=== PATIENT | female | born 1995 | race Caucasian/White ===

== ENCOUNTER 2024-07-02 16:12 | Emergency (ER) | payer SELFPAY ==
--- OUTSIDE RECORDS SUMMARY | 2024-07-02 16:18 | XMS REPORT | Continuity of Care Document ---
Author Name Unknown Address [address] [facility] [address] [place] [address] [facility] Address [address] [facility] [place] [address] Care Team Providers Care Chemistry Quality Control Analyst Name Role Phone PCP, PATIENT DOES NOT HAVE A Primary Care Physic mark Unavailable Eileen Hairston [facility] Attending Clinician JENNY Barbosa Attending Clinician Unavail TANESHA Vasquez Attending Clinician Tanesha Herrera DO Attending Clinician [phone] Francesco Shane Attending Clinician Unavailab JACLYN Malloy Attending Clinician Unavailable JACLYN NELSON Attending Clinician Unavailable Provider, Ang-Rmchp Temp Attending Clinician Cassie vailable Zander SAMANO Attending Clinician Unavailable Zander Simeon Attending Clinician Tong Hurtado Attending Clinician Unavailabl e Physician, No Primary or Family Admitting Clinic mark Unavailable Jada Mistry MD Unavailable Lenora Dudley MD Unavailable Unavailable Marissa Raphael MA Unavailable Unavailable Farrah Ortez MD Unavailable [phone] Kianna Potts MA Unavailable Unavailable Nellie Kenney MA Unavailable Unavailable Cutler DO, Vy Unavailable Payers Payer Name Policy Type Policy Number Effective Date Expirati on Date Source [employer] [place] [employer] [id number] 2022 00:00:00 [employer] [place] [employer] D [id number] 2014 00:00:00 2022 00:00:00 Capitated E [id number] 2022 00:00:00 2022 00:00:00 HTW-RMCHP [id number] 2022 00:00:00 Problems Condition Name Condition Details Condition Category Status Onset Date Resolution Date Last Treatment Date Treating Clinician Comments Source Rubella non-immune status, antepartum Rubella non-immune status, antepartum Disease Active 2012-11 00:00: 00 Overview: Formattin g of this note might be different from the original. Will need pp [facility] Depression Depression 47224-7 Active 2014-01-30 14:22:33 2.16.84 0.1.113 883.4.2 none noneMuluzanderu MD Jada vallejo 43980-2 Active 2013-04-27 08:48:46 Jada Mistry 2.16.84 0.1.113 883.4.2 Pharyngiti s (Renamed from Pharyngeal inflammati on) Pharyngiti s (Renamed from Pharyngeal inflammati on) (J02.9) (942)MD Lenora Dudley 74288-0 Active 2014-02-20 16:26:32 DudleyLenora davis 2.16.84 0.1.113 883.4.2 Post-traum a response Post-traum a response (F43.29) (309.9)Pro gnosis: patient scheduled with Dr. Epstein in February for follow up. she has good support with family. no suicidal or homicidal ideation. will refill psych meds for 1 month. [facility] as of MD Jada Horvath 07451-0 Active 2014-01-30 17:36:51 Jada Mistry 2.16.84 0.1.113 883.4.2 POST-TRAUM ATIC STRESS DISORDER POST-TRAUM ATIC STRESS DISORDER 11561-7 Active 2014-01-30 14:24:49 2.16.84 0.1.113 883.4.2 Pregnancie s () Pregnancie s ()YAMILET David nts: 0. 19689-3 Active 2014-02-20 13:23:08 Marissa Raphael 2.16.84 0.1.113 883.4.2 Routine child health exam Routine child health exam (V20.2)MD Jada Arndt 28590-2 Active 2013-04-27 08:48:46 Jada Mistry 2.16.84 0.1.113 883.4.2 SURVEILLAN CE OF OTHER CONTRACEPT CASSY METHOD DEPO-PROVE RA SURVEILLAN CE OF OTHER CONTRACEPT CASSY METHOD DEPO-PROVE RA (V25.49)Pr ognosis: Discussed that depot shot will not protect against STDs. eat diet rich in calcium. as of MD Jada Horvath 14056-8 Active 2014-01-30 17:50:07 Jada Mistry 2.16.84 0.1.113 883.4.2 Deliveries (Para) Deliveries (Para)Comm ents: Julieta 65461-1 Active 2022-07-08 09:42:23 2.16.84 0.1.113 883.4.2 Pregnancie s () Pregnancie s ()C omments: 2. 48391-3 Active 2022-07-08 09:42:20 2.16.84 0.1.113 883.4.2 Term TermCommen ts: 2. 68976-4 Active 2022-07-08 09:42:27 2.16.84 0.1.113 883.4.2 Worried well Worried well (Z71.1) (V65.5)Pro gnosis: Discussed pt's symptoms and concerns in detail. Physical exam done today showed no abnormalit ies and pt reassured. Pt instructed to f/u if she notes the area in question appears infected and oozing.Pt encouraged to also set up for her well woman exam.Infec tion precaution s provided.A ll of pt's questions and concerns addressed and pt verbalized understand ing. as of MD Farrah De Santiago 46902-1 Active 2022-07-08 13:08:31 Farrah Ortez 2.16.84 0.1.113 883.4.2 Encounter for gynecologi audrey examinatio n - 21-24 years old (Renamed from Encounter for gynecologi audrey examinatio n) Encounter for gynecologi audrey examinatio n - 21-24 years old (Renamed from Encounter for gynecologi audrey examinatio n) (Z01.419) (V72.31)YAMILET Jaramillo 21831-9 Active 2022-07-30 13:58:25 Kianna Potts 2.16.84 0.1.113 883.4.2 Deliveries (Para) Deliveries (Para)YAMILET Potts nts: 2. 22999-4 Active 2022-07-30 14:03:03 Kianna Potts 2.16.84 0.1.113 883.4.2 Pregnancie s () Pregnancie s ()YAMILET Mckenzie nts: 2. 17973-0 Active 2022-07-30 14:03:03 Kianna Potts 2.16.84 0.1.113 883.4.2 Term TermLaYAMILET wilson nts: 2. 28270-9 Active 2022-07-30 14:03:03 Kianna Potts 2.16.84 0.1.113 883.4.2 Attention Deficit Hyperactiv ity Disorder Attention Deficit Hyperactiv ity Disorder Active 2022-08-25 14:01:39 2.16.84 0.1.113 883.4.2 Deliveries (Para) Deliveries (Para)Comm ents: 2. Active 2022-08-25 14:20:40 2.16.84 0.1.113 883.4.2 Depression Depression Active 2022-08-25 14:01:39 2.16.84 0.1.113 883.4.2 none none Active 2022-08-25 14:01:39 2.16.84 0.1.113 883.4.2 POST-TRAUM ATIC STRESS DISORDER POST-TRAUM ATIC STRESS DISORDER Active 2022-08-25 14:01:39 2.16.84 0.1.113 883.4.2 Pregnancie s () Pregnancie s ()C omments: 2. 44588-4 Active 2022-08-25 14:20:40 2.16.84 0.1.113 883.4.2 Pregnancie s () Pregnancie s ()C omments: 0. 49260-1 Active 2022-08-25 14:20:40 2.16.84 0.1.113 883.4.2 Term TermCommen ts: 2. 43276-0 Active 2022-08-25 14:20:40 2.16.84 0.1.113 883.4.2 Vaginal cyst Vaginal cyst (N89.8) (623.8)Pro gnosis: ~2 x3 cm left side soft non tender vaginal cyst noted.Inci shabana and Drainage Procedure NotePRE-OP DIAGNOSIS: vaginal cystPOST-O P DIAGNOSIS: Same PROCEDURE: incision and drainage of vaginal cystPerfor anthony Physician: Dr. Rice URE: A timeout protocol was performed prior to initiating the procedure. The area was prepared and draped in the usual, sterile manner. The site was anesthetiz ed with 2% lidocaine with epinephrin e. A linear incision along the local skin line of the vagina was made and copious amount of pus noted and expressed. It was non foul smelling white purulent material. The cyst sac was ored and no capsule or cyst wall noted to be remove. Few stitches were placed to close incision and cyst opening. Bleeding was minimal. Followup: The patient tolerated the procedure well without complicati ons. Standard post-proce dure care is explained and return precaution s are given. as of MD Farrah De Santiago 15738-1 Active 2022-08-29 14:29:34 Farrah Ortez 2.16.84 0.1.113 883.4.2 BMI 25.0-25.9, adult (Renamed from Body mass index (BMI) of 25.0 to 25.9 in adult) BMI 25.0-25.9, adult (Renamed from Body mass index (BMI) of 25.0 to 25.9 in adult) (Z68.25) (V85.21)YAMILET Lee 47325-3 Active 2022-09-01 13:39:13 Nellie Kenney 2.16.84 0.1.113 883.4.2 Nicotine dependence Nicotine dependence (F17.200) (305.1)Pha n, DO Debra 81343-1 Active 2022-09-01 13:53:34 CutlerGerhardy 2.16.84 0.1.113 883.4.2 POST-TRAUM ATIC STRESS DISORDER POST-TRAUM ATIC STRESS DISORDERPh an, [place] Debra 07351-4 Active 2022-09-01 13:53:55 Cutler, Vy 2.16.84 0.1.113 883.4.2 Unspecifie d Diagnosis Unspecifie d DiagnosisR YAMILET shoemaker 81967-6 Active 2022-09-01 13:38:40 Nellie Kenney 2.16.84 0.1.113 883.4.2 Encounter for management and injection of depo-Prove ra (Renamed from Encounter for management and injection of injectable progestin contracept cassy) Encounter for management and injection of depo-Prove ra (Renamed from Encounter for management and injection of injectable progestin contracept cassy) (Z30.42) (V25.49)DO Debra Mcdonald 46406-6 Active 2022-09-01 16:12:07 Debra Cutler 12.25.83 0.1.113 883.4.2 Attention Deficit Hyperactiv ity Disorder Attention Deficit Hyperactiv ity DisorderMu MD Jada araujo 28155-7 Active 2014-01-30 17:44:37 Jada Mistry 12.25.83 0.1.113 883.4.2 Allergies, Adverse Reactions, Alerts Allergy Name Allergy Type Status Severity Reaction(s) Onset Date Inactive Date Treating Clinician Comments Source No Known Allergie s DA Active U 2020-11 00:00: 00 [facility] No Known Allergie s DA Active U 2020-11 00:00: 00 [facility] No Known Allergie s DA Active U 2020-11 00:00: 00 [facility] No Known Allergie s DA Active U 08-06 00:00: 00 [facility] No Known Allergie s DA Active U 08-06 00:00: 00 [facility] NO KNOWN ALLERGIE S Drug Class Active [facility] Social History Social Habit Start Date Stop Date Quantity Comments Source History of tobacco use Cigarette Smoker [facility] Alcohol Use: Non Drinker / N o Alcohol Use. 2.0.1.062400 .4.2 tobacco exposure 2.1 840.1.222728 .4.2 Tobacco/Smoke Exposure: Daily. 2.0.1.1138 83 .4.2 Drug Use: No drug use. 12.25.83 0.1.684261 .4.2 Primary Control Method: None. 2.0.1.1 15264 .4.2 Tobacco use: Current every d ay smoker. Smokes 1 pack of cigarettes per day. 2.840.1.723173 .4.2 Vaping/JUULing: Current ever y day smoker. 2.16.840.1.517192 .4.2 Alcohol intake 2023-04-02 00:00:00 2023-04-02 00:00:00 Current drinker of alcohol (finding) [facility] Exposure to SARS-CoV-2 (event) 2022-10-10 00:00:00 2022-10-20 15:08:00 Not sure [facility] Cigarettes smoked current (pack per day) - Reported 2022-10-20 00:00:00 2022-10-20 00:00:00 [facility] Cigarette pack-years 2022-10-20 00:00:00 2022-10-20 00:00:00 [facility] Tobacco use and exposure 2022-10-20 00:00:00 2022-10-20 00:00:00 Smokeless tobacco non-user [facility] Alcohol Comment 2022-10-20 00:00:00 2022-10-20 00:00:00 social [facility] Sex Assigned At 1995 00:00:00 1995 00:00:00 [facility] Smoking Status Start Date Stop Date Source Tobacco smoking consumption unknown Smokes tobacco daily 2022-10-20 00:00:00 [facility] Medications Ordered Medication Name Filled Medication Name Start Date Stop Date Current Medication? Ordering Clinician Indication Dosage Frequency Signature (SIG) Comments Components Source QUEtiapine 25 mg tablet 2021-11 10:37: 33 10-22 00:00 :00 No 25mg Take 25 mg by mouth. [facility] topiramate 100 mg tablet 2021-11 10:36: 44 Yes 100mg Take 100 mg by mouth. [facility] escitalopra m oxalate 20 mg tablet 2021-11 10:36: 44 Yes 25mg Take 25 mg by mouth. [facility] DM/P-EPHED/ ACETAMINOPH /DOXYLAM (NYQUIL ORAL) 2021-11 15:48: 57 Yes Take by mouth. [facility] Depo-Rat Farmer a 150 MG/ML Intramuscul ar Suspension 2021-11 0 00:00: 00 No 1{emre liter} Depo-Prove ra 150 MG/ML Intramuscu lar Suspension ; 1 (one) milliliter every three months for 90 days Quantity: 1 {Millilite r}Refills: 3Ordered: , DO VyStart: 2Comments: 1 injection every 3 months for 1 year 1 injection every 3 months for 1 year 2.16.84 0.1.113 883.4.2 Depo-Rat Farmer a 150 MG/ML Intramuscul ar Suspension 2021-11 0 00:00: 00 No 1{emre liter} Depo-Prove ra 150 MG/ML Intramuscu lar Suspension ; 1 (one) milliliter every three months for 90 days Quantity: 1 {Millilite r}Refills: 3Ordered: , DO VyStart: 2Comments: 1 injection every 3 months for 1 year 1 injection every 3 months for 1 year 2.16.84 0.1.113 883.4.2 Depo-Rat Farmer a 150 MG/ML Intramuscul ar Suspension 2021-11 0 00:00: 00 No 1{emre liter} Depo-Prove ra 150 MG/ML Intramuscu lar Suspension ; 1 (one) milliliter every three months for 90 days Quantity: 1 {Millilite r}Refills: 3Ordered: , DO VyStart: 2Comments: 1 injection every 3 months for 1 year 1 injection every 3 months for 1 year 2.16.84 0.1.113 883.4.2 Depo-Rat Farmer a 150 MG/ML Intramuscul ar Suspension 2021-11 0 00:00: 00 No 1{emre liter} Depo-Prove ra 150 MG/ML Intramuscu lar Suspension ; 1 (one) milliliter every three months for 90 days Quantity: 1 {Millilite r}Refills: 3Ordered: , DO VyStart: 2Comments: 1 injection every 3 months for 1 year 1 injection every 3 months for 1 year 2.16.84 0.1.113 883.4.2 VICKS NYQUIL COLD & FLU, 15-6.25-325 MG/15ML (Oral Liquid) 2021-11 0-17 14:19: 08-25 00:00 :00 No VICKS NYQUIL COLD & FLU, 15-6.25-32 5MG/15ML (Oral Liquid); (15-6.25-3 25 MG/15ML) End: 2Status: Discontinu ed 2.16.84 0.1.113 883.4.2 VICKS NYQUIL COLD & FLU, 15-6.25-325 MG/15ML (Oral Liquid) 2021-11 0- 14:19: 08-25 00:00 :00 No VICKS NYQUIL COLD & FLU, 15-6.25-32 5MG/15ML (Oral Liquid); (15-6.25-3 25 MG/15ML) End: 2Status: Discontinu ed 2.16.84 0.1.113 883.4.2 VICKS NYQUIL COLD & FLU, 15-6.25-325 MG/15ML (Oral Liquid) 2021-11 0 14:: 08-25 00:00 :00 No VICKS NYQUIL COLD & FLU, 15-6.25-32 5MG/15ML (Oral Liquid); (15-6.25-3 25 MG/15ML) End: 2Status: Discontinu ed 2.16.84 0.1.113 883.4.2 VICKS NYQUIL COLD & FLU, 15-6.25-325 MG/15ML (Oral Liquid) 2021-11 0-17 14:19: 08-25 00:00 :00 No VICKS NYQUIL COLD & FLU, 15-6.25-32 5MG/15ML (Oral Liquid); (15-6.25-3 25 MG/15ML) End: 2Status: Discontinu ed 2.16.84 0.1.113 883.4.2 VICKS NYQUIL COLD & FLU, 15-6.25-325 MG/15ML (Oral Liquid) 2021-11 14:19: 27 08-25 00:00 :00 No VICKS NYQUIL COLD & FLU, 15-6.25-32 5MG/15ML (Oral Liquid); (15-6.25-3 25 MG/15ML) End: 2Status: Discontinu ed 2.16.84 0.1.113 883.4.2 VICKS NYQUIL COLD & FLU, 15-6.25-325 MG/15ML (Oral Liquid) 2021-11 14:19: 27 08-25 00:00 :00 No VICKS NYQUIL COLD & FLU, 15-6.25-32 5MG/15ML (Oral Liquid); (15-6.25-3 25 MG/15ML) End: 2Status: Discontinu ed 2.16.84 0.1.113 883.4.2 VICKS NYQUIL COLD & FLU, 15-6.25-325 MG/15ML (Oral Liquid) 2021-11 14:19: 27 08-25 00:00 :00 No VICKS NYQUIL COLD & FLU, 15-6.25-32 5MG/15ML (Oral Liquid); (15-6.25-3 25 MG/15ML) End: 2Status: Discontinu ed 2.16.84 0.1.113 883.4.2 ADDERALL, 5MG (Oral Tablet) 07-08 09:41: 58 No 1{tab} QD ADDERALL, 5MG (Oral Tablet); 1 tab daily (5 MG)Status: Inactive 2.16.84 0.1.113 883.4.2 ADDERALL, 5MG (Oral Tablet) 07-08 09:41: 58 No 1{tab} QD ADDERALL, 5MG (Oral Tablet); 1 tab daily (5 MG)Status: Inactive 2.16.84 0.1.113 883.4.2 ADDERALL, 5MG (Oral Tablet) 07-08 09:41: 58 No 1{tab} QD ADDERALL, 5MG (Oral Tablet); 1 tab daily (5 MG)Status: Inactive 2.16.84 0.1.113 883.4.2 ADDERALL, 5MG (Oral Tablet) 07-08 09:41: 58 No 1{tab} QD ADDERALL, 5MG (Oral Tablet); 1 tab daily (5 MG)Status: Inactive 2.16.84 0.1.113 883.4.2 ADDERALL, 5MG (Oral Tablet) 07-08 09:41: 58 No 1{tab} QD ADDERALL, 5MG (Oral Tablet); 1 tab daily (5 MG)Status: Inactive 2.16.84 0.1.113 883.4.2 ADDERALL, 5MG (Oral Tablet) 07-08 09:41: 58 No 1{tab} QD ADDERALL, 5MG (Oral Tablet); 1 tab daily (5 MG)Status: Inactive 2.16.84 0.1.113 883.4.2 ADDERALL, 5MG (Oral Tablet) 07-08 09:41: 58 No 1{tab} QD ADDERALL, 5MG (Oral Tablet); 1 tab daily (5 MG)Status: Inactive 2.16.84 0.1.113 883.4.2 ADDERALL, 5MG (Oral Tablet) 07-08 09:41: 58 No 1{tab} QD ADDERALL, 5MG (Oral Tablet); 1 tab daily (5 MG)Status: Inactive 2.16.84 0.1.113 883.4.2 ADDERALL, 5MG (Oral Tablet) 07-08 09:41: 58 No 1{tab} QD ADDERALL, 5MG (Oral Tablet); 1 tab daily (5 MG)Status: Inactive 2.16.84 0.1.113 883.4.2 ADDERALL, 5MG (Oral Tablet) 07-08 09:41: 58 No 1{tab} QD ADDERALL, 5MG (Oral Tablet); 1 tab daily (5 MG)Status: Inactive 2.16.84 0.1.113 883.4.2 EMMYKS NYQUIL COLD & FLU, 15-6.25-325 MG/15ML (Oral Liquid) 02-21 11:04: 51 No VICKS NYQUIL COLD & FLU, 15-6.25-32 5MG/15ML (Oral Liquid); (15-6.25-3 25 MG/15ML) 2.16.84 0.1.113 883.4.2 VICKS NYQUIL COLD & FLU, 15-6.25-325 MG/15ML (Oral Liquid) 02-21 11:04: 51 No VICKS NYQUIL COLD & FLU, 15-6.25-32 5MG/15ML (Oral Liquid); (15-6.25-3 25 MG/15ML) 2.16.84 0.1.113 883.4.2 VICKS NYQUIL COLD & FLU, 15-6.25-325 MG/15ML (Oral Liquid) 02-21 11:04: 51 No VICKS NYQUIL COLD & FLU, 15-6.25-32 5MG/15ML (Oral Liquid); (15-6.25-3 25 MG/15ML) 2.16.84 0.1.113 883.4.2 VICKS NYQUIL COLD & FLU, 15-6.25-325 MG/15ML (Oral Liquid) 02-21 11:04: 51 No VICKS NYQUIL COLD & FLU, 15-6.25-32 5MG/15ML (Oral Liquid); (15-6.25-3 25 MG/15ML) 2.16.84 0.1.113 883.4.2 ADDERALL, 5MG (Oral Tablet) 01-30 17:44: 54 No 1{tab} QD ADDERALL, 5MG (Oral Tablet); 1 tab daily (5 MG) 2.16.84 0.1.113 883.4.2 ESCITALOPRA M OXALATE, 20MG (Oral Tablet) 01-30 00:00: 00 03-01 00:00 :00 No 1{Table t} ESCITALOPR AM OXALATE, 20MG (Oral Tablet); 1 tab Tablet every morning for 30 days Quantity: 30 {Tablet}Re fills: 0Ordered: MD Yuliet RamaStart: 4 End: 4Status: Inactive 2.16.84 0.1.113 883.4.2 QUETIAPINE FUMARATE, 25MG (Oral Tablet) 01-30 00:00: 00 03-01 00:00 :00 No 1{Table t} QUETIAPINE FUMARATE, 25MG (Oral Tablet); 1 tab Tablet at bedtime for 30 days Quantity: 30 {Tablet}Re fills: 0Ordered: 4MD Maryan [place]: 4 End: 4Status: Inactive 2.16.84 0.1.113 883.4.2 TOPAMAX, 100MG (Oral Tablet) 01-30 00:00: 00 03-01 00:00 :00 No 1{Table t} QD TOPAMAX, 100MG (Oral Tablet); 1 tab Tablet daily for 30 days Quantity: 30 {Tablet}Re fills: 0Ordered: 4MD Maryan Mistryart: 4 End: 4Status: Inactive 2.16.84 0.1.113 883.4.2 ESCITALOPRA M OXALATE, 20MG (Oral Tablet) 01-30 00:00: 00 03-01 00:00 :00 No 1{Table t} ESCITALOPR AM OXALATE, 20MG (Oral Tablet); 1 tab Tablet every morning for 30 days Quantity: 30 {Tablet}Re fills: 0Ordered: 4MD Maryan Mistryart: 4 End: 4Status: Inactive 2.16.84 0.1.113 883.4.2 QUETIAPINE FUMARATE, 25MG (Oral Tablet) 01-30 00:00: 00 03-01 00:00 :00 No 1{Table t} QUETIAPINE FUMARATE, 25MG (Oral Tablet); 1 tab Tablet at bedtime for 30 days Quantity: 30 {Tablet}Re fills: 0Ordered: MD Kate Horvath: 4 End: 4Status: Inactive 2.16.84 0.1.113 883.4.2 TOPAMAX, 100MG (Oral Tablet) 01-30 00:00: 00 03-01 00:00 :00 No 1{Table t} QD TOPAMAX, 100MG (Oral Tablet); 1 tab Tablet daily for 30 days Quantity: 30 {Tablet}Re fills: 0Ordered: MD Floyd HorvathaStart: 4 End: 4Status: Inactive 2.16.84 0.1.113 883.4.2 ESCITALOPRA M OXALATE, 20MG (Oral Tablet) 01-30 00:00: 00 03-01 00:00 :00 No 1{Table t} ESCITALOPR AM OXALATE, 20MG (Oral Tablet); 1 tab Tablet every morning for 30 days Quantity: 30 {Tablet}Re fills: 0Ordered: MD Kate Horvath: 4 End: 4Status: Inactive 2.16.84 0.1.113 883.4.2 QUETIAPINE FUMARATE, 25MG (Oral Tablet) 01-30 00:00: 00 03-01 00:00 :00 No 1{Table t} QUETIAPINE FUMARATE, 25MG (Oral Tablet); 1 tab Tablet at bedtime for 30 days Quantity: 30 {Tablet}Re fills: 0Ordered: MD Maryan Horvathart: 4 End: 4Status: Inactive 2.16.84 0.1.113 883.4.2 TOPAMAX, 100MG (Oral Tablet) 01-30 00:00: 00 03-01 00:00 :00 No 1{Table t} QD TOPAMAX, 100MG (Oral Tablet); 1 tab Tablet daily for 30 days Quantity: 30 {Tablet}Re fills: 0Ordered: MD Kate Horvath: 4 End: 4Status: Inactive 2.16.84 0.1.113 883.4.2 ESCITALOPRA M OXALATE, 20MG (Oral Tablet) 01-30 00:00: 00 03-01 00:00 :00 No 1{Table t} ESCITALOPR AM OXALATE, 20MG (Oral Tablet); 1 tab Tablet every morning for 30 days Quantity: 30 {Tablet}Re fills: 0Ordered: MD Floyd HorvathaStart: 4 End: 4Status: Inactive 2.16.84 0.1.113 883.4.2 QUETIAPINE FUMARATE, 25MG (Oral Tablet) 01-30 00:00: 00 03-01 00:00 :00 No 1{Table t} QUETIAPINE FUMARATE, 25MG (Oral Tablet); 1 tab Tablet at bedtime for 30 days Quantity: 30 {Tablet}Re fills: 0Ordered: MD Yuliet RamaStart: 4 End: 4Status: Inactive 2.16.84 0.1.113 883.4.2 TOPAMAX, 100MG (Oral Tablet) 01-30 00:00: 00 03-01 00:00 :00 No 1{Table t} QD TOPAMAX, 100MG (Oral Tablet); 1 tab Tablet daily for 30 days Quantity: 30 {Tablet}Re fills: 0Ordered: MD Yuliet RamaStart: 4 End: 4Status: Inactive 2.16.84 0.1.113 883.4.2 ESCITALOPRA M OXALATE, 20MG (Oral Tablet) 01-30 00:00: 00 03-01 00:00 :00 No 1{Table t} ESCITALOPR AM OXALATE, 20MG (Oral Tablet); 1 tab Tablet every morning for 30 days Quantity: 30 {Tablet}Re fills: 0Ordered: MD Floyd HorvathaStart: 4 End: 4Status: Inactive 2.16.84 0.1.113 883.4.2 QUETIAPINE FUMARATE, 25MG (Oral Tablet) 01-30 00:00: 00 03-01 00:00 :00 No 1{Table t} QUETIAPINE FUMARATE, 25MG (Oral Tablet); 1 tab Tablet at bedtime for 30 days Quantity: 30 {Tablet}Re fills: 0Ordered: MD Floyd HorvathaStart: 4 End: 4Status: Inactive 2.16.84 0.1.113 883.4.2 TOPAMAX, 100MG (Oral Tablet) 01-30 00:00: 00 03-01 00:00 :00 No 1{Table t} QD TOPAMAX, 100MG (Oral Tablet); 1 tab Tablet daily for 30 days Quantity: 30 {Tablet}Re fills: 0Ordered: [facility] End: 4Status: Inactive 2.16.84 0.1.113 883.4.2 ESCITALOPRA M OXALATE, 20MG (Oral Tablet) 01-30 00:00: 00 03-01 00:00 :00 No 1{Table t} ESCITALOPR AM OXALATE, 20MG (Oral Tablet); 1 tab Tablet every morning for 30 days Quantity: 30 {Tablet}Re fills: 0Ordered: MD Floyd HorvathaStart: 4 End: 4Status: Inactive 2.16.84 0.1.113 883.4.2 QUETIAPINE FUMARATE, 25MG (Oral Tablet) 01-30 00:00: 00 03-01 00:00 :00 No 1{Table t} QUETIAPINE FUMARATE, 25MG (Oral Tablet); 1 tab Tablet at bedtime for 30 days Quantity: 30 {Tablet}Re fills: 0Ordered: MD Maryan Horvathart: 4 End: 4Status: Inactive 2.16.84 0.1.113 883.4.2 TOPAMAX, 100MG (Oral Tablet) 01-30 00:00: 00 03-01 00:00 :00 No 1{Table t} QD TOPAMAX, 100MG (Oral Tablet); 1 tab Tablet daily for 30 days Quantity: 30 {Tablet}Re fills: 0Ordered: MD Floyd HorvathaStart: 4 End: 4Status: Inactive 2.16.84 0.1.113 883.4.2 ESCITALOPRA M OXALATE, 20MG (Oral Tablet) 01-30 00:00: 00 03-01 00:00 :00 No 1{Table t} ESCITALOPR AM OXALATE, 20MG (Oral Tablet); 1 tab Tablet every morning for 30 days Quantity: 30 {Tablet}Re fills: 0Ordered: MD Yuliet RamaStart: 4 End: 4Status: Inactive 2.16.84 0.1.113 883.4.2 QUETIAPINE FUMARATE, 25MG (Oral Tablet) 01-30 00:00: 00 03-01 00:00 :00 No 1{Table t} QUETIAPINE FUMARATE, 25MG (Oral Tablet); 1 tab Tablet at bedtime for 30 days Quantity: 30 {Tablet}Re fills: 0Ordered: MD Yuliet RamaStart: 4 End: 4Status: Inactive 2.16.84 0.1.113 883.4.2 TOPAMAX, 100MG (Oral Tablet) 01-30 00:00: 00 03-01 00:00 :00 No 1{Table t} QD TOPAMAX, 100MG (Oral Tablet); 1 tab Tablet daily for 30 days Quantity: 30 {Tablet}Re fills: 0Ordered: [place]: 4 End: 4Status: Inactive 2.16.84 0.1.113 883.4.2 ESCITALOPRA M OXALATE, 20MG (Oral Tablet) 01-30 00:00: 00 03-01 00:00 :00 No 1{Table t} ESCITALOPR AM OXALATE, 20MG (Oral Tablet); 1 tab Tablet every morning for 30 days Quantity: 30 {Tablet}Re fills: 0Ordered: MD Floyd HorvathaStart: 4 End: 4Status: Inactive 2.16.84 0.1.113 883.4.2 QUETIAPINE FUMARATE, 25MG (Oral Tablet) 01-30 00:00: 00 03-01 00:00 :00 No 1{Table t} QUETIAPINE FUMARATE, 25MG (Oral Tablet); 1 tab Tablet at bedtime for 30 days Quantity: 30 {Tablet}Re fills: 0Ordered: MD Floyd HorvathaStart: 4 End: 4Status: Inactive 2.16.84 0.1.113 883.4.2 TOPAMAX, 100MG (Oral Tablet) 01-30 00:00: 00 03-01 00:00 :00 No 1{Table t} QD TOPAMAX, 100MG (Oral Tablet); 1 tab Tablet daily for 30 days Quantity: 30 {Tablet}Re fills: 0Ordered: MD Floyd HorvathaStart: 4 End: 4Status: Inactive 2.16.84 0.1.113 883.4.2 ESCITALOPRA M OXALATE, 20MG (Oral Tablet) 01-30 00:00: 00 03-01 00:00 :00 No 1{Table t} ESCITALOPR AM OXALATE, 20MG (Oral Tablet); 1 tab Tablet every morning for 30 days Quantity: 30 {Tablet}Re fills: 0Ordered: MD Kate Horvath: 4 End: 4Status: Inactive 2.16.84 0.1.113 883.4.2 QUETIAPINE FUMARATE, 25MG (Oral Tablet) 01-30 00:00: 00 03-01 00:00 :00 No 1{Table t} QUETIAPINE FUMARATE, 25MG (Oral Tablet); 1 tab Tablet at bedtime for 30 days Quantity: 30 {Tablet}Re fills: 0Ordered: MD Floyd HorvathaStart: 4 End: 4Status: Inactive 2.16.84 0.1.113 883.4.2 TOPAMAX, 100MG (Oral Tablet) 01-30 00:00: 00 03-01 00:00 :00 No 1{Table t} QD TOPAMAX, 100MG (Oral Tablet); 1 tab Tablet daily for 30 days Quantity: 30 {Tablet}Re fills: 0Ordered: MD Floyd HorvathaStart: 4 End: 4Status: Inactive 2.16.84 0.1.113 883.4.2 ESCITALOPRA M OXALATE, 20MG (Oral Tablet) 01-30 00:00: 00 03-01 00:00 :00 No 1{Table t} ESCITALOPR AM OXALATE, 20MG (Oral Tablet); 1 tab Tablet every morning for 30 days Quantity: 30 {Tablet}Re fills: 0Ordered: MD Floyd HorvathaStart: 4 End: 4Status: Inactive 2.16.84 0.1.113 883.4.2 QUETIAPINE FUMARATE, 25MG (Oral Tablet) 01-30 00:00: 00 03-01 00:00 :00 No 1{Table t} QUETIAPINE FUMARATE, 25MG (Oral Tablet); 1 tab Tablet at bedtime for 30 days Quantity: 30 {Tablet}Re fills: 0Ordered: MD Floyd HorvathaStart: 4 End: 4Status: Inactive 2.16.84 0.1.113 883.4.2 TOPAMAX, 100MG (Oral Tablet) 01-30 00:00: 00 03-01 00:00 :00 No 1{Table t} QD TOPAMAX, 100MG (Oral Tablet); 1 tab Tablet daily for 30 days Quantity: 30 {Tablet}Re fills: 0Ordered: MD Floyd HorvathaStart: 4 End: 4Status: Inactive 2.16.84 0.1.113 883.4.2 ESCITALOPRA M OXALATE, 20MG (Oral Tablet) 01-30 00:00: 00 03-01 00:00 :00 No 1{Table t} ESCITALOPR AM OXALATE, 20MG (Oral Tablet); 1 tab Tablet every morning for 30 days Quantity: 30 {Tablet}Re fills: 0Ordered: MD Floyd HorvathaStart: 4 End: 4Status: Inactive 2.16.84 0.1.113 883.4.2 QUETIAPINE FUMARATE, 25MG (Oral Tablet) 01-30 00:00: 00 03-01 00:00 :00 No 1{Table t} QUETIAPINE FUMARATE, 25MG (Oral Tablet); 1 tab Tablet at bedtime for 30 days Quantity: 30 {Tablet}Re fills: 0Ordered: MD Floyd HorvathaStart: 4 End: 4Status: Inactive 2.16.84 0.1.113 883.4.2 TOPAMAX, 100MG (Oral Tablet) 01-30 00:00: 00 03-01 00:00 :00 No 1{Table t} QD TOPAMAX, 100MG (Oral Tablet); 1 tab Tablet daily for 30 days Quantity: 30 {Tablet}Re fills: 0Ordered: MD Kate Horvath: 4 End: 4Status: Inactive 2.16.84 0.1.113 883.4.2 medroxyPROG ESTERone (DEPO-PROVE RA) injection 150 mg 08-02 19:00: 00 10-22 16:38 :30 No [id number] 150mg [facility] D-METHORPHA N/PE/ACETAM INOPHEN (VICKS DAYQUIL ORAL) 08-02 13:54: 04 Yes Take by mouth. [facility] DM/P-EPHED/ ACETAMINOPH /DOXYLAM (NYQUIL ORAL) 08-02 13:54: 03 Yes Take by mouth. [facility] ZITHROMAX Z-DALIA, 250MG (Oral Tablet) 04-18 00:00: 00 04-23 00:00 :00 No 1{Table t} QD ZITHROMAX Z-DALIA, 250MG (Oral Tablet); 1 Tablet daily for 5 days Quantity: 6 {Tablet}Re fills: 0Ordered: 3Lopez, EricStart: 3 End: 3Status: InactiveCo mments: 2 po qd x 1d; then 1 po qd x 4 days. 2 po qd x 1d; then 1 po qd x 4 days. 2.16.84 0.1.113 883.4.2 ZITHROMAX Z-DALIA, 250MG (Oral Tablet) 04-18 00:00: 00 04-23 00:00 :00 No 1{Table t} QD ZITHROMAX Z-DALIA, 250MG (Oral Tablet); 1 Tablet daily for 5 days Quantity: 6 {Tablet}Re fills: 0Ordered: 3Lopez, EricStart: 3 End: 3Status: InactiveCo mments: 2 po qd x 1d; then 1 po qd x 4 days. 2 po qd x 1d; then 1 po qd x 4 days. 2.16.84 0.1.113 883.4.2 ZITHROMAX Z-DALIA, 250MG (Oral Tablet) 04-18 00:00: 00 04-23 00:00 :00 No 1{Table t} QD ZITHROMAX Z-DALIA, 250MG (Oral Tablet); 1 Tablet daily for 5 days Quantity: 6 {Tablet}Re fills: 0Ordered: 3Lopez, EricStart: 3 End: 3Status: InactiveCo mments: 2 po qd x 1d; then 1 po qd x 4 days. 2 po qd x 1d; then 1 po qd x 4 days. 2.16.84 0.1.113 883.4.2 ZITHROMAX Z-DALIA, 250MG (Oral Tablet) 04-18 00:00: 00 04-23 00:00 :00 No 1{Table t} QD ZITHROMAX Z-DALIA, 250MG (Oral Tablet); 1 Tablet daily for 5 days Quantity: 6 {Tablet}Re fills: 0Ordered: 3Lopez, EricStart: 3 End: 3Status: InactiveCo mments: 2 po qd x 1d; then 1 po qd x 4 days. 2 po qd x 1d; then 1 po qd x 4 days. 2.16.84 0.1.113 883.4.2 ZITHROMAX Z-DALIA, 250MG (Oral Tablet) 04-18 00:00: 00 04-23 00:00 :00 No 1{Table t} QD ZITHROMAX Z-DALIA, 250MG (Oral Tablet); 1 Tablet daily for 5 days Quantity: 6 {Tablet}Re fills: 0Ordered: 3Lopez, EricStart: 3 End: 3Status: InactiveCo mments: 2 po qd x 1d; then 1 po qd x 4 days. 2 po qd x 1d; then 1 po qd x 4 days. 2.16.84 0.1.113 883.4.2 ZITHROMAX Z-DALIA, 250MG (Oral Tablet) 04-18 00:00: 00 04-23 00:00 :00 No 1{Table t} QD ZITHROMAX Z-DALIA, 250MG (Oral Tablet); 1 Tablet daily for 5 days Quantity: 6 {Tablet}Re fills: 0Ordered: 3Lopez, EricStart: 3 End: 3Status: InactiveCo mments: 2 po qd x 1d; then 1 po qd x 4 days. 2 po qd x 1d; then 1 po qd x 4 days. 2.16.84 0.1.113 883.4.2 ZITHROMAX Z-DALIA, 250MG (Oral Tablet) 04-18 00:00: 00 04-23 00:00 :00 No 1{Table t} QD ZITHROMAX Z-DALIA, 250MG (Oral Tablet); 1 Tablet daily for 5 days Quantity: 6 {Tablet}Re fills: 0Ordered: 3Lopez, EricStart: 3 End: 3Status: InactiveCo mments: 2 po qd x 1d; then 1 po qd x 4 days. 2 po qd x 1d; then 1 po qd x 4 days. 2.16.84 0.1.113 883.4.2 ZITHROMAX Z-DALIA, 250MG (Oral Tablet) 04-18 00:00: 00 04-23 00:00 :00 No 1{Table t} QD ZITHROMAX Z-DALIA, 250MG (Oral Tablet); 1 Tablet daily for 5 days Quantity: 6 {Tablet}Re fills: 0Ordered: 3Lopez, EricStart: 3 End: 3Status: InactiveCo mments: 2 po qd x 1d; then 1 po qd x 4 days. 2 po qd x 1d; then 1 po qd x 4 days. 2.16.84 0.1.113 883.4.2 ZITHROMAX Z-DALIA, 250MG (Oral Tablet) 04-18 00:00: 00 04-23 00:00 :00 No 1{Table t} QD ZITHROMAX Z-DALIA, 250MG (Oral Tablet); 1 Tablet daily for 5 days Quantity: 6 {Tablet}Re fills: 0Ordered: 3Lopez, EricStart: 3 End: 3Status: InactiveCo mments: 2 po qd x 1d; then 1 po qd x 4 days. 2 po qd x 1d; then 1 po qd x 4 days. 2.16.84 0.1.113 883.4.2 ZITHROMAX Z-DALIA, 250MG (Oral Tablet) 04-18 00:00: 00 04-23 00:00 :00 No 1{Table t} QD ZITHROMAX Z-DALIA, 250MG (Oral Tablet); 1 Tablet daily for 5 days Quantity: 6 {Tablet}Re fills: 0Ordered: 3Lopez, EricStart: 3 End: 3Status: InactiveCo mments: 2 po qd x 1d; then 1 po qd x 4 days. 2 po qd x 1d; then 1 po qd x 4 days. 2.16.84 0.1.113 883.4.2 ZITHROMAX Z-DALIA, 250MG (Oral Tablet) 04-18 00:00: 00 04-23 00:00 :00 No 1{Table t} QD ZITHROMAX Z-DALIA, 250MG (Oral Tablet); 1 Tablet daily for 5 days Quantity: 6 {Tablet}Re fills: 0Ordered: 3Lopez, EricStart: 3 End: 3Status: InactiveCo mments: 2 po qd x 1d; then 1 po qd x 4 days. 2 po qd x 1d; then 1 po qd x 4 days. 2.16.84 0.1.113 883.4.2 Vital Signs Vital Name Observation Time Observation Value Comments S ource Systolic blood pressure 2022-10-20 21:43:00 105 mm[Hg] [facility] Diastolic blood pressure 2022-10-20 21:43:00 77 mm[Hg] [facility] Heart rate 2022-10-20 21:43:00 96 /min [facility] Body temperature 2022-10-20 21:43:00 36.78 Addie [facility] Respiratory rate 2022-10-20 21:43:00 16 /min [facility] Body height 2022-10-20 21:43:00 160 cm [facility] Body weight 2022-10-20 21:43:00 61.009 kg [facility] BMI 2022-10-20 21:43:00 23.83 kg/m2 [facility] Systolic blood pressure 2022-10-18 22:20:00 136 mm[Hg] [facility] Diastolic blood pressure 2022-10-18 22:20:00 90 mm[Hg] [facility] Heart rate 2022-10-18 22:20:00 98 /min [facility] Body temperature 2022-10-18 22:20:00 37.11 Addie [facility] Respiratory rate 2022-10-18 22:20:00 20 /min [facility] Body weight 2022-10-18 22:20:00 60.782 kg [facility] Oxygen saturation in Arterial blood by Pulse oximetry 2022-10-18 22:20:00 100 /min [facility] Temperature 2022-09-01 13:33:48 97.2 [degF] Method: Oral 2.16.840.1.58681 3.4.2 Pulse 2022-09-01 13:33:48 90 /min Pattern: Regular 2.16.840.1.24892 3.4.2 Respiration Rate 2022-09-01 13:33:48 18 /min Pattern: Unlabored 2.16.840.1.00614 3.4.2 BP Systolic 2022-09-01 13:33:48 98 mm[Hg] Patient Position: Sitting; Cuff Location: Left Arm; Cuff Size: Standard 2.16.840.1.38948 3.4.2 BP Diastolic 2022-09-01 13:33:48 66 mm[Hg] Patient Position: Sitting; Cuff Location: Left Arm; Cuff Size: Standard 2.16.840.1.77701 3.4.2 Weight 2022-09-01 13:33:48 141.5 [lb_av] 2.16.840.1.55921 3.4.2 Height 2022-09-01 13:33:48 62 [in_us] 2.16.840.1.86088 3.4.2 BMI 2022-09-01 13:33:48 25.88 kg/m2 2.16.840.1.75712 3.4.2 Temperature 2022-08-25 14:15:36 97 [degF] Method: Oral 2.16.840.1.73092 3.4.2 Pulse 2022-08-25 14:15:36 122 /min Pattern: Regular 2.16.840.1.20510 3.4.2 Respiration Rate 2022-08-25 14:15:36 20 /min Pattern: Unlabored 2.16.840.1.48435 3.4.2 BP Systolic 2022-08-25 14:15:36 116 mm[Hg] Patient Position: Sitting; Cuff Location: Left Arm; Cuff Size: Standard 2.16.840.1.17207 3.4.2 BP Diastolic 2022-08-25 14:15:36 80 mm[Hg] Patient Position: Sitting; Cuff Location: Left Arm; Cuff Size: Standard 2.16.840.1.64015 3.4.2 Weight 2022-08-25 14:15:36 142.5 [lb_av] 2.16.840.1.38281 3.4.2 Height 2022-08-25 14:15:36 62 [in_us] 2.16.840.1.93838 3.4.2 BMI 2022-08-25 14:15:36 26.06 kg/m2 2.16.840.1.89312 3.4.2 Temperature 2022-07-30 14:00:23 99 [degF] Method: Oral 2.16.840.1.43596 3.4.2 Pulse 2022-07-30 14:00:23 114 /min Pattern: Regular 2.16.840.1.11233 3.4.2 Respiration Rate 2022-07-30 14:00:23 16 /min Pattern: Unlabored 2.16.840.1.49045 3.4.2 BP Systolic 2022-07-30 14:00:23 115 mm[Hg] Patient Position: Sitting; Cuff Location: Left Arm; Cuff Size: Standard 2.16.840.1.96083 3.4.2 BP Diastolic 2022-07-30 14:00:23 75 mm[Hg] Patient Position: Sitting; Cuff Location: Left Arm; Cuff Size: Standard 2.16.840.1.72060 3.4.2 Weight 2022-07-30 14:00:23 141.25 [lb_av] 2.16.840.1.61491 3.4.2 Height 2022-07-30 14:00:23 62 [in_us] 2.16.840.1.37027 3.4.2 BMI 2022-07-30 14:00:23 25.83 kg/m2 2.16.840.1.29167 3.4.2 Temperature 2022-07-08 09:40:30 98.3 [degF] Method: Oral 2.16.840.1.03524 3.4.2 Pulse 2022-07-08 09:40:30 101 /min Pattern: Regular 2.16.840.1.75191 3.4.2 Respiration Rate 2022-07-08 09:40:30 15 /min Pattern: Unlabored 2.16.840.1.04496 3.4.2 BP Systolic 2022-07-08 09:40:30 119 mm[Hg] Patient Position: Sitting; Cuff Location: Left Arm; Cuff Size: Standard 2.16.840.1.88894 3.4.2 BP Diastolic 2022-07-08 09:40:30 72 mm[Hg] Patient Position: Sitting; Cuff Location: Left Arm; Cuff Size: Standard 2.16.840.1.74084 3.4.2 Weight 2022-07-08 09:40:30 145.5 [lb_av] 2.16.840.1.77770 3.4.2 Height 2022-07-08 09:40:30 62 [in_us] 2.16.840.1.69896 3.4.2 BMI 2022-07-08 09:40:30 26.61 kg/m2 2.16.840.1.49483 3.4.2 Temperature 2014-02-20 15:14:00 99.1 [degF] 2.16.840.1.60340 3.4.2 Pulse 2014-02-20 15:14:00 125 /min Pattern: Regular 2.16.840.1.31029 3.4.2 Respiration Rate 2014-02-20 15:14:00 20 /min 2.16.840.1.23115 3.4.2 BP Systolic 2014-02-20 15:14:00 116 mm[Hg] 2.16.840.1.34602 3.4.2 BP Diastolic 2014-02-20 15:14:00 73 mm[Hg] 2.16.840.1.20731 3.4.2 Weight 2014-02-20 15:14:00 107 [lb_av] 2.16.840.1.42705 3.4.2 Height 2014-02-20 15:14:00 62 [in_us] 2.16.840.1.55123 3.4.2 BMI 2014-02-20 15:14:00 19.57 kg/m2 2.16.840.1.69573 3.4.2 BMI Percentile 2014-02-20 15:14:00 35 % 2.16.840.1.04213 3.4.2 Temperature 2014-01-30 14:14:54 98.6 [degF] Method: Oral 2.16.840.1.74120 3.4.2 Pulse 2014-01-30 14:14:54 95 /min Pattern: Regular 2.16.840.1.43664 3.4.2 Respiration Rate 2014-01-30 14:14:54 20 /min Pattern: Unlabored 2.16.840.1.45464 3.4.2 BP Systolic 2014-01-30 14:14:54 121 mm[Hg] Patient Position: Sitting; Cuff Location: Left Arm; Cuff Size: Standard 2.16.840.1.10263 3.4.2 BP Diastolic 2014-01-30 14:14:54 81 mm[Hg] Patient Position: Sitting; Cuff Location: Left Arm; Cuff Size: Standard 2.16.840.1.52445 3.4.2 Weight 2014-01-30 14:14:54 118.125 [lb_av] 2.16.840.1.10525 3.4.2 Height 2014-01-30 14:14:54 62 [in_us] 2.16.840.1.01723 3.4.2 BMI 2014-01-30 14:14:54 21.61 kg/m2 2.16.840.1.16536 3.4.2 BMI Percentile 2014-01-30 14:14:54 62 % 2.16.840.1.52974 3.4.2 Temperature 2013-04-25 11:03:46 96.9 [degF] Method: Oral 2.16.840.1.43411 3.4.2 Pulse 2013-04-25 11:03:46 63 /min Pattern: Regular 2.16.840.1.50526 3.4.2 Respiration Rate 2013-04-25 11:03:46 16 /min Pattern: Unlabored 2.16.840.1.36505 3.4.2 BP Systolic 2013-04-25 11:03:46 95 mm[Hg] Patient Position: Sitting; Cuff Location: Right Arm; Cuff Size: Standard 2.16.840.1.98275 3.4.2 BP Diastolic 2013-04-25 11:03:46 62 mm[Hg] Patient Position: Sitting; Cuff Location: Right Arm; Cuff Size: Standard 2.16.840.1.62036 3.4.2 Weight 2013-04-25 11:03:46 114.25 [lb_av] 2.16.840.1.74229 3.4.2 Height 2013-04-25 11:03:46 63.5 [in_us] 2.16.840.1.16583 3.4.2 BMI 2013-04-25 11:03:46 19.92 kg/m2 2.16.840.1.96681 3.4.2 BMI Percentile 2013-04-25 11:03:46 46 % 2.16.840.1.29195 3.4.2 Temperature 2013-04-18 17:19:47 99.7 [degF] Method: Oral 2.16.840.1.31540 3.4.2 Pulse 2013-04-18 17:19:47 118 /min Pattern: Regular 2.16.840.1.50315 3.4.2 Respiration Rate 2013-04-18 17:19:47 20 /min Pattern: Unlabored 2.16.840.1.21933 3.4.2 BP Systolic 2013-04-18 17:19:47 125 mm[Hg] Patient Position: Sitting; Cuff Location: Left Arm; Cuff Size: Standard 2.16.840.1.74243 3.4.2 BP Diastolic 2013-04-18 17:19:47 80 mm[Hg] Patient Position: Sitting; Cuff Location: Left Arm; Cuff Size: Standard 2.16.840.1.02551 3.4.2 Weight 2013-04-18 17:19:47 113.2 [lb_av] 2.16.840.1.41857 3.4.2 Temperature 2004-09-09 09:15:00 98.2 [degF] Method: Oral 2.16.840.1.27247 3.4.2 Pulse 2004-09-09 09:15:00 116 /min Pattern: Regular 2.16.840.1.13479 3.4.2 Respiration Rate 2004-09-09 09:15:00 20 /min Pattern: Unlabored 2.16.840.1.61043 3.4.2 BP Systolic 2004-09-09 09:15:00 80 mm[Hg] Patient Position: Sitting; Cuff Location: Right Arm; Cuff Size: Standard 2.16.840.1.80564 3.4.2 BP Diastolic 2004-09-09 09:15:00 52 mm[Hg] Patient Position: Sitting; Cuff Location: Right Arm; Cuff Size: Standard 2.16.840.1.06439 3.4.2 Weight 2004-09-09 09:15:00 46 [lb_av] 2.16.840.1.94929 3.4.2 Height 2004-09-09 09:15:00 46 [in_us] 2.16.840.1.17811 3.4.2 BMI 2004-09-09 09:15:00 15.28 kg/m2 2.16.840.1.07503 3.4.2 BMI Percentile 2004-09-09 09:15:00 46 % 2.16.840.1.19544 3.4.2 Head Circumference 2004-09-09 09:15:00 0.00 cm 2.16.840.1.31196 3.4.2 Temperature 2004-01-29 16:16:00 97.3 [degF] Method: Oral 2.16.840.1.98221 3.4.2 Pulse 2004-01-29 16:16:00 84 /min Pattern: Regular 2.16.840.1.37947 3.4.2 Respiration Rate 2004-01-29 16:16:00 20 /min Pattern: Unlabored 2.16.840.1.35562 3.4.2 BP Systolic 2004-01-29 16:16:00 82 mm[Hg] Patient Position: Sitting; Cuff Location: Right Arm; Cuff Size: Small 2.16.840.1.82836 3.4.2 BP Diastolic 2004-01-29 16:16:00 50 mm[Hg] Patient Position: Sitting; Cuff Location: Right Arm; Cuff Size: Small 2.16.840.1.37459 3.4.2 Weight 2004-01-29 16:16:00 45 [lb_av] 2.16.840.1.49929 3.4.2 Height 2004-01-29 16:16:00 45.5 [in_us] 2.16.840.1.63845 3.4.2 BMI 2004-01-29 16:16:00 15.28 kg/m2 2.16.840.1.90999 3.4.2 BMI Percentile 2004-01-29 16:16:00 50 % 2.16.840.1.63199 3.4.2 Head Circumference 2004-01-29 16:16:00 0.00 cm 2.16.840.1.29587 3.4.2 Temperature 2004-01-26 11:34:00 98.4 [degF] Method: Oral 2.16.840.1.14514 3.4.2 Pulse 2004-01-26 11:34:00 88 /min Pattern: Regular 2.16.840.1.53766 3.4.2 Respiration Rate 2004-01-26 11:34:00 12 /min Pattern: Unlabored 2.16.840.1.65070 3.4.2 Weight 2004-01-26 11:34:00 45 [lb_av] 2.16.840.1.68566 3.4.2 Height 2004-01-26 11:34:00 0 [in_us] 2.16.840.1.13646 3.4.2 Head Circumference 2004-01-26 11:34:00 0.00 cm 2.16.840.1.14072 3.4.2 Temperature 2002-08-04 14:46:00 98.8 [degF] Method: Oral 2.16.840.1.50397 3.4.2 Pulse 2002-08-04 14:46:00 92 /min Pattern: Regular 2.16.840.1.75576 3.4.2 Respiration Rate 2002-08-04 14:46:00 16 /min Pattern: Unlabored 2.16.840.1.22359 3.4.2 BP Systolic 2002-08-04 14:46:00 94 mm[Hg] Patient Position: Sitting; Cuff Location: Right Arm; Cuff Size: Small 2.16.840.1.67325 3.4.2 BP Diastolic 2002-08-04 14:46:00 60 mm[Hg] Patient Position: Sitting; Cuff Location: Right Arm; Cuff Size: Small 2.16.840.1.01585 3.4.2 Weight 2002-08-04 14:46:00 37 [lb_av] 2.16.840.1.73716 3.4.2 Height 2002-08-04 14:46:00 0 [in_us] 2.16.840.1.45092 3.4.2 Head Circumference 2002-08-04 14:46:00 0.00 cm 2.16.840.1.97998 3.4.2 Procedures Procedure Date / Time Performed Performing Clinician Source NOTICE OF PRIVACY PRACTICES 2023-04-02 07:25:40 Doctor Unassigned, [place] [facility] CONSENT/REFUSAL FOR DIAGNOSI S AND TREATMENT 2023-04-02 07:25:23 Doctor Unassigned, [place] [facility] NOTICE OF PRIVACY PRACTICES 2022-10-18 22:11:18 Doctor Unassigned, [place] [facility] CONSENT/REFUSAL FOR DIAGNOSI S AND TREATMENT 2022-10-18 22:10:55 Doctor Unassigned, [place] [facility] [id number] BEHAVIORAL COUNSELING FOR OBESITY (G0447) 2022-09-01 00:00:00 Debra Cutler 2.16.840.1.836708.4 .2 DOCUMENTATION OF FOLLOW-UP PLAN FOR PATIENT WITH BMI ABOVE NORMAL (G8417) 2022-09-01 00:00:00 Debra Cutler 2.16.840.1.201765.4 .2 PATIENT IDENTIFIED A TOBACCO USER RECEIVED TOBACCO CESSATION INTERVENTION (COUNSELING AND/OR PHARMACOTHERAPY) (G9906) 2022-09-01 00:00:00 Debra Cutler 2.16.840.1.339742.4 .2 No Known Past Surgical History 2022-09-01 00:00:00 Nellie Kenney 2.16.840.1.651437.4 .2 PATIENT SCREENED FOR TOBACCO USE AND IDENTIFIED A TOBACCO USER (G9902) 2022-09-01 00:00:00 Debra Cutler 2.16.840.1.954524.4 .2 SCREENING FOR TOBACCO USE (4004F) 2022-09-01 00:00:00 Debra Cutler 2.16.840.1.487402.4 .2 ADMINISTRATION OF DEPOT MEDROXYPROGESTERONE ACETATE 150 MG BY INJECTION (J1050) 2022-09-01 00:00:00 Debra Cutler 2.16.840.1.513947.4 .2 INCISION AND DRAINAGE, CYST, VAGINA (18900) 2022-08-25 00:00:00 Farrah Ortez 2.16.840.1.567413.4 .2 Pap Smear 2022-07-10 00:00:00 Nellie Kenney 2.16.840.1.580646.4 .2 Patient received annual dental check-up 2022-07-10 00:00:00 Nellie Kenney 2.16.840.1.057102.4 .2 THER/PROPH/DIAG INJ, SC/IM (30549) 2014-01-30 00:00:00 Jada Mistry 2.16.840.1.304186.4 .2 No Known Past Surgical History 2013-04-18 00:00:00 2.16.840.1.928229.4 .2 MEDICAL SERVICES AFTER POSTE D HOURS (72466) For all [facility] 2013-04-18 00:00:00 Francesco Shane 2.16.840.1.335814.4 .2 No Known Past Surgical History 2013-04-18 00:00:00 2.16.840.1.441403.4 .2 No Known Past Surgical History 2013-04-18 00:00:00 Kianna Potts 2.16.840.1.692791.4 .2 No Known Past Surgical History 2013-04-18 00:00:00 2.16.840.1.493171.4 .2 Annual Eye Exam Donavon Marissa 2.16.840.1.1 32982.4 .2 Flu Vaccine Donavon Marissa 2.16.840.1.1138 83.4 .2 Patient received annual dental check-up Marissa Raphael 2.16.840.1.993157.4 .2 Annual Eye Exam Kianna Potts 2.16.840.1.1 59352.4 .2 Pap Smear 2.16.840.1.1138 83.4 .2 Patient received annual dental check-up Kianna Potts 2.16.840.1.687797.4 .2 Pap Smear Kianna Potts 2.16.840.1.1138 83.4 .2 Annual Eye Exam 2.16.840.1.1 11058.4 .2 Flu Vaccine 2.16.840.1.1138 83.4 .2 Pap Smear 2.16.840.1.1138 83.4 .2 Patient received annual dental check-up 2.16.840.1.916946.4 .2 Annual Eye Exam Nellie Kenney 2.16.840.1. 649291.4 .2 Plan of Care Planned Activity Planned Date Details Comments Source Diagnostic Test Pending 2022-09-01 16:12:07 *Lucio estar urine (69944) [code = 07406] Diagnostic Test Pending 2022-09-01 16:12:07 *Lucio estar urine (35636) [code = 53616] Diagnostic Test Pending 2022-07-30 14:04:11 HEPA TITIS C ANTIBODY (25546) [code = 30637] Diagnostic Test Pending 2022-07-30 14:04:10 HEPA TITIS B SURFACE ANTIGEN (59230) [code = 72630] Diagnostic Test Pending 2022-07-30 14:04:10 HIV- 1 AG W/HIV-1 & HIV-2 AB (84862) [code = 80418] Diagnostic Test Pending 2022-07-30 14:04:10 HEPA TITIS B SURFACE ANTIGEN (24062) [code = 43331] Diagnostic Test Pending 2022-07-30 14:04:10 HEPA TITIS B SURFACE ANTIGEN (95738) [code = 02132] Diagnostic Test Pending 2022-07-30 14:04:10 HEPA TITIS B SURFACE ANTIGEN (78677) [code = 01404] Diagnostic Test Pending 2022-07-30 14:04:10 HEPA TITIS B SURFACE ANTIGEN (48637) [code = 46986] Diagnostic Test Pending 2022-07-30 14:04:10 HEPA TITIS B SURFACE ANTIGEN (81310) [code = 99672] Diagnostic Test Pending 2022-07-30 14:04:10 HEPA TITIS B SURFACE ANTIGEN (09574) [code = 17845] Diagnostic Test Pending 2022-07-30 14:04:10 HEPA TITIS B SURFACE ANTIGEN (59884) [code = 29295] Diagnostic Test Pending 2022-07-30 13:58:25 PAP with reflex HPV (24054) [code = 39429] Diagnostic Test Pending 2013-04-25 11:41:30 HERP ES SIMPLEX VIRUS (HSV) CULTURE AND TYPING (38360) [code = 48554] Diagnostic Test Pending 2013-04-25 11:41:30 HERP ES SIMPLEX VIRUS (HSV) CULTURE AND TYPING (03640) [code = 53612] Diagnostic Test Pending 2013-04-25 11:41:30 HERP ES SIMPLEX VIRUS (HSV) CULTURE AND TYPING (65049) [code = 36400] Diagnostic Test Pending 2013-04-25 11:41:30 HERP ES SIMPLEX VIRUS (HSV) CULTURE AND TYPING (84454) [code = 04240] Diagnostic Test Pending 2013-04-25 11:41:30 HERP ES SIMPLEX VIRUS (HSV) CULTURE AND TYPING (30875) [code = 79701] Diagnostic Test Pending 2013-04-25 11:41:30 HERP ES SIMPLEX VIRUS (HSV) CULTURE AND TYPING (75060) [code = 98903] Diagnostic Test Pending 2013-04-25 11:41:30 HERP ES SIMPLEX VIRUS (HSV) CULTURE AND TYPING (30357) [code = 12864] Diagnostic Test Pending 2013-04-25 11:41:30 HERP ES SIMPLEX VIRUS (HSV) CULTURE AND TYPING (26836) [code = 65598] Diagnostic Test Pending 2013-04-25 11:41:30 HERP ES SIMPLEX VIRUS (HSV) CULTURE AND TYPING (19450) [code = 87120] Diagnostic Test Pending 2013-04-25 11:41:30 HERP ES SIMPLEX VIRUS (HSV) CULTURE AND TYPING (32746) [code = 70236] Diagnostic Test Pending 2013-04-25 11:41:30 HERP ES SIMPLEX VIRUS (HSV) CULTURE AND TYPING (06740) [code = 58200] Encounters Start Date/Time End Date/Time Encounter Type Admission Type Attending [facility] Facility Care Department Encounter ID Source 2023-03-02 23:43:18 Outpatient LIV[facility] LIV[id number] 2022-08-30 13:43:17 Outpatient Eileen Hairston [facility] [id number] [facility] 2022-08-27 15:23:04 Outpatient Eileen Hairston [facility] [id number] [facility] 2022-08-26 14:17:10 Outpatient Eileen Hairston [facility] [id number] [facility] 2022-08-23 14:23:18 Outpatient [place] [facility] [id number] Bessie Snowden [facility] 2022-08-20 11:51:44 Outpatient Eileen Hairston [facility] [id number] Bessie Snowden [facility] 2022-07-04 08:27:07 Outpatient [facility] [id number] Bessie Snowden [facility] 2022-05-08 19:01:49 Outpatient [facility] [id number] [facility] 09:09:14 Outpatient [facility] [id number] [facility] 2020-03-24 22:22:00 Inpatient [facility] CHRIS [id number] [facility] 2020-03-10 18:15:00 Inpatient [facility]CAKW ERPD [id number] [facility] 2019-11-17 18:55:00 Inpatient [facility]W CHRIS [id number] [facility] 2023-04-02 02:37:00 2023-04-02 03:00:00 Emergency TANESHA SHIELDS [facility] ERT [id number] [facility] 2023-04-02 02:37:00 2023-04-02 03:00:00 Emergency Tanesha Cason [facility] [id number] [facility] 2023-01-25 21:06:00 2023-01-26 01:17:00 Emergency EM Francesco Shane HCAKW CHRIS [id number] [facility] 2022-10-20 15:45:00 2022-10-20 16:23:21 Outpatient JACLYN CARRERA [facility] [id number] [facility] 2022-10-20 15:45:00 2022-10-20 16:23:21 Office Visit Provider, Jose Martinp Jaclyn Bautista [facility] [employer] [facility] [place] [id number] [facility] 2022-10-18 16:22:00 2022-10-18 17:40:00 Emergency X Zander SAMANO [facility] ERT [id number] [facility] 2022-10-18 16:22:00 2022-10-18 17:40:00 Emergency Zander Samano Anabelle [facility] [id number] [id number] [id number] [facility] 2022-09-01 13:30:00 2022-09-01 16:59:41 Office Visit 0 [place] [id number] 2022-09-01 13:14:00 2022-09-01 13:14:00 Outpatient Eileen Hairston [facility] [id number] [facility] 2022-08-25 14:00:00 2022-08-29 14:29:49 Office Visit 0 [place] [id number] 2022-08-25 14:18:00 2022-08-25 14:18:00 Outpatient Eileen Hairston [facility] [id number] [facility] 2022-08-25 14:01:23 2022-08-25 14:01:23 Review 0 [place] [id number] 2022-07-30 13:45:00 2022-08-01 09:38:40 Office Visit 0 [place] [id number] 2022-07-30 13:41:00 2022-07-30 13:41:00 Outpatient [place] [facility] [id number] [facility] 2022-07-08 09:30:00 2022-07-08 13:11:13 Office Visit 0 [place] [id number] 2022-07-08 09:32:00 2022-07-08 09:32:00 Outpatient Eileen Hairston [facility] [id number] [facility] 2022-03-27 09:56:00 2022-03-27 09:56:00 Outpatient Eileen Hairston [facility] [id number] [facility] 2021-09-19 19:11:00 2021-09-19 19:55:00 Emergency EM Tong Hurtado [facility] [id number] 86 [facility] 2021-09-04 21:06:00 2021-09-04 22:40:00 Inpatient EM AcostaFrancesco [facility] [id number] 59 [facility] 2014-02-20 13:20:57 2014-02-22 16:11:47 Office Visit 0 [facility] [id number] 2014-01-30 14:02:18 2014-02-07 15:22:07 Office Visit 0 [facility] [id number] 2013-06-09 13:26:30 2013-06-09 13:39:38 Phone Encounter 0 [facility] [id number] 2013-04-25 10:36:54 2013-05-02 13:30:36 Office Visit 0 [facility] [id number] 2013-04-27 15:34:44 2013-04-27 15:48:36 Office Visit 0 [facility] [id number] 2013-04-18 17:19:14 2013-04-18 18:00:32 Office Visit 0 [facility] [id number] 2004-09-09 09:15:20 2004-09-09 11:13:36 Office Visit 0 [facility] [id number] 2004-01-29 16:16:35 2004-01-29 16:40:21 Office Visit 0 [facility] [id number] 2004-01-26 11:28:09 2004-01-26 11:51:16 Office Visit 0 [facility] [id number] 2002-08-04 14:45:40 2002-08-09 12:18:35 Office Visit 0 [facility] [id number] Results Test Description Test Time Test Comments Results Result Co mments Source BASIC METABOLIC [id number] 22:52:00* Test Item Value Reference Range Interpretation Comme nts SODIUM (test code = NA) 136 mmol/L 137-145 L POTASSIUM (test code = K) 3.2 mmol/L 3.4-5.0 L CHLORIDE (test code = CL) 103 mmol/L 98-107 N CARBON DIOXIDE (test code = CO2) 22 mmol/L 22-30 N ANION GAP (test code = GAP) 14 GLUCOSE (test code = GLU) 96 mg/dL 74-106 N BLOOD UREA NITROGEN (test code = BUN) 5 mg/dL 7-17 L GLOMERULAR FILTRATION RATE (test code = GFR) 91 mL/min The Glomerular Filtration Rate is a calculated parameterbased on serum Creatinine, patient age and sex. GFR valuesless than 60 mL/min/1.73 square meters are indicative ofChronic Kidney Disease. Values less than 15 mL/min/1.73square meters indicate Kidney failure. The calculation forGFR is based on the CKD-EPI (2020) calculation. This formulais race indifferent and is the recommended formula for GFRby the National Kidney Foundation for Adults.The GFR will not calculate if the sex is unknown or if thepatient's age is <18 years. CREATININE (test code = CREAT) 0.9 mg/dL 0.5-1.0 N CALCIUM (test code = CA) 9.2 mg/dL 8.4-10.2 N INDEX HEMOLYSIS (test code = HEMINDEX) 18 Index/DL 0-100 N LIVER FUNCTION [id number] 22:52:00* Test Item Value Reference Range Interpretation Comme nts TOTAL PROTEIN (test code = PROT) 7.7 g/dL 6.3-8.2 N "A positive bias may occur for patients taking Eltrombopag(a bone marrow stimulant used to treat thrombocytopenia andaplastic anemia)." ALBUMIN (test code = ALB) 4.5 g/dL 3.5-5.0 N BILIRUBIN TOTAL (test code = BILT) 0.8 mg/dL 0.2-1.3 N "A positive b ias may occur for patients taking Eltrombopag(a bone marrow stimulant used to treat thrombocytopenia andaplastic anemia)." BILIRUBIN CONJUGATED (test code = BILCON) 0 mg/dL 0-0.3 N "A positive bias may occur for patients taking Eltrombopag(a bone marrow stimulant used to treat thrombocytopenia andaplastic anemia)." CONJUGATED BILIRUBIN IS THE REPLACEMENT ASSAY FOR DIRECTBILIRUBIN. BILIRUBIN UNCONJUGATED (test code = BILUNC) 0.5 mg/dL 0-1.1 N SGOT/AST (test code = AST) 34 U/L 15-46 N SGPT/ALT (test code = ALT) 22 U/L 0-34 N ALKALINE PHOSPHATASE (test code = ALKP) 82 U/L 38-126 N HCG SERUM [id number] 22:52:00* Test Item Value Reference Range Interpretation Comme nts HCG SERUM QUAL (test code = HCGQL) NEGATIVE NEGATIVE [id number] 22:52:00* Test Item Value Reference Range Interpretation Comme nts ACETAMINOPHEN (test code = ACET) <10 ug/mL 10-30 L [id number] 22:52:00* Test Item Value Reference Range Interpretation Comme nts SALICYLATE (test code = CHARISSE) < 1.0 mg/dL Negative <2.0 mg/dLTherapeutic Range <20 mg/dL [id number] 22:52:00* Test Item Value Reference Range Interpretation Comme nts ALCOHOL (test code = ALC) < 10 mg/dL <10 ~~~~~~~~~~~~~~~~ ~~~~~~ ~~~~~~~~~~~~~~~~~~~~~~ ~~~~~~ RESULTS ARE TO BE USED FOR MEDICAL PURPOSES ONLY.FOR LEGAL PURPOSES THE SPECIMEN MUST BE COLLECTED BY A CHAINOF CUSTODY. LEGAL TESTING IS NOT PERFORMED BY THIS FACILITY. ~~~~~~~~~~~~~~~~~~~~~~ ~~~~~~~~~~~~~~~~~~~~~~ ~~~~~~ URINALYSIS [id number] 22:40:00* Test Item Value Reference Range Interpretation Comme nts UA COLOR (test code = COLU) Yellow Yellow UA APPEARANCE (test code = APPU) Cloudy Clear A UA GLUCOSE DIPSTICK (test code = DGLUU) Negative Negative UA BILIRUBIN DIPSTICK (test code = BILU) Negative Negative UA KETONE DIPSTICK (test code = KETU) Trace mg/dL Negative A UA SPECIFIC GRAVITY (test code = SGU) 1.004 <1.030 UA BLOOD DIPSTICK (test code = NILSA) 1+ Negative A UA PH DIPSTICK (test code = LOW) 6.0 5.0-8.0 UA PROTEIN DIPSTICK (test code = PROU) NEGATIVE mg/dL Negative UA UROBILINOGEN DIPSTICK (test code = URO) Negative mg/dL Negative UA NITRITE DIPSTICK (test code = CONSUELO) Negative Negative UA LEUKOCYTE ESTERASE DIPSTICK (test code = LEUU) TRACE Negative A UA WBC (test code = WBCU) 6-10 /HPF See_Comment A [Automated message] The system which generated this result transmitted reference range: <4-5. The reference range was not used to interpret this result as normal/abnormal. UA RBC (test code = RBCU) 6-10 /HPF See_Comment A [Automated message] The system which generated this result transmitted reference range: <4-5. The reference range was not used to interpret this result as normal/abnormal. UA BACTERIA (test code = BACU) Rare /HPF None-Rare UA SQUAMOUS CELLS (test code = SQU) 6-15 (FEW) /HPF See_Comment A [Automated message] The system which generated this result transmitted reference range: 0-5 (RARE). The reference range was not used to interpret this result as normal/abnormal. CBC W/AUTO [id number] 21:49:00* Test Item Value Reference Range Interpretation Comme nts WHITE BLOOD CELL (test code = WBC) 24.1 x10 3/uL 5.0-12.0 H RED BLOOD CELL (test code = RBC) 4.30 x10 6/uL 4.20-5.40 N HEMOGLOBIN (test code = HGB) 13.9 g/dL 12.0-16.0 N HEMATOCRIT (test code = HCT) 41.1 % 36.0-46.0 N MEAN CELL VOLUME (test code = MCV) 96 fL 81-99 N MEAN CELL HGB (test code = MCH) 32.3 pg 27-31 H MEAN CELL HGB CONCENTRATION (test code = MCHC) 33.8 g/dL 33-37 N RED CELL DISTRIBUTION WIDTH (test code = RDW) 12.2 % 11.5-15.5 N PLATELET COUNT (test code = PLT) 399 x10 3/uL 130-400 N MEAN PLATELET VOLUME (test code = MPV) 10.2 fL 9.4-16.4 N NEUTROPHIL % (test code = NT%) 85.2 % 43-65 H IMMATURE GRANULOCYTE % (test code = IG%) 0.6 % 0.0-2.0 N LYMPHOCYTE % (test code = LY%) 7.0 % 20.5-45.5 L MONOCYTE % (test code = MO%) 7.0 % 5.5-11.7 N EOSINOPHIL % (test code = EO%) 0.0 % 0.9-2.9 L BASOPHIL % (test code = BA%) 0.2 % 0.2-1.0 N NUCLEATED RBC % (test code = NRBC%) 0.0 % 0-1.0 N NEUTROPHIL # (test code = NT#) 20.54 x10 3/uL 2.2-4.8 H IMMATURE GRANULOCYTE # (test code = IG#) 0.15 x10 3/uL 0-0.03 H LYMPHOCYTE # (test code = LY#) 1.68 x10 3/uL 1.3-2.9 N MONOCYTE # (test code = MO#) 1.69 x10 3/uL 0.3-0.8 H EOSINOPHIL # (test code = EO#) 0.01 x10 3/uL 0.0-0.2 N BASOPHIL # (test code = BA#) 0.06 x10 3/uL 0.0-0.1 N *[facility] urine ([id number])2022-09-01 00:00:00* Test Item Value Reference Range Interpretation Comme nts *Lonestar urine (t est code = *Lonestar urine ) Negative N *[facility] urine ([id number])2022-09-01 00:00:00* Test Item Value Reference Range Interpretation Comme nts *Lonestar urine (t est code = *Lonestar urine ) Negative N *[facility]ar urine (63340)2022-09-01 00:00:00* Test Item Value Reference Range Interpretation Comme nts *Lonestar urine (t est code = *Lonestar urine ) Negative N HIV-1 AG W/HIV-1 & HIV-2 AB (89137)2022-07-31 00:00:00* Test Item Value Reference Range Interpretation Comme nts HIV AG/AB, 4TH GEN (test code = 85009-5) NON-REACTIVE N HIV-1 antigen an d HIV-1/HIV-2 antibodies were notdetected. There is no laboratory evidence of HIVinfection.PLEASE NOTE: This information has been disclosed toyou from records whose confidentiality may beprotected by state law. If your state requires suchprotection, then the state law prohibits you frommaking any further disclosure of the informationwithout the specific written consent of the personto whom it pertains, or as otherwise permitted by law.A general authorization for the release of medical orother information is NOT sufficient for this purpose.For additional information please refer tohttp://education.Luxola.Kopo Kopo/faq/AIS286(This link is being provided for informational/educational purposes only.)The performance of this assay has not been clinicallyvalidated in patients less than 2 years old.Test Performed at:[facility] [address] [address] FIDEL BRIGGS MD HEPATITIS C ANTIBODY ([id number])2022-07-31 00:00:00* Test Item Value Reference Range Interpretation Comme nts HEPATITIS C ANTIBODY (test code = 17164-8) NON-REACTIVE N INDEX (test code = 76180-3) 0.18 N HCV antibody was non-reactive. There is no laboratoryevidence of HCV infection.In most cases, no further action is required. However,if recent HCV exposure is suspected, a test for HCV RNA(test code 03246) is suggested.For additional information please refer tohttp://[employer].Xcovery/faq/FAQ22v 1(This link is being provided for informational/educational purposes only.)Test Performed at:[facility] [address] [address] FIDEL BRIGGS MD HIV-1 AG W/HIV-1 & HIV-2 AB (62989)2022-07-31 00:00:00* Test Item Value Reference Range Interpretation Comme nts HIV AG/AB, 4TH GEN (test code = 63852-7) NON-REACTIVE N HIV-1 antigen an d HIV-1/HIV-2 antibodies were notdetected. There is no laboratory evidence of HIVinfection.PLEASE NOTE: This information has been disclosed toyou from records whose confidentiality may beprotected by state law. If your state requires suchprotection, then the state law prohibits you frommaking any further disclosure of the informationwithout the specific written consent of the personto whom it pertains, or as otherwise permitted by law.A general authorization for the release of medical orother information is NOT sufficient for this purpose.For additional information please refer tohttp://education.SugarCRM/faq/HDC552(This link is being provided for informational/educational purposes only.)The performance of this assay has not been clinicallyvalidated in patients less than 2 years old.Test Performed at:[facility] [address] [address] FIDEL BRIGGS MD HEPATITIS C ANTIBODY (30154)2022-07-31 00:00:00* Test Item Value Reference Range Interpretation Comme nts HEPATITIS C ANTIBODY (test code = 70077-4) NON-REACTIVE N INDEX (test code = 00527-2) 0.18 N HCV antibody was non-reactive. There is no laboratoryevidence of HCV infection.In most cases, no further action is required. However,if recent HCV exposure is suspected, a test for HCV RNA(test code 83913) is suggested.For additional information please refer tohttp://education.Xcovery/faq/FAQ22v 1(This link is being provided for informational/educational purposes only.)Test Performed at:[facility] [address] [address] FIDEL BRIGGS MD HIV-1 AG W/HIV-1 & HIV-2 AB (50554)2022-07-31 00:00:00* Test Item Value Reference Range Interpretation Comme nts HIV AG/AB, 4TH GEN (test code = 12272-9) NON-REACTIVE N HIV-1 antigen an d HIV-1/HIV-2 antibodies were notdetected. There is no laboratory evidence of HIVinfection.PLEASE NOTE: This information has been disclosed toyou from records whose confidentiality may beprotected by state law. If your state requires suchprotection, then the state law prohibits you frommaking any further disclosure of the informationwithout the specific written consent of the personto whom it pertains, or as otherwise permitted by law.A general authorization for the release of medical orother information is NOT sufficient for this purpose.For additional information please refer tohttp://education.SugarCRM/faq/ZJX591(This link is being provided for informational/educational purposes only.)The performance of this assay has not been clinicallyvalidated in patients less than 2 years old.Test Performed at:[facility] [address] [address] FIDEL BRIGGS MD HEPATITIS C ANTIBODY (94388)2022-07-31 00:00:00* Test Item Value Reference Range Interpretation Comme nts HEPATITIS C ANTIBODY (test code = 61586-7) NON-REACTIVE N INDEX (test code = 26423-2) 0.18 N HCV antibody was non-reactive. There is no laboratoryevidence of HCV infection.In most cases, no further action is required. However,if recent HCV exposure is suspected, a test for HCV RNA(test code 97767) is suggested.For additional information please refer tohttp://education.Xcovery/faq/FAQ22v 1(This link is being provided for informational/educational purposes only.)Test Performed at:[facility] [address] [address] FIDEL BRIGGS MD HIV-1 AG W/HIV-1 & HIV-2 AB (39693)2022-07-31 00:00:00* Test Item Value Reference Range Interpretation Comme nts HIV AG/AB, 4TH GEN (test code = 20739-4) NON-REACTIVE N HIV-1 antigen an d HIV-1/HIV-2 antibodies were notdetected. There is no laboratory evidence of HIVinfection.PLEASE NOTE: This information has been disclosed toyou from records whose confidentiality may beprotected by state law. If your state requires suchprotection, then the state law prohibits you frommaking any further disclosure of the informationwithout the specific written consent of the personto whom it pertains, or as otherwise permitted by law.A general authorization for the release of medical orother information is NOT sufficient for this purpose.For additional information please refer tohttp://Idc917/faq/PNN923(This link is being provided for informational/educational purposes only.)The performance of this assay has not been clinicallyvalidated in patients less than 2 years old.Test Performed at:[facility] [address] [address] FIDEL BRIGGS MD HEPATITIS C ANTIBODY (69503)2022-07-31 00:00:00* Test Item Value Reference Range Interpretation Comme nts HEPATITIS C ANTIBODY (test code = 82245-4) NON-REACTIVE N INDEX (test code = 65496-6) 0.18 N HCV antibody was non-reactive. There is no laboratoryevidence of HCV infection.In most cases, no further action is required. However,if recent HCV exposure is suspected, a test for HCV RNA(test code 80200) is suggested.For additional information please refer tohttp://Legend3D/faq/FAQ22v 1(This link is being provided for informational/educational purposes only.)Test Performed at:[facility] [address] [address] FIDEL BRIGGS MD HIV-1 AG W/HIV-1 & HIV-2 AB (60192)2022-07-31 00:00:00* Test Item Value Reference Range Interpretation Comme nts HIV AG/AB, 4TH GEN (test code = 18158-3) NON-REACTIVE N HIV-1 antigen an d HIV-1/HIV-2 antibodies were notdetected. There is no laboratory evidence of HIVinfection.PLEASE NOTE: This information has been disclosed toyou from records whose confidentiality may beprotected by state law. If your state requires suchprotection, then the state law prohibits you frommaking any further disclosure of the informationwithout the specific written consent of the personto whom it pertains, or as otherwise permitted by law.A general authorization for the release of medical orother information is NOT sufficient for this purpose.For additional information please refer tohttp://[employer].Kopo Kopo/faq/JVA211(This link is being provided for informational/educational purposes only.)The performance of this assay has not been clinicallyvalidated in patients less than 2 years old.Test Performed at:[facility] [address] [address] FIDEL BRIGGS MD HEPATITIS C ANTIBODY (62457)2022-07-31 00:00:00* Test Item Value Reference Range Interpretation Comme nts HEPATITIS C ANTIBODY (test code = 88177-9) NON-REACTIVE N INDEX (test code = 97603-9) 0.18 N HCV antibody was non-reactive. There is no laboratoryevidence of HCV infection.In most cases, no further action is required. However,if recent HCV exposure is suspected, a test for HCV RNA(test code 89483) is suggested.For additional information please refer tohttp://[employer].Xcovery/faq/FAQ22v 1(This link is being provided for informational/educational purposes only.)Test Performed at:[facility] [address] [address] FIDEL BRIGGS MD HIV-1 AG W/HIV-1 & HIV-2 AB (75260)2022-07-31 00:00:00* Test Item Value Reference Range Interpretation Comme nts HIV AG/AB, 4TH GEN (test code = 49180-5) NON-REACTIVE N HIV-1 antigen an d HIV-1/HIV-2 antibodies were notdetected. There is no laboratory evidence of HIVinfection.PLEASE NOTE: This information has been disclosed toyou from records whose confidentiality may beprotected by state law. If your state requires suchprotection, then the state law prohibits you frommaking any further disclosure of the informationwithout the specific written consent of the personto whom it pertains, or as otherwise permitted by law.A general authorization for the release of medical orother information is NOT sufficient for this purpose.For additional information please refer tohttp://[employer].SugarCRM/faq/GJX707(This link is being provided for informational/educational purposes only.)The performance of this assay has not been clinicallyvalidated in patients less than 2 years old.Test Performed at:[facility] [address] [address] FIDEL BRIGGS MD HEPATITIS C ANTIBODY (11377)2022-07-31 00:00:00* Test Item Value Reference Range Interpretation Comme nts HEPATITIS C ANTIBODY (test code = 83103-9) NON-REACTIVE N INDEX (test code = 72857-4) 0.18 N HCV antibody was non-reactive. There is no laboratoryevidence of HCV infection.In most cases, no further action is required. However,if recent HCV exposure is suspected, a test for HCV RNA(test code 28621) is suggested.For additional information please refer tohttp://[employer].Xcovery/faq/FAQ22v 1(This link is being provided for informational/educational purposes only.)Test Performed at:[facility] [address] [address] FIDEL BRIGGS MD HIV-1 AG W/HIV-1 & HIV-2 AB (24665)2022-07-31 00:00:00* Test Item Value Reference Range Interpretation Comme nts HIV AG/AB, 4TH GEN (test code = 51635-2) NON-REACTIVE N HIV-1 antigen an d HIV-1/HIV-2 antibodies were notdetected. There is no laboratory evidence of HIVinfection.PLEASE NOTE: This information has been disclosed toyou from records whose confidentiality may beprotected by state law. If your state requires suchprotection, then the state law prohibits you frommaking any further disclosure of the informationwithout the specific written consent of the personto whom it pertains, or as otherwise permitted by law.A general authorization for the release of medical orother information is NOT sufficient for this purpose.For additional information please refer tohttp://education.SugarCRM/faq/QNZ469(This link is being provided for informational/educational purposes only.)The performance of this assay has not been clinicallyvalidated in patients less than 2 years old.Test Performed at:[facility] [id number] [place] [address] FIDEL BRIGGS MD HEPATITIS C ANTIBODY (25788)2022-07-31 00:00:00* Test Item Value Reference Range Interpretation Comme nts HEPATITIS C ANTIBODY (test code = 29407-3) NON-REACTIVE N INDEX (test code = 12918-9) 0.18 N HCV antibody was non-reactive. There is no laboratoryevidence of HCV infection.In most cases, no further action is required. However,if recent HCV exposure is suspected, a test for HCV RNA(test code 85213) is suggested.For additional information please refer tohttp://education.Xcovery/faq/FAQ22v 1(This link is being provided for informational/educational purposes only.)Test Performed at:[facility] [id number] [place] [address] FIDEL BRIGGS MD Chlamydia/GC Amplification(APTIMA SWAB) (69760)2022-07-30 00:00:00* Test Item Value Reference Range Interpretation Comme nts CHLAMYDIA TRACHOMATIS RNA, TMA, UROGENITAL (test code = 70568-7) NOT DETECTED N NEISSERIA GONORRHOEAE RNA, TMA, UROGENITAL (test code = 44880-3) NOT DETECTED N [id number] (test code = 79881590) SEE NOTE N The analytical performance characteristics of thisassay, when used to test SurePath(TM) specimens have beendetermined by [facility]. The modifications havenot been cleared or approved by the FDA. This assay hasbeen validated pursuant to the CLIA regulations and isused for clinical purposes.For additional information, please refer tohttps://Backchat/faq /DET993(This link is being provided for information/educationa l purposes only.)Test Performed at:[facility] [address] [address] FIDEL BRIGGS MD Chlamydia/GC Amplification(APTIMA SWAB) (37724)2022-07-30 00:00:00* Test Item Value Reference Range Interpretation Comme nts CHLAMYDIA TRACHOMATIS RNA, TMA, UROGENITAL (test code = 75073-5) NOT DETECTED N NEISSERIA GONORRHOEAE RNA, TMA, UROGENITAL (test code = 57595-8) NOT DETECTED N 18513103 (test code = 06851392) SEE NOTE N The analytical performance characteristics of thisassay, when used to test SurePath(TM) specimens have beendetermined by [facility]. The modifications havenot been cleared or approved by the FDA. This assay hasbeen validated pursuant to the CLIA regulations and isused for clinical purposes.For additional information, please refer tohttps://educationIntune Networks/faq /YJM778(This link is being provided for information/educationa l purposes only.)Test Performed at:[facility] [id number] [place] [address] FIDEL BRIGGS MD PAP with reflex HPV (45583)2022-07-30 00:00:00* Test Item Value Reference Range Interpretation Comme nts CLINICAL INFORMATION: (test code = 70598-5) SEE NOTE N None given LMP: (test code = 8665-2) SEE NOTE N [id number] PREV. PAP: (test code = 49324-7) SEE NOTE N NONE GIVEN PREV. BX: (test code = 58034-4) SEE NOTE N NGC SOURCE: (test code = 53192-1) SEE NOTE N CERVIX STATEMENT OF ADEQUACY: (test code = 43664-3) SEE NOTE N Satisfactory for evaluation.Endocervical/tr ansformation zone componentpresent. INTERPRETATION/RESU LT: (test code = 69502-0) SEE NOTE N Negative for intraepithelial lesion or malignancy. COMMENT: (test code = 38057-0) SEE NOTE N This Pap test berg s been evaluated with computerassisted technology. ADJUSTER AND INSPECTOR: (test code = 62848-8) SEE NOTE N MPG, CT(ASCP) 68365753 (test code = 40745744) SEE NOTE N EXPLANATORY NOTE :The Pap is a screening test for cervical cancer. It isnot a diagnostic test and is subject to false negativeand false positive results. It is most reliable when asatisfactory sample, regularly obtained, is submittedwith relevant clinical findings and history, and whenthe Pap result is evaluated along with historic andcurrent clinical information.Test Performed at:[id number] [place] [address] FIDEL BRIGGS MD Chlamydia/GC Amplification(APTIMA SWAB) (73531)2022-07-30 00:00:00* Test Item Value Reference Range Interpretation Comme nts CHLAMYDIA TRACHOMATIS RNA, TMA, UROGENITAL (test code = 80103-9) NOT DETECTED N NEISSERIA GONORRHOEAE RNA, TMA, UROGENITAL (test code = 25848-3) NOT DETECTED N [id number] (test code = 84088130) SEE NOTE N The analytical performance characteristics of thisassay, when used to test SurePath(TM) specimens have beendetermined by [facility]. The modifications havenot been cleared or approved by the FDA. This assay hasbeen validated pursuant to the CLIA regulations and isused for clinical purposes.For additional information, please refer tohttps://education.SeeWhy.Kopo Kopo/faq /IJU304(This link is being provided for information/educationa l purposes only.)Test Performed at:[facility] [id number] [place] [address] FIDEL BRIGGS MD PAP with reflex HPV (15355)2022-07-30 00:00:00* Test Item Value Reference Range Interpretation Comme nts CLINICAL INFORMATION: (test code = 56671-9) SEE NOTE N None given LMP: (test code = 8665-2) SEE NOTE N [id number] PREV. PAP: (test code = 04252-8) SEE NOTE N NONE GIVEN PREV. BX: (test code = 91879-6) SEE NOTE N NGC SOURCE: (test code = 13667-4) SEE NOTE N CERVIX STATEMENT OF ADEQUACY: (test code = 64538-5) SEE NOTE N Satisfactory for evaluation.Endocervical/tr ansformation zone componentpresent. INTERPRETATION/RESU LT: (test code = 42006-2) SEE NOTE N Negative for intraepithelial lesion or malignancy. COMMENT: (test code = 05813-5) SEE NOTE N This Pap test berg s been evaluated with computerassisted technology. ADJUSTER AND INSPECTOR: (test code = 26775-8) SEE NOTE N MPG, CT(ASCP) 98534492 (test code = 13365205) SEE NOTE N EXPLANATORY NOTE :The Pap is a screening test for cervical cancer. It isnot a diagnostic test and is subject to false negativeand false positive results. It is most reliable when asatisfactory sample, regularly obtained, is submittedwith relevant clinical findings and history, and whenthe Pap result is evaluated along with historic andcurrent clinical information.Test Performed at:[facility] [facility] [place] [place] [address] FIDEL BRIGGS MD Chlamydia/GC Amplification(APTIMA SWAB) (89793)2022-07-30 00:00:00* Test Item Value Reference Range Interpretation Comme nts CHLAMYDIA TRACHOMATIS RNA, TMA, UROGENITAL (test code = 65019-7) NOT DETECTED N NEISSERIA GONORRHOEAE RNA, TMA, UROGENITAL (test code = 12719-1) NOT DETECTED N [id number] (test code = 43908247) SEE NOTE N The analytical performance characteristics of thisassay, when used to test SurePath(TM) specimens have beendetermined by [facility]. The modifications havenot been cleared or approved by the FDA. This assay hasbeen validated pursuant to the CLIA regulations and isused for clinical purposes.For additional information, please refer tohttps://education.SeeWhy.Kopo Kopo/faq /[email or web address](This link is being provided for information/educationa l purposes only.)Test Performed at:[facility] [id number] [place] [address] FIDEL BRIGGS MD PAP with reflex HPV (74239)2022-07-30 00:00:00* Test Item Value Reference Range Interpretation Comme nts CLINICAL INFORMATION: (test code = 77594-9) SEE NOTE N None given LMP: (test code = 8665-2) SEE NOTE N [id number] PREV. PAP: (test code = 89239-6) SEE NOTE N NONE GIVEN PREV. BX: (test code = 89545-8) SEE NOTE N [facility]OSPITAL SOURCE: (test code = ) SEE NOTE N CERVIX STATEMENT OF ADEQUACY: (test code = 41888-1) SEE NOTE N Satisfactory for evaluation.Endocervical/tr ansformation zone componentpresent. INTERPRETATION/RESU LT: (test code = 15777-5) SEE NOTE N Negative for intraepithelial lesion or malignancy. COMMENT: (test code = ) SEE NOTE N This Pap test berg s been evaluated with computerassisted technology. ADJUSTER AND INSPECTOR: (test code = ) SEE NOTE N MPG, CT(ASCP) 15974899 (test code = 51637377) SEE NOTE N EXPLANATORY NOTE :The Pap is a screening test for cervical cancer. It isnot a diagnostic test and is subject to false negativeand false positive results. It is most reliable when asatisfactory sample, regularly obtained, is submittedwith relevant clinical findings and history, and whenthe Pap result is evaluated along with historic andcurrent clinical information.Test Performed at:[facility] [place] [address] FIDEL BRIGGS MD Chlamydia/GC Amplification(APTIMA SWAB) (27699)2022-07-30 00:00:00* Test Item Value Reference Range Interpretation Comme nts CHLAMYDIA TRACHOMATIS RNA, TMA, UROGENITAL (test code = 48786-8) NOT DETECTED N NEISSERIA GONORRHOEAE RNA, TMA, UROGENITAL (test code = 68165-3) NOT DETECTED N 07534580 (test code = 41925244) SEE NOTE N The analytical performance characteristics of thisassay, when used to test SurePath(TM) specimens have beendetermined by [facility]. The modifications havenot been cleared or approved by the FDA. This assay hasbeen validated pursuant to the CLIA regulations and isused for clinical purposes.For additional information, please refer totps://education.Roses [employer] Rye/faq /CSJ636(This link is being provided for information/educationa l purposes only.)Test Performed at:[facility] [address]XR[address] [place] [address] FIDEL BRIGGS MD PAP with reflex HPV (29430)2022-07-30 00:00:00* Test Item Value Reference Range Interpretation Comme nts CLINICAL INFORMATION: (test code = 07991-0) SEE NOTE N None given LMP: (test code = 8665-2) SEE NOTE N [id number] PREV. PAP: (test code = 67580-2) SEE NOTE N NONE GIVEN PREV. BX: (test code = 93271-3) SEE NOTE N [facility]ICAL [facility]ESS [facility]PITAL SOURCE: (test code = 79109-5) SEE NOTE N CERVIX STATEMENT OF ADEQUACY: (test code = 05907-3) SEE NOTE N Satisfactory for evaluation.Endocervical/tr ansformation zone componentpresent. INTERPRETATION/RESU LT: (test code = 68538-3) SEE NOTE N Negative for intraepithelial lesion or malignancy. COMMENT: (test code = 81731-8) SEE NOTE N This Pap test berg s been evaluated with computerassisted technology. ADJUSTER AND INSPECTOR: (test code = 13606-2) SEE NOTE N MPG, CT(ASCP) 57055317 (test code = 56888169) SEE NOTE N EXPLANATORY NOTE :The Pap is a screening test for cervical cancer. It isnot a diagnostic test and is subject to false negativeand false positive results. It is most reliable when asatisfactory sample, regularly obtained, is submittedwith relevant clinical findings and history, and whenthe Pap result is evaluated along with historic andcurrent clinical information.Test Performed at:[facility] [place] [address] FIDEL BRIGGS MD Chlamydia/GC Amplification(APTIMA SWAB) (82719)2022-07-30 00:00:00* Test Item Value Reference Range Interpretation Comme nts CHLAMYDIA TRACHOMATIS RNA, TMA, UROGENITAL (test code = 92442-4) NOT DETECTED N NEISSERIA GONORRHOEAE RNA, TMA, UROGENITAL (test code = 52495-4) NOT DETECTED N 86144550 (test code = 38470902) SEE NOTE N The analytical performance characteristics of thisassay, when used to test SurePath(TM) specimens have beendetermined by [facility]. The modifications havenot been cleared or approved by the FDA. This assay hasbeen validated pursuant to the CLIA regulations and isused for clinical purposes.For additional information, please refer tohttps://education.Roses [employer] Rye/faq /FXH645(This link is being provided for information/educationa l purposes only.)Test Performed at:[facility] [id number] [place] [address] FIDEL BRIGGS MD PAP with reflex HPV (15563)2022-07-30 00:00:00* Test Item Value Reference Range Interpretation Comme nts CLINICAL INFORMATION: (test code = 08656-4) SEE NOTE N None given LMP: (test code = 8665-2) SEE NOTE N [id number] PREV. PAP: (test code = 77115-3) SEE NOTE N NONE GIVEN PREV. BX: (test code = 81515-3) SEE NOTE N [facility]ICAL [facility]ESS [facility]OSPITAL SOURCE: (test code = 70514-7) SEE NOTE N CERVIX STATEMENT OF ADEQUACY: (test code = 78100-7) SEE NOTE N Satisfactory for evaluation.Endocervical/tr ansformation zone componentpresent. INTERPRETATION/RESU LT: (test code = 49500-1) SEE NOTE N Negative for intraepithelial lesion or malignancy. COMMENT: (test code = 07188-8) SEE NOTE N This Pap test berg s been evaluated with computerassisted technology. ADJUSTER AND INSPECTOR: (test code = 58195-4) SEE NOTE N MPG, CT(ASCP) 47710533 (test code = 56517191) SEE NOTE N EXPLANATORY NOTE :The Pap is a screening test for cervical cancer. It isnot a diagnostic test and is subject to false negativeand false positive results. It is most reliable when asatisfactory sample, regularly obtained, is submittedwith relevant clinical findings and history, and whenthe Pap result is evaluated along with historic andcurrent clinical information.Test Performed at:[facility]IFX[address] [place] [address] FIDEL BRIGGS MD Chlamydia/GC Amplification(APTIMA SWAB) (65827)2022-07-30 00:00:00* Test Item Value Reference Range Interpretation Comme nts CHLAMYDIA TRACHOMATIS RNA, TMA, UROGENITAL (test code = 88087-2) NOT DETECTED N NEISSERIA GONORRHOEAE RNA, TMA, UROGENITAL (test code = 11036-7) NOT DETECTED N 64188497 (test code = 24876516) SEE NOTE N The analytical performance characteristics of thisassay, when used to test SurePath(TM) specimens have beendetermined by [facility]. The modifications havenot been cleared or approved by the FDA. This assay hasbeen validated pursuant to the CLIA regulations and isused for clinical purposes.For additional information, please refer totps://education.Roses [employer] Rye/faq /VTM135(This link is being provided for information/educationa l purposes only.)Test Performed at:[facility] [id number] [place] [address] FIDEL BRIGGS MD PAP with reflex HPV (61506)2022-07-30 00:00:00* Test Item Value Reference Range Interpretation Comme nts CLINICAL INFORMATION: (test code = 31205-0) SEE NOTE N None given LMP: (test code = 8665-2) SEE NOTE N [id number] PREV. PAP: (test code = 51802-0) SEE NOTE N NONE GIVEN PREV. BX: (test code = 80204-9) SEE NOTE N NGC SOURCE: (test code = 11072-0) SEE NOTE N CERVIX STATEMENT OF ADEQUACY: (test code = 27054-3) SEE NOTE N Satisfactory for evaluation.Endocervical/tr ansformation zone componentpresent. INTERPRETATION/RESU LT: (test code = 40707-4) SEE NOTE N Negative for intraepithelial lesion or malignancy. COMMENT: (test code = 74715-7) SEE NOTE N This Pap test berg s been evaluated with computerassisted technology. ADJUSTER AND INSPECTOR: (test code = 51346-1) SEE NOTE N MPG, CT(ASCP) 37983652 (test code = 09998031) SEE NOTE N EXPLANATORY NOTE :The Pap is a screening test for cervical cancer. It isnot a diagnostic test and is subject to false negativeand false positive results. It is most reliable when asatisfactory sample, regularly obtained, is submittedwith relevant clinical findings and history, and whenthe Pap result is evaluated along with historic andcurrent clinical information.Test Performed at:[facility] [place] [address] FIDEL BRIGGS MD Chlamydia/GC Amplification(APTIMA SWAB) (11626)2022-07-30 00:00:00* Test Item Value Reference Range Interpretation Comme nts CHLAMYDIA TRACHOMATIS RNA, TMA, UROGENITAL (test code = 44802-3) NOT DETECTED N NEISSERIA GONORRHOEAE RNA, TMA, UROGENITAL (test code = 36715-1) NOT DETECTED N 37273620 (test code = 34907396) SEE NOTE N The analytical performance characteristics of thisassay, when used to test SurePath(TM) specimens have beendetermined by [facility]. The modifications havenot been cleared or approved by the FDA. This assay hasbeen validated pursuant to the CLIA regulations and isused for clinical purposes.For additional information, please refer tohttps://education.SeeWhy.Kopo Kopo/faq /OCL786(This link is being provided for information/educationa l purposes only.)Test Performed at:[facility] [id number] [place] [address] FIDEL BRIGGS MD PAP with reflex HPV (20259)2022-07-30 00:00:00* Test Item Value Reference Range Interpretation Comme nts CLINICAL INFORMATION: (test code = 61535-6) SEE NOTE N None given LMP: (test code = 8665-2) SEE NOTE N [id number] PREV. PAP: (test code = 64624-0) SEE NOTE N NONE GIVEN PREV. BX: (test code = 30714-0) SEE NOTE N NGC SOURCE: (test code = 30818-8) SEE NOTE N CERVIX STATEMENT OF ADEQUACY: (test code = 97477-0) SEE NOTE N Satisfactory for evaluation.Endocervical/tr ansformation zone componentpresent. INTERPRETATION/RESU LT: (test code = 00231-3) SEE NOTE N Negative for intraepithelial lesion or malignancy. COMMENT: (test code = ) SEE NOTE N This Pap test berg s been evaluated with computerassisted technology. ADJUSTER AND INSPECTOR: (test code = 78710-4) SEE NOTE N MPG, CT(ASCP) 65458636 (test code = 46633878) SEE NOTE N EXPLANATORY NOTE :The Pap is a screening test for cervical cancer. It isnot a diagnostic test and is subject to false negativeand false positive results. It is most reliable when asatisfactory sample, regularly obtained, is submittedwith relevant clinical findings and history, and whenthe Pap result is evaluated along with historic andcurrent clinical information.Test Performed at:[facility] [facility] [address] FIDEL BRIGGS MD UA RFLX MICR CULT IF [id number] 22:32:00* Test Item Value Reference Range Interpretation Comme nts UA COLOR (test code = COLU) Yellow Yellow UA APPEARANCE (test code = APPU) Cloudy Clear A UA GLUCOSE DIPSTICK (test code = DGLUU) Negative MG/DL Negative UA BILIRUBIN DIPSTICK (test code = BILU) Negative Negative UA KETONE DIPSTICK (test code = KETU) Trace mg/dL Negative A UA SPECIFIC GRAVITY (test code = SGU) 1.030 <1.030 UA BLOOD DIPSTICK (test code = NILSA) 1+ Negative A UA PH DIPSTICK (test code = LOW) 5.0 5.0-8.0 UA PROTEIN DIPSTICK (test code = PROU) NEGATIVE mg/dL Negative UA UROBILINOGEN DIPSTICK (test code = URO) 2.0 mg/dL Negative A [Automated message] The system which generated this result transmitted reference range: <=1.0. The reference range was not used to interpret this result as normal/abnormal. UA NITRITE DIPSTICK (test code = CONSUELO) Negative Negative UA LEUKOCYTE ESTERASE DIPSTICK (test code = LEUU) 2+ Negative A UA WBC (test code = WBCUR) 6-10 /HPF See_Comment A <10 WBC/HPF = PYURIA ABSENT URINE CULTURE NOT INDICATED [Automated message] The system which generated this result transmitted reference range: <4-5. The reference range was not used to interpret this result as normal/abnormal. UA RBC (test code = RBCU) 0-3 /HPF See_Comment [Automated message] The system which generated this result transmitted reference range: <4-5. The reference range was not used to interpret this result as normal/abnormal. UA BACTERIA (test code = BACU) Rare /HPF None-Rare UA SQUAMOUS CELLS (test code = SQU) 6-15 (FEW) /HPF See_Comment A [Automated message] The system which generated this result transmitted reference range: 0-5 (RARE). The reference range was not used to interpret this result as normal/abnormal. UA MUCUS (test code = MUCU) Rare /LPF See_Comment A [Automated message] The system which generated this result transmitted reference range: <Rare. The reference range was not used to interpret this result as normal/abnormal. Indication for culture: Dysuria/FrequencySOURCE OF URINE: CLEAN CATCHUR HCG QUAL 2021-09-04 22:32:00* Test Item Value Reference Range Interpretation Comme nts UR HCG QUAL (test code = HCGQLU) NEGATIVE NEGATIVE Indication for culture: Dysuria/FrequencySOURCE OF URINE: CLEAN CATCH- XR FOOT 3 + V [id number] 20:13:00FAX: Danae Cookhomer Sharp [phone] [place]: St: REG Name: TRISHA CUADRA [facility] : 1995 Age/S: 24/F [address] Unit #: [id number] Loc: [place] [address] Phys: Danae Cookhomer Sharp DO Acct: [id number] Dis Date: Status: REG ER PHONE #: Exam Date: 03/10/2020 359 FAX#: Reason: right foot injury, eval for foreign body, r/o f EXAMS: CPT CODE: [id number] XR FOOT 3 + V RT 70598 - XR FOOT 3 + V RT, 03/10/2020 6:37 PM Reason For Examination: right foot injury, eval forforeign body, r/o fx Comparison: None available Location: R16: Findings: No evidence of acute fracture or dislocation. There is a punctate density seen within the soft tissues at the tip of the 2nd digit possibly reflective of foreign body, otherwise no definite plain film evidence of radiopaque foreign body is visualized Impression: No evidence of acute fracture or dislocation. There is a punctate density seen within the soft tissues at the tip of the 2nd digit possibly reflective of foreign body, otherwise no definite plain film evidence of radiopaque foreign body is visualized at 2013 Reported and signed by: Poly Duff MD CC: Pita Cook DO Technologist: ROBERTO VILLATORO Date/Time/By: 2019 (2012) : By: [email or web address] PAGE 1 Signed Report FAX: Pita Cook D [phone] [place]: St: REG -- Name: TRISHA CUADRA [facility] : 1995 Age/S: 24/F [address] Unit #: [id number] Loc: [place] [address] Phys: Pita Cook DO Acct: [id number] Dis Date: Status: REG ER PHONE #: Exam Date: 03/10/20201919 FAX #: Reason: right foot injury, eval for foreign body, r/o f EXAMS: CPT CODE: [id number] XR FOOT 3 + V RT 21297 <Continued> Orig Print D/T: S: 03/10/2020 (2017) PAGE 2 Signed ReportBASIC METABOLIC [id number] 19:29:00* Test Item Value Reference Range Interpretation Comme nts SODIUM (test code = NA) 135 mmol/L 137-145 L POTASSIUM (test code = K) 4.3 mmol/L 3.4-5.0 N CHLORIDE (test code = CL) 101 mmol/L 98-107 N CARBON DIOXIDE (test code = CO2) 23 mmol/L 22-30 N GLUCOSE (test code = GLU) 107 mg/dL 74-106 H BLOOD UREA NITROGEN (test code = BUN) 16 mg/dL 7-17 N GLOMERULAR FILTRATION RATE (test code = GFR) 60 >60 The estimated glomerular filtration rate is computed usingpatient race, age (>18), sex, and serum creatinine. If anyof the needed data elements are missing the Laboratory cannot compute an estimation of the glomerular filtration rate. CREATININE (test code = CREAT) 1.2 mg/dL 0.5-1.0 H CALCIUM (test code = CA) 9.8 mg/dL 8.4-10.2 N C REACTIVE [id number] 19:29:00* Test Item Value Reference Range Interpretation Comme nts C REACTIVE PROTEIN (test cod e = CRP) 22.2 mg/L 0-9 H BASIC METABOLIC [id number] 19:28:00* Test Item Value Reference Range Interpretation Comme nts SODIUM (test code = NA) 135 mmol/L 137-145 L POTASSIUM (test code = K) 4.3 mmol/L 3.4-5.0 N CHLORIDE (test code = CL) 101 mmol/L 98-107 N CARBON DIOXIDE (test code = CO2) 23 mmol/L 22-30 N GLUCOSE (test code = GLU) 107 mg/dL 74-106 H BLOOD UREA NITROGEN (test code = BUN) 16 mg/dL 7-17 N GLOMERULAR FILTRATION RATE (test code = GFR) 60 >60 The estimated glomerular filtration rate is computed usingpatient race, age (>18), sex, and serum creatinine. If anyof the needed data elements are missing the Laboratory cannot compute an estimation of the glomerular filtration rate. CREATININE (test code = CREAT) 1.2 mg/dL 0.5-1.0 H CALCIUM (test code = CA) 9.8 mg/dL 8.4-10.2 N C REACTIVE [id number] 19:28:00* Test Item Value Reference Range Interpretation Comme nts C REACTIVE PROTEIN (test code = CRP) mg/L 0-9 CBC W/AUTO [id number] 19:14:00* Test Item Value Reference Range Interpretation Comme nts WHITE BLOOD CELL (test code = WBC) 18.8 x10 3/uL 5.0-12.0 H RED BLOOD CELL (test code = RBC) 4.81 x10 6/uL 4.20-5.40 N HEMOGLOBIN (test code = HGB) 13.7 g/dL 12.0-16.0 N HEMATOCRIT (test code = HCT) 41.9 % 36.0-46.0 N MEAN CELL VOLUME (test code = MCV) 87 fL 81-99 N MEAN CELL HGB (test code = MCH) 28.5 pg 27-31 N MEAN CELL HGB CONCENTRATION (test code = MCHC) 32.7 g/dL 33-37 L RED CELL DISTRIBUTION WIDTH (test code = RDW) 14.6 % 11.5-15.5 N PLATELET COUNT (test code = PLT) 406 x10 3/uL 130-400 H MEAN PLATELET VOLUME (test code = MPV) 9.6 fL 9.4-16.4 N NEUTROPHIL % (test code = NT%) 74.8 % 43-65 H IMMATURE GRANULOCYTE % (test code = IG%) 0.4 % 0.0-2.0 N LYMPHOCYTE % (test code = LY%) 13.4 % 20.5-45.5 L MONOCYTE % (test code = MO%) 8.6 % 5.5-11.7 N EOSINOPHIL % (test code = EO%) 2.3 % 0.9-2.9 N BASOPHIL % (test code = BA%) 0.5 % 0.2-1.0 N NUCLEATED RBC % (test code = NRBC%) 0.0 % 0-1.0 N NEUTROPHIL # (test code = NT#) 14.07 x10 3/uL 2.2-4.8 H IMMATURE GRANULOCYTE # (test code = IG#) 0.08 x10 3/uL 0-0.03 H LYMPHOCYTE # (test code = LY#) 2.51 x10 3/uL 1.3-2.9 N MONOCYTE # (test code = MO#) 1.61 x10 3/uL 0.3-0.8 H EOSINOPHIL # (test code = EO#) 0.43 x10 3/uL 0.0-0.2 H BASOPHIL # (test code = BA#) 0.09 x10 3/uL 0.0-0.1 N - [place] [facility] UNI [id number] 17:39:00FAX: Adrianna Crawford [phone] [place]: St: REG FAX: [place] [phone] Name: TRISHA CUADRA [facility] : 1995 Age/S: 24/F [address] Unit #: [id number] Loc: [place] [address] Phys: Adrianna Kurtz ANODISER Acct: [id number] Dis Date: Status: REG ER PHONE #: [phone] Exam Date: 11/05/2019 1725 FAX #: [phone] Reason: R/O ABSCESS OF BREAST EXAMS: CPT CODE: [id number] Surround App [facility] [place] [address] Location: EXAM: RIGHT BREAST ULTRASOUND, LIMITED HISTORY: Breast abscess COMPARISON: None TECHNIQUE: Targeted sonogram of the right breast is obtained. FINDINGS: In the retroareolar region, there is an irregular hypoechoic fluid collection compatib le with acute breast abscess measuring 4.6 x 3.4 x 5.5 cm. There is surrounding hypervascularity. There is overlying skin thickening and edema. This corresponds to the palpable abnormality which is tender during scanning. IMPRESSION: 4.6 x 3.4 x 5.5 cm retroareolar right breast abscess. RECOMMENDATIONS: Suggest initial antibiotic treatment. Follow-up right breast imaging Center at 5-7 days. Ultra sound-guided aspiration/drainage is sizable abscess persists. * A negative breast imaging report should not delay biopsy if a clinically suspicious mass is present. * The patient was provided with a copy of this report in lay terminology. FOR INTERNAL CODING PURPOSES ONLY RESULT CODE: 3 FOLLOW UP: F3 at 1739 Reported and signed by: Angelica Burr MD PAGE 1 Signed Report (CONTINUED) FAX: Adrianna Crawfrod [phone] [place]: St: REG FAX: [place] [phone] Name: TRISHA CUADRA [facility] : 1995 Age/S: 24/F [address] Unit #: [id number] Loc: [place] [address] Phys: Adrianna Kurtz NP Acct: [id number] Dis Date: Status: REG ERPHONE #: [phone] Exam Date: 11/05/2019 1725 FAX #: [phone] Reason: R/O ABSCESS OF BREAST EXAMS: CPT CODE: [id number] [place] [address] <Continued> CC: Adrianna Kurtz ANODISER; [place] Olmos MD Technologist: Mahin Gonzalez [facility] Trnscrd Date/Time/By: 11/05/2019(1739) : By: [email or web address] PAGE 2 Signed Report FAX: Adrianna Crawford [phone] [place]: St: REG FAX: [place] [phone] Name: TRISHA CUADRA : 1995 Age/S: 24/F [address] Unit #: [id number] Loc: [place] [address] Phys: Adrianna Kurtz NP Acct: [id number] Dis Date: Status: REG ER PHONE #: [phone] Exam Date: 11/05/2019 5409 FAX #: [phone] Reason: R/O ABSCESS OF BREAST EXAMS: CPT CODE: [id number] [place] [address] <Continued> Orig Print D/T: S: 11/05/2019 (1167) PAGE 3 Signed ReportURINALYSIS [id number] 17:36:00* Test Item Value Reference Range Interpretation Comme nts UA COLOR (test code = COLU) Yellow Yellow UA APPEARANCE (test code = APPU) Cloudy Clear A UA GLUCOSE DIPSTICK (test code = DGLUU) Negative Negative UA BILIRUBIN DIPSTICK (test code = BILU) Negative Negative UA KETONE DIPSTICK (test cod e = KETU) Negative mg/dL Negative UA SPECIFIC GRAVITY (test code = SGU) 1.021 <1.030 UA BLOOD DIPSTICK (test code = NILSA) 3+ Negative A UA PH DIPSTICK (test code = LOW) 7.0 5.0-8.0 UA PROTEIN DIPSTICK (test code = PROU) 100 (2+) mg/dL Negative A UA UROBILINOGEN DIPSTICK (test code = URO) 2.0 mg/dL Negative A UA NITRITE DIPSTICK (test code = CONSUELO) Negative Negative UA LEUKOCYTE ESTERASE DIPSTICK (test code = LEUU) 3+ Negative A UA WBC (test code = WBCU) >100 /HPF <4-5 A UA RBC (test code = RBCU) >100 /HPF <4-5 A UA BACTERIA (test code = BACU) 2+ /HPF None-Rare A UA SQUAMOUS CELLS (test code = SQU) >25 (MANY) /HPF 0-5 (RARE) A COMPREHENSIVE METABOLIC [id number] 17:07:00* Test Item Value Reference Range Interpretation Comme nts SODIUM (test code = NA) 146 mmol/L 137-145 H POTASSIUM (test code = K) 4.0 mmol/L 3.4-5.0 N CHLORIDE (test code = CL) 109 mmol/L 98-107 H CARBON DIOXIDE (test code = CO2) 26 mmol/L 22-30 N GLUCOSE (test code = GLU) 108 mg/dL 74-106 H BLOOD UREA NITROGEN (test code = BUN) 7 mg/dL 7-17 N GLOMERULAR FILTRATION RATE (test code = GFR) 133 >60 The estim ated glomerular filtration rate is computed usingpatient race, age (>18), sex, and serum creatinine. If anyof the needed data elements are missing the Laboratory cannot compute an estimation of the glomerular filtration rate. CREATININE (test code = CREAT) 0.6 mg/dL 0.5-1.0 N TOTAL PROTEIN (test code = PROT) 7.0 g/dL 6.3-8.2 N ALBUMIN (test code = ALB) 3.7 g/dL 3.5-5.0 N CALCIUM (test code = CA) 8.6 mg/dL 8.4-10.2 N BILIRUBIN TOTAL (test code = BILT) 0.4 mg/dL 0.2-1.3 N BILIRUBIN CONJUGATED (test code = BILCON) 0 mg/dL 0-0.3 N ~~~~~~~~~~~ ~~~~~~~~~~ ~~~~~~~~~~~~~~~~~~~~~ ~~~~~~~~~~~~~~~~~~CON JUGATED BILIRUBIN IS THE REPLACEMENT ASSAY FOR DIRECTBILIRUBIN.~~~~~ ~~~~~~~~~~~~~~~~~~~~~ ~~~~~~~~~~~~~~~~~~~~~ ~~~~~~~~~~~~~ BILIRUBIN UNCONJUGATED (test code = BILUNC) 0 mg/dL 0-1.1 N SGOT/AST (test code = AST) 18 U/L 15-46 N SGPT/ALT (test code = ALT) 18 U/L 13-69 N ALKALINE PHOSPHATASE (test code = ALKP) 112 U/L 38-126 N HCG [id number] 16:54:00* Test Item Value Reference Range Interpretation Comme nts HCG POC (test code = HCGPOC) <5.0 IU/L 0-4.9 N Results of 5.0-25.0 IU/L are indeterminate and do not ruleout . Because HCG values double approximately every48 hours in a normal , patients with low levels ofHCG should be resampled and retested after 48 hours toconfirm . LACTIC ACID [id number] 16:54:00* Test Item Value Reference Range Interpretation Comme [facility] LACTIC ACID POC (test code = LACTP) 1.39 mmol/L 0.7-2.0 N CBC W/AUTO [id number] 16:53:00* Test Item Value Reference Range Interpretation Comme nts WHITE BLOOD CELL (test code = WBC) 20.3 x10 3/uL 5.0-12.0 H RED BLOOD CELL (test code = RBC) 4.73 x10 6/uL 4.20-5.40 N HEMOGLOBIN (test code = HGB) 12.9 g/dL 12.0-16.0 N HEMATOCRIT (test code = HCT) 41.0 % 36.0-46.0 N MEAN CELL VOLUME (test code = MCV) 87 fL 81-99 N MEAN CELL HGB (test code = MCH) 27.3 pg 27-31 N MEAN CELL HGB CONCENTRATION (test code = MCHC) 31.5 g/dL 33-37 L RED CELL DISTRIBUTION WIDTH (test code = RDW) 15.6 % 11.5-15.5 H PLATELET COUNT (test code = PLT) 495 x10 3/uL 130-400 H MEAN PLATELET VOLUME (test code = MPV) 10.3 fL 9.4-16.4 N NEUTROPHIL % (test code = NT%) 73.0 % 43-65 H IMMATURE GRANULOCYTE % (test code = IG%) 0.6 % 0.0-2.0 N LYMPHOCYTE % (test code = LY%) 16.7 % 20.5-45.5 L MONOCYTE % (test code = MO%) 6.0 % 5.5-11.7 N EOSINOPHIL % (test code = EO%) 3.1 % 0.9-2.9 H BASOPHIL % (test code = BA%) 0.6 % 0.2-1.0 N NUCLEATED RBC % (test code = NRBC%) 0.0 % 0-1.0 N NEUTROPHIL # (test code = NT#) 14.82 x10 3/uL 2.2-4.8 H IMMATURE GRANULOCYTE # (test code = IG#) 0.13 x10 3/uL 0-0.03 H LYMPHOCYTE # (test code = LY#) 3.40 x10 3/uL 1.3-2.9 H MONOCYTE # (test code = MO#) 1.21 x10 3/uL 0.3-0.8 H EOSINOPHIL # (test code = EO#) 0.63 x10 3/uL 0.0-0.2 H BASOPHIL # (test code = BA#) 0.12 x10 3/uL 0.0-0.1 H AB RUBELLA [id number] 07:13:00* Test Item Value Reference Range Interpretation Comme nts AB RUBELLA IGM (test code = RUBMAB) <20.0 AU/mL 0.0-19.9 Negative <20.0 Equivocal 20.0 - 24.9 Positive >24.9Performed At: [facility] [id number] Sanjai MD Ph:[phone] Has the HIV testing consent form been signed? YESAB RUBELLA [id number] 07:13:00* Test Item Value Reference Range Interpretation Comme nts AB RUBELLA IGG (test code = RUBGAB) 0.97 index Immune >0.99 A A second sample should be collected and tested no less than2-4 weeks. Non-immune <0.90 Equivocal 0.90 - 0.99 Immune >0.99Performed At: [facility] [id number] Oakley MD Ph:[phone] Has the HIV testing consent form been signed? YESAB HIV 1 07:13:00* Test Item Value Reference Range Interpretation Comme nts AB HIV 1 2 (test code = [id number]) NonReactive SREEN NR This is a screening test only A Non-Reactive test result does not exclude the possibilityof exposure to or infection with HIV. HIV antibodies and/orantigen may be undetectable in some stages of infection.Currently available assays for the detection of p24 antigenand/or antibodies to HIV-1 and/or HIV-2 may not detect allinfected individuals. HIV-1/HIV-2 differentiation testing will be reflexedautomatically per pathologist approved reflex protocols onall Reactive test results. Has the HIV testing consent form been signed? YESAB RUBELLA [id number] 13:10:00* Test Item Value Reference Range Interpretation Comme nts AB RUBELLA IGM (test code = RUBMAB) Has the HIV testing consent form been signed? YESAB RUBELLA [id number] 13:10:00* Test Item Value Reference Range Interpretation Comme nts AB RUBELLA IGG (test code = RUBGAB) 0.97 index Immune >0.99 A A second sample should be collected and tested no less than2-4 weeks. Non-immune <0.90 Equivocal 0.90 - 0.99 Immune >0.99Performed At: [facility] [id number] Kyle L MD Ph:[phone] Has the HIV testing consent form been signed? YESAB HIV 1 13:10:00* Test Item Value Reference Range Interpretation Comme nts AB HIV 1 2 (test code = [id number]) NonReactive SREEN NR This is a screening test only A Non-Reactive test result does not exclude the possibilityof exposure to or infection with HIV. HIV antibodies and/orantigen may be undetectable in some stages of infection.Currently available assays for the detection of p24 antigenand/or antibodies to HIV-1 and/or HIV-2 may not detect allinfected individuals. HIV-1/HIV-2 differentiation testing will be reflexedautomatically per pathologist approved reflex protocols onall Reactive test results. Has the HIV testing consent form been signed? YESAB RUBELLA [id number] 12:44:00* Test Item Value Reference Range Interpretation Comme nts AB RUBELLA IGM (test code = RUBMAB) Has the HIV testing consent form been signed? YESAB RUBELLA [id number] 12:44:00* Test Item Value Reference Range Interpretation Comme nts AB RUBELLA IGG (test code = RUBGAB) Has the HIV testing consent form been signed? YESAB HIV 1 12:44:00* Test Item Value Reference Range Interpretation Comme nts AB HIV 1 2 (test code = [id number]) NonReactive SREEN NR This is a screening test only A Non-Reactive test result does not exclude the possibilityof exposure to or infection with HIV. HIV antibodies and/orantigen may be undetectable in some stages of infection.Currently available assays for the detection of p24 antigenand/or antibodies to HIV-1 and/or HIV-2 may not detect allinfected individuals. HIV-1/HIV-2 differentiation testing will be reflexedautomatically per pathologist approved reflex protocols onall Reactive test results. Has the HIV testing consent form been signed? YESHBSAG NEUTRALIZATION PANEL 2019-09-27 12:44:00* Test Item Value Reference Range Interpretation Comme nts AG HEPATITIS B SURFACE (test code = HBSAG) NEG-NONREAC SCREEN Nonreactive AB [id number] 12:44:00* Test Item Value Reference Range Interpretation Comme nts AB TREPONEMA (test code = TREPAB) NonReactive Screen NonReactive URINALYSIS [id number] 12:04:00* Test Item Value Reference Range Interpretation Comme nts UA COLOR (test code = COLU) YELLOW DESCRIPT YELLOW UA APPEARANCE (test code = APPU) CLEAR DESCRIPT CLEAR UA GLUCOSE DIPSTICK (test code = DGLUU) NEGATIVE (0) mg/dL (NEG) 0 UA BILIRUBIN DIPSTICK (test code = BILU) NEGATIVE (0) mg/dL (NEG) 0 UA KETONE DIPSTICK (test code = KETU) 0 (NEG) mg/dL (NEG) 0 UA SPECIFIC GRAVITY (test code = SGU) 1.011 SG 1.001-1.035 UA BLOOD DIPSTICK (test code = NILSA) NEGATIVE (0) mg/DL (NEG) 0 UA PH DIPSTICK (test code = LOW) 7.0 pH UNITS 4.6-8.0 UA PROTEIN DIPSTICK (test code = PROU) NEGATIVE (0) mg/dL <30 (1+) UA UROBILINIOGEN DIPSTICK (test code = URO) NORMAL (0) mg/dL <2.0 (1+) UA NITRITE DIPSTICK (test code = CONSUELO) NEGATIVE (0) SCREEN NEG UA LEUKOCYTE ESTERASE DIPSTICK (test code = LEUU) NEGATIVE (0) Leuk/mcL (NEG) 0 UA WBC (test code = WBCU) 0-3 #WBC/HPF 0-3 UA RBC (test code = RBCU) 0-3 #RBC/HPF 0-3 UA BACTERIA (test code = BACU) FEW >1 /HPF NONE-FEW UA SQUAMOUS CELLS (test code = SQU) MODERATE >10 /HPF NONE-SQepi UA MUCUS (test code = MUCU) RARE /LPF NONE DRUGS OF ABUSE SCREEN [id number] 12:04:00* Test Item Value Reference Range Interpretation Comments URN COCAINE (test code = COCAURN) NONE DETECTED (NEG) SCcutoff <300 NG/ML URN CANNABINOIDS (test code = CANNABURN) POSITIVE SCcutoff <50 NG/ML A URN AMPHETAMINE (test code = AMPHETURN) NONE DETECTED (NEG) SCcutoff <1000 NG/ML URN BARBITURATE (test code = BARBITURN) NONE DETECTED (NEG) SCcutoff <200 NG/ML URN BENZODIAZEPINE (test code = BENZOURN) NONE DETECTED (NEG) SCcutoff <200 NG/ML URN OPIATES (test code = OPIATURN) NONE DETECTED (NEG) SCcutoff <300 NG/ML URN PHENCYCLIDINE (PCP) (test code = PHENCURN) NONE DETECTED (NEG) SCcutoff <25 NG/ML ------ For all drug screen analytes ------The screen method provides only a preliminary analyticaltest result. A more specific alternate chemical method mustbe used in order to obtain a confirmed analytical result.Gas chromatography/mass spectrometry (GC/MS) is thepreferred confirmatory method. Other chemical confirmationmethods are available. Clinical consideration andprofessional judgement should be applied to any drug ofabuse test result, particularly when preliminary positiveresults are used. URINALYSIS [id number] 11:44:00* Test Item Value Reference Range Interpretation Comme nts UA COLOR (test code = COLU) YELLOW DESCRIPT YELLOW UA APPEARANCE (test code = APPU) CLEAR DESCRIPT CLEAR UA GLUCOSE DIPSTICK (test code = DGLUU) NEGATIVE (0) mg/dL (NEG) 0 UA BILIRUBIN DIPSTICK (test code = BILU) NEGATIVE (0) mg/dL (NEG) 0 UA KETONE DIPSTICK (test code = KETU) 0 (NEG) mg/dL (NEG) 0 UA SPECIFIC GRAVITY (test code = SGU) 1.011 SG 1.001-1.035 UA BLOOD DIPSTICK (test code = NILSA) NEGATIVE (0) mg/DL (NEG) 0 UA PH DIPSTICK (test code = LOW) 7.0 pH UNITS 4.6-8.0 UA PROTEIN DIPSTICK (test code = PROU) NEGATIVE (0) mg/dL <30 (1+) UA UROBILINIOGEN DIPSTICK (test code = URO) NORMAL (0) mg/dL <2.0 (1+) UA NITRITE DIPSTICK (test code = CONSUELO) NEGATIVE (0) SCREEN NEG UA LEUKOCYTE ESTERASE DIPSTICK (test code = LEUU) NEGATIVE (0) Leuk/mcL (NEG) 0 UA WBC (test code = WBCU) 0-3 #WBC/HPF 0-3 UA RBC (test code = RBCU) 0-3 #RBC/HPF 0-3 UA BACTERIA (test code = BACU) FEW >1 /HPF NONE-FEW UA SQUAMOUS CELLS (test code = SQU) MODERATE >10 /HPF NONE-SQepi UA MUCUS (test code = MUCU) RARE /LPF NONE DRUGS OF ABUSE SCREEN [id number] 11:44:00* Test Item Value Reference Range Interpretation Comme nts URN COCAINE (test code = COCAURN) SCcutoff <300 NG/ML URN CANNABINOIDS (test code = CANNABURN) SCcutoff <50 NG/ML URN AMPHETAMINE (test code = AMPHETURN) SCcutoff <1000 NG/ML URN BARBITURATE (test code = BARBITURN) SCcutoff <200 NG/ML URN BENZODIAZEPINE (test cod e = BENZOURN) SCcutoff <200 NG/ML URN OPIATES (test code = OPIATURN) SCcutoff <300 NG/ML URN PHENCYCLIDINE (PCP) (alissa t code = PHENCURN) SCcutoff <25 NG/ML CBC W/AUTO [id number] 11:38:00* Test Item Value Reference Range Interpretation Comme nts WHITE BLOOD CELL (test code = WBC) 14.8 K/mm3 4.1-12.1 H RED BLOOD CELL (test code = RBC) 4.16 M/mm3 3.8-5.5 N HEMOGLOBIN (test code = HGB) 11.9 G/DL 10.6-15.8 N HEMATOCRIT (test code = HCT) 37.2 % 31.8-47.4 N MEAN CELL VOLUME (test code = MCV) 89.4 fL 80.1-101.1 N MEAN CELL HGB (test code = MCH) 28.6 pg 25.3-35.3 N MEAN CELL HGB CONCETRATION ( test code = MCHC) 32.0 G/DL 32.7-35.1 L RED CELL DISTRIBUTION WIDTH (test code = RDW) 14.2 % 12.2-16.4 N RED CELL DISTRIBUTION WIDTH (test code = RDW-SD) 45.4 fL 36.4-46.3 N PLATELET COUNT (test code = PLT) 353 K/mm3 155-337 H MEAN PLATELET VOLUME (test c ode = MPV) 10.7 fL 6.8-11.2 N GRANULOCYTE % (test code = GR%) 76.3 % 37.8-82.6 N IMMATURE GRANULOCYTE % (test code = IG%) 0.7 % 0.0-2.0 N LYMPHOCYTE % (test code = LY%) 13.9 % 14.1-45.4 L MONOCYTE % (test code = MO%) 6.5 % 2.5-11.7 N EOSINOPHIL % (test code = EO%) 2.2 % 0.0-6.2 N BASOPHIL % (test code = BA%) 0.4 % 0.0-2.1 N NUCLEATED RBC % (test code = NRBC%) 0.0 /100WBC% 0.0-1.0 N GRANULOCYTE # (test code = GR#) 11.31 k/mm3 2.0-13.7 N IMMATURE GRANULOCYTE # (test code = IG#) 0.10 K/mm3 0.00-0.03 H LYMPHOCYTE # (test code = LY#) 2.06 K/mm3 0.6-3.8 N MONOCYTE # (test code = MO#) 0.97 K/mm3 0.11-0.59 H EOSINOPHIL # (test code = EO#) 0.32 K/mm3 0.0-0.4 N BASOPHIL # (test code = BA#) 0.06 K/mm3 0.0-0.1 N NUCLEATED RBC # (test code = NRBC#) 0.00 K/mm3 0.0-0.05 N URINALYSIS [id number] 11:33:00* Test Item Value Reference Range Interpretation Comme nts UA COLOR (test code = COLU) YELLOW DESCRIPT YELLOW UA APPEARANCE (test code = APPU) CLEAR DESCRIPT CLEAR UA GLUCOSE DIPSTICK (test code = DGLUU) NEGATIVE (0) mg/dL (NEG) 0 UA BILIRUBIN DIPSTICK (test code = BILU) NEGATIVE (0) mg/dL (NEG) 0 UA KETONE DIPSTICK (test code = KETU) 0 (NEG) mg/dL (NEG) 0 UA SPECIFIC GRAVITY (test code = SGU) 1.011 SG 1.001-1.035 UA BLOOD DIPSTICK (test code = NILSA) NEGATIVE (0) mg/DL (NEG) 0 UA PH DIPSTICK (test code = LOW) 7.0 pH UNITS 4.6-8.0 UA PROTEIN DIPSTICK (test code = PROU) NEGATIVE (0) mg/dL <30 (1+) UA UROBILINIOGEN DIPSTICK (test code = URO) NORMAL (0) mg/dL <2.0 (1+) UA NITRITE DIPSTICK (test code = CONSUELO) NEGATIVE (0) SCREEN NEG UA LEUKOCYTE ESTERASE DIPSTICK (test code = LEUU) NEGATIVE (0) Leuk/mcL (NEG) 0 UA RBC (test code = RBCU) #RBC/HPF 0-3 DRUGS OF ABUSE SCREEN [id number] 11:33:00* Test Item Value Reference Range Interpretation Comme nts URN COCAINE (test code = COCAURN) SCcutoff <300 NG/ML URN CANNABINOIDS (test code = CANNABURN) SCcutoff <50 NG/ML URN AMPHETAMINE (test code = AMPHETURN) SCcutoff <1000 NG/ML URN BARBITURATE (test code = BARBITURN) SCcutoff <200 NG/ML URN BENZODIAZEPINE (test cod e = BENZOURN) SCcutoff <200 NG/ML URN OPIATES (test code = OPIATURN) SCcutoff <300 NG/ML URN PHENCYCLIDINE (PCP) (alissa t code = PHENCURN) SCcutoff <25 NG/ML - US PREG AFTER [id number] 10:47:00Patient Name: TRISHA CUADRA Unit No: [id number] EXAMS: CPT CODE: [id number] US PREG AFTER TRI [id number] Examination: Obstetrical ultrasound Clinical indication: IUP AT 39.5 WKS; CONTXS Location code: B2 Comparison: None Discussion: Transverse and longitudinal images were obtained of the maternal abdomen to evaluate the fetus. There is a single viable intrauterine gestation in vertex presentation with heart rate measuring 126 beats per minute. The following values were obtained: BPD8.5 cm - 34 weeks and 0 days HC 30.6 cm - 34 weeks and 1 day AC 29.6 cm - 33 weeks and 4 days FL 6.7 cm - 34 weeks and 2 days JOSHUA 13.8 cm EFW 2301 g Based upon sonographic criteria, the calculated age is 34 weeks, 0 days with an estimated date of delivery of 11/08/2019. A grade 3 placenta isidentified, anteriorly. The cervix is closed, measuring 3.5 cm. The following structures wereseen and evaluated as normal: Face, heart, bladder, spine, kidneys, extremities, and 3 vessel cord.Additional structures were not adequately visualized to exclude anomaly. The maternal adnexaewere not well seen. Impression: 1. Single viable intrauterine gestation with estimated age 34weeks and 0 days. 2. Limited negative anatomic survey. Advise followup if indicated. at 1047 Reported and signed by: Marnie Suarez MD CC: Dalton Olmos MD Technologist: Aye Kolb RDMS Trnscrbd D/T: (1047) [email or web address] Probe: Orig Print D/T: S: 09/27/2019 (1050) Probe: CHARLOTTE Arellano NAME: TRISHA CUADRA [facility] PHYS: Dalton Sykes [address] [place] [address] BLVD : 1995 AGE: 24 SEX: [place], [place] [address] LOC: B.[facility] PHONE #: [phone] EXAM DATE: 09/27/2019 STATUS: PRE ER FAX #: [phone] RAD NO: Page 1 Signed Report *[facility] ([id number])2014-02-20 00:00:00* Test Item Value Reference Range Interpretation Comme nts STREPTOCOCCUS GRP A, INFCTS ANTIGN (test code = 6556-5) neg N *[facility] ([id number])2014-02-20 00:00:00* Test Item Value Reference Range Interpretation Comme nts STREPTOCOCCUS GRP A, INFCTS ANTIGN (test code = 6556-5) neg N *[facility] ([id number])2014-02-20 00:00:00* Test Item Value Reference Range Interpretation Comme nts STREPTOCOCCUS GRP A, INFCTS ANTIGN (test code = 6556-5) neg N *[facility] ([id number])2014-02-20 00:00:00* Test Item Value Reference Range Interpretation Comme nts STREPTOCOCCUS GRP A, INFCTS ANTIGN (test code = 6556-5) neg N *[facility] ([id number])2014-02-20 00:00:00* Test Item Value Reference Range Interpretation Comme nts STREPTOCOCCUS GRP A, INFCTS ANTIGN (test code = 6556-5) neg N *[facility] ([id number])2014-02-20 00:00:00* Test Item Value Reference Range Interpretation Comme nts STREPTOCOCCUS GRP A, INFCTS ANTIGN (test code = 6556-5) neg N *[facility] ([id number])2014-02-20 00:00:00* Test Item Value Reference Range Interpretation Comme nts STREPTOCOCCUS GRP A, INFCTS ANTIGN (test code = 6556-5) neg N *[facility] ([id number])2014-02-20 00:00:00* Test Item Value Reference Range Interpretation Comme nts STREPTOCOCCUS GRP A, INFCTS ANTIGN (test code = 6556-5) neg N *[facility] ([id number])2014-02-20 00:00:00* Test Item Value Reference Range Interpretation Comme nts STREPTOCOCCUS GRP A, INFCTS ANTIGN (test code = 6556-5) neg N *[facility] ([id number])2014-02-20 00:00:00* Test Item Value Reference Range Interpretation Comme nts STREPTOCOCCUS GRP A, INFCTS ANTIGN (test code = 6556-5) neg N *[facility] ([id number])2014-02-20 00:00:00* Test Item Value Reference Range Interpretation Comme nts STREPTOCOCCUS GRP A, INFCTS ANTIGN (test code = 6556-5) neg N *[facility] (86135)2014-01-30 00:00:00* Test Item Value Reference Range Interpretation Comme nts *[facility] (t est code = *[facility] urine ) Negative N *[facility] ([id number])2014-01-30 00:00:00* Test Item Value Reference Range Interpretation Comme nts *[facility] (t est code = *[facility] urine ) Negative N *[facility] ([id number])2014-01-30 00:00:00* Test Item Value Reference Range Interpretation Comme nts *[facility] (t est code = *[facility] urine ) Negative N *[facility] (38774)2014-01-30 00:00:00* Test Item Value Reference Range Interpretation Comme nts *[facility] urine (t est code = *[facility] urine ) Negative N *[facility] (73997)2014-01-30 00:00:00* Test Item Value Reference Range Interpretation Comme nts *[facility] urine (t est code = *[facility] urine ) Negative N *[facility] ([id number])2014-01-30 00:00:00* Test Item Value Reference Range Interpretation Comme nts *[facility] urine (t est code = *[facility] urine ) Negative N *[facility] ([id number])2014-01-30 00:00:00* Test Item Value Reference Range Interpretation Comme nts *[facility] urine (t est code = *[facility] urine ) Negative N *[facility] (56153)2014-01-30 00:00:00* Test Item Value Reference Range Interpretation Comme nts *[facility] urine (t est code = *[facility] urine ) Negative N *[facility] ([id number])2014-01-30 00:00:00* Test Item Value Reference Range Interpretation Comme nts *[facility] urine (t est code = *[facility] urine ) Negative N *[facility] ([id number])2014-01-30 00:00:00* Test Item Value Reference Range Interpretation Comme nts *[facility] urine (t est code = *[facility] urine ) Negative N *[facility] (12981)2014-01-30 00:00:00* Test Item Value Reference Range Interpretation Comme nts *[facility] (t est code = *[facility] urine ) Negative N *[facility] PPD SKIN TEST INTRADERMAL TB (97398)2013-04-25 00:00:00* Test Item Value Reference Range Interpretation Comme nts *[facility] PPD SKIN TEST INTRADERMAL TB (test code = *[facility] PPD SKIN TEST INTRADERMAL TB) None N PPD placed to ri ght forearm. Lot #[id number] exp 05/2014Patient advised to RTC in 48 hrs for PPD reading.Negative readining on 04/27/2013/pg HIV 1 ANTIBODY SCRN ([id number])2013-04-25 00:00:00* Test Item Value Reference Range Interpretation Comme nts HIV 1/O/2 Abs-Index Value (test code = 97172-8) <1.00 N Index Value: Spe cimen reactivity relative to the negative cutoff. HIV 1/O/2 Abs, Qual (test code = 92077-2) Non Reactive N HIV-2 ANTIBODY (33327)2013-04-25 00:00:00* Test Item Value Reference Range Interpretation Comme nts HIV-2 Ab-O.D. Ratio (test code = HIV-2 Ab-O.D. Ratio) Negative N Interpretation: A repeatedly reactive HIV-2 result may indicateinfection with HIV-2 virus. However, HIV1 positive patients (50-90%)may also react in HIV-2 EIA. Reactive results should be investigatedby supplemental tests. Positive HIV-2 results should be consideredindicative of infection if HIV-1 has been ruled out with negativeHIV-1 testing, patient has epidemiological risk factors for HIV-2, andsupplemental tests such as HIV-2 Immunoblot (Investigational use only)show the presence of HIV-2 specific viral bands. HSVIG+HSVIIG+HSVIgM (05774)2013-04-25 00:00:00* Test Item Value Reference Range Interpretation Comme nts HSV, IgM I/II Combination (test code = HSV, IgM I/II Combination) 2.11 {Ratio} 0.00-0.90 A Negative <0.91 Equivocal 0.91 - 1.09 Positive >1.09 HSV 1 IgG, Type Spec (test code = HSV 1 IgG, Type Spec) 5.97 {index} 0.00-0.90 A Negative <0.91 Equivocal 0.91 - 1.09 Positive >1.09 . Note: Negative indicates no antibodies detected to HSV-1. Equivocal may suggest early infection. If clinically appropriate, retest at later date. Positive indicates antibodies detected to HSV-1; coinfection with HSV-2 cannot be excluded without type specific testing. HSV 2 IgG, Type Spec (test code = HSV 2 IgG, Type Spec) <0.91 0.00-0.90 N Negative <0.91 Equivocal 0.91 - 1.09 Positive >1.09 . Note: Negative indicates no antibodies detected to HSV-2. Equivocal may suggest early infection. If clinically appropriate, retest at later date. Positive indicates antibodies detected to HSV-2; coinfection with HSV-1 cannot be excluded without type specific testing. RPR (RAPID PLASMA REAGIN) ([id number])2013-04-25 00:00:00* Test Item Value Reference Range Interpretation Comme nts RPR (test code = 50367-2) Non Reactive N HEPATITIS C ANTIBODY (43708)2013-04-25 00:00:00* Test Item Value Reference Range Interpretation Comme nts Hep C Virus Ab (test code = Hep C Virus Ab) <0.1 0.0-0.9 N Negative: < 0.8 Indeterminate 0.8 - 0.9 Positive: > 0.9 . In order to reduce the incidence of a false positive result, the CDC recommends that all s/co ratios between 1.0 and 10.9 be confirmed by a more specific supplemental or PCR testing. [facility] offers HCV Ab w/Reflex to Verification test #[id number]. *[facility] (70893)2013-04-25 00:00:00* Test Item Value Reference Range Interpretation Comme nts *[facility] urine (t est code = *[facility] urine ) Negative N Chlamydia/GC Amplification(APTIMA SWAB) (88473)2013-04-25 00:00:00* Test Item Value Reference Range Interpretation Comme nts Chlamydia trachomatis, ANDRES (test code = 63747-0) Negative N Neisseria gonorrhoeae, ANDRES (test code = 98871-9) Negative N Please note: (test code = Please note:) [facility] N Acceptable specimens for this test are male urethral swab,endocervical swab and liquid based pap specimens, vaginal swabs inAPTIMA transports and first void urine. See online Directory ofServices for test number for rectal and pharyngeal specimens. *[facility] PPD SKIN TEST INTRADERMAL TB ([id number])2013-04-25 00:00:00* Test Item Value Reference Range Interpretation Comme nts *[facility] PPD SKIN TEST INTRADERMAL TB (test code = *[facility] PPD SKIN TEST INTRADERMAL TB) None N PPD placed to ri ght forearm. Lot #[id number] exp 05/2014Patient advised to RTC in 48 hrs for PPD reading.Negative readining on 04/27/2013/pg HIV 1 ANTIBODY SCRN ([id number])2013-04-25 00:00:00* Test Item Value Reference Range Interpretation Comme nts HIV 1/O/2 Abs-Index Value (test code = 59709-9) <1.00 N Index Value: Spe cimen reactivity relative to the negative cutoff. HIV 1/O/2 Abs, Qual (test code = 09414-6) Non Reactive N HIV-2 ANTIBODY (55666)2013-04-25 00:00:00* Test Item Value Reference Range Interpretation Comme nts HIV-2 Ab-O.D. Ratio (test code = HIV-2 Ab-O.D. Ratio) Negative N Interpretation: A repeatedly reactive HIV-2 result may indicateinfection with HIV-2 virus. However, HIV1 positive patients (50-90%)may also react in HIV-2 EIA. Reactive results should be investigatedby supplemental tests. Positive HIV-2 results should be consideredindicative of infection if HIV-1 has been ruled out with negativeHIV-1 testing, patient has epidemiological risk factors for HIV-2, andsupplemental tests such as HIV-2 Immunoblot (Investigational use only)show the presence of HIV-2 specific viral bands. HSVIG+HSVIIG+HSVIgM (93563)2013-04-25 00:00:00* Test Item Value Reference Range Interpretation Comme nts HSV, IgM I/II Combination (test code = HSV, IgM I/II Combination) 2.11 {Ratio} 0.00-0.90 A Negative <0.91 Equivocal 0.91 - 1.09 Positive >1.09 HSV 1 IgG, Type Spec (test code = HSV 1 IgG, Type Spec) 5.97 {index} 0.00-0.90 A Negative <0.91 Equivocal 0.91 - 1.09 Positive >1.09 . Note: Negative indicates no antibodies detected to HSV-1. Equivocal may suggest early infection. If clinically appropriate, retest at later date. Positive indicates antibodies detected to HSV-1; coinfection with HSV-2 cannot be excluded without type specific testing. HSV 2 IgG, Type Spec (test code = HSV 2 IgG, Type Spec) <0.91 0.00-0.90 N Negative <0.91 Equivocal 0.91 - 1.09 Positive >1.09 . Note: Negative indicates no antibodies detected to HSV-2. Equivocal may suggest early infection. If clinically appropriate, retest at later date. Positive indicates antibodies detected to HSV-2; coinfection with HSV-1 cannot be excluded without type specific testing. RPR (RAPID PLASMA REAGIN) ([id number])2013-04-25 00:00:00* Test Item Value Reference Range Interpretation Comme nts RPR (test code = 19414-2) Non Reactive N HEPATITIS C ANTIBODY ([id number])2013-04-25 00:00:00* Test Item Value Reference Range Interpretation Comme nts Hep C Virus Ab (test code = Hep C Virus Ab) <0.1 0.0-0.9 N Negative: < 0.8 Indeterminate 0.8 - 0.9 Positive: > 0.9 . In order to reduce the incidence of a false positive result, the CDC recommends that all s/co ratios between 1.0 and 10.9 be confirmed by a more specific supplemental or PCR testing. [facility] offers HCV Ab w/Reflex to Verification test #[id number]. Chlamydia/GC Amplification(APTIMA SWAB) (35134)2013-04-25 00:00:00* Test Item Value Reference Range Interpretation Comme nts Chlamydia trachomatis, ANDRES (test code = 16648-7) Negative N Neisseria gonorrhoeae, ANDRES (test code = 50501-8) Negative N Please note: (test code = Please note:) [facility] N Acceptable specimens for this test are male urethral swab,endocervical swab and liquid based pap specimens, vaginal swabs inAPTIMA transports and first void urine. See online Directory ofServices for test number for rectal and pharyngeal specimens. *[facility] urine (19594)2013-04-25 00:00:00* Test Item Value Reference Range Interpretation Comme nts *[facility] urine (t est code = *[facility] urine ) Negative N *[facility] PPD SKIN TEST INTRADERMAL TB (25046)2013-04-25 00:00:00* Test Item Value Reference Range Interpretation Comme nts *[facility] PPD SKIN TEST INTRADERMAL TB (test code = *[facility] PPD SKIN TEST INTRADERMAL TB) None N PPD placed to ri ght forearm. Lot #[id number] exp 05/2014Patient advised to RTC in 48 hrs for PPD reading.Negative readining on 04/27/2013/pg HIV 1 ANTIBODY SCRN ([id number])2013-04-25 00:00:00* Test Item Value Reference Range Interpretation Comme nts HIV 1/O/2 Abs-Index Value (test code = 62970-4) <1.00 N Index Value: Spe cimen reactivity relative to the negative cutoff. HIV 1/O/2 Abs, Qual (test code = 03652-1) Non Reactive N HIV-2 ANTIBODY ([id number])2013-04-25 00:00:00* Test Item Value Reference Range Interpretation Comme nts HIV-2 Ab-O.D. Ratio (test code = HIV-2 Ab-O.D. Ratio) Negative N Interpretation: A repeatedly reactive HIV-2 result may indicateinfection with HIV-2 virus. However, HIV1 positive patients (50-90%)may also react in HIV-2 EIA. Reactive results should be investigatedby supplemental tests. Positive HIV-2 results should be consideredindicative of infection if HIV-1 has been ruled out with negativeHIV-1 testing, patient has epidemiological risk factors for HIV-2, andsupplemental tests such as HIV-2 Immunoblot (Investigational use only)show the presence of HIV-2 specific viral bands. HSVIG+HSVIIG+HSVIgM (19277)2013-04-25 00:00:00* Test Item Value Reference Range Interpretation Comme nts HSV, IgM I/II Combination (test code = HSV, IgM I/II Combination) 2.11 {Ratio} 0.00-0.90 A Negative <0.91 Equivocal 0.91 - 1.09 Positive >1.09 HSV 1 IgG, Type Spec (test code = HSV 1 IgG, Type Spec) 5.97 {index} 0.00-0.90 A Negative <0.91 Equivocal 0.91 - 1.09 Positive >1.09 . Note: Negative indicates no antibodies detected to HSV-1. Equivocal may suggest early infection. If clinically appropriate, retest at later date. Positive indicates antibodies detected to HSV-1; coinfection with HSV-2 cannot be excluded without type specific testing. HSV 2 IgG, Type Spec (test code = HSV 2 IgG, Type Spec) <0.91 0.00-0.90 N Negative <0.91 Equivocal 0.91 - 1.09 Positive >1.09 . Note: Negative indicates no antibodies detected to HSV-2. Equivocal may suggest early infection. If clinically appropriate, retest at later date. Positive indicates antibodies detected to HSV-2; coinfection with HSV-1 cannot be excluded without type specific testing. RPR (RAPID PLASMA REAGIN) ([id number])2013-04-25 00:00:00* Test Item Value Reference Range Interpretation Comme nts RPR (test code = 59263-5) Non Reactive N HEPATITIS C ANTIBODY (81796)2013-04-25 00:00:00* Test Item Value Reference Range Interpretation Comme nts Hep C Virus Ab (test code = Hep C Virus Ab) <0.1 0.0-0.9 N Negative: < 0.8 Indeterminate 0.8 - 0.9 Positive: > 0.9 . In order to reduce the incidence of a false positive result, the CDC recommends that all s/co ratios between 1.0 and 10.9 be confirmed by a more specific supplemental or PCR testing. [facility] offers HCV Ab w/Reflex to Verification test #[id number]. Chlamydia/GC Amplification(APTIMA SWAB) (56298)2013-04-25 00:00:00* Test Item Value Reference Range Interpretation Comme nts Chlamydia trachomatis, ANDRES (test code = 73317-9) Negative N Neisseria gonorrhoeae, ANDRES (test code = 26377-4) Negative N Please note: (test code = Please note:) [facility] N Acceptable specimens for this test are male urethral swab,endocervical swab and liquid based pap specimens, vaginal swabs inAPTIMA transports and first void urine. See online Directory ofServices for test number for rectal and pharyngeal specimens. *[facility] urine (74151)2013-04-25 00:00:00* Test Item Value Reference Range Interpretation Comme nts *[facility] urine (t est code = *[facility] urine ) Negative N *[facility] PPD SKIN TEST INTRADERMAL TB (81493)2013-04-25 00:00:00* Test Item Value Reference Range Interpretation Comme nts *[facility] PPD SKIN TEST INTRADERMAL TB (test code = *[facility] PPD SKIN TEST INTRADERMAL TB) None N PPD placed to ri ght forearm. Lot #[id number] exp 05/2014Patient advised to RTC in 48 hrs for PPD reading.Negative readining on 04/27/2013/pg HIV 1 ANTIBODY SCRN ([id number])2013-04-25 00:00:00* Test Item Value Reference Range Interpretation Comme nts HIV 1/O/2 Abs-Index Value (test code = 01912-9) <1.00 N Index Value: Spe cimen reactivity relative to the negative cutoff. HIV 1/O/2 Abs, Qual (test code = 68637-9) Non Reactive N HIV-2 ANTIBODY (13584)2013-04-25 00:00:00* Test Item Value Reference Range Interpretation Comme nts HIV-2 Ab-O.D. Ratio (test code = HIV-2 Ab-O.D. Ratio) Negative N Interpretation: A repeatedly reactive HIV-2 result may indicateinfection with HIV-2 virus. However, HIV1 positive patients (50-90%)may also react in HIV-2 EIA. Reactive results should be investigatedby supplemental tests. Positive HIV-2 results should be consideredindicative of infection if HIV-1 has been ruled out with negativeHIV-1 testing, patient has epidemiological risk factors for HIV-2, andsupplemental tests such as HIV-2 Immunoblot (Investigational use only)show the presence of HIV-2 specific viral bands. HSVIG+HSVIIG+HSVIgM (54139)2013-04-25 00:00:00* Test Item Value Reference Range Interpretation Comme nts HSV, IgM I/II Combination (test code = HSV, IgM I/II Combination) 2.11 {Ratio} 0.00-0.90 A Negative <0.91 Equivocal 0.91 - 1.09 Positive >1.09 HSV 1 IgG, Type Spec (test code = HSV 1 IgG, Type Spec) 5.97 {index} 0.00-0.90 A Negative <0.91 Equivocal 0.91 - 1.09 Positive >1.09 . Note: Negative indicates no antibodies detected to HSV-1. Equivocal may suggest early infection. If clinically appropriate, retest at later date. Positive indicates antibodies detected to HSV-1; coinfection with HSV-2 cannot be excluded without type specific testing. HSV 2 IgG, Type Spec (test code = HSV 2 IgG, Type Spec) <0.91 0.00-0.90 N Negative <0.91 Equivocal 0.91 - 1.09 Positive >1.09 . Note: Negative indicates no antibodies detected to HSV-2. Equivocal may suggest early infection. If clinically appropriate, retest at later date. Positive indicates antibodies detected to HSV-2; coinfection with HSV-1 cannot be excluded without type specific testing. RPR (RAPID PLASMA REAGIN) ([id number])2013-04-25 00:00:00* Test Item Value Reference Range Interpretation Comme nts RPR (test code = 50435-3) Non Reactive N HEPATITIS C ANTIBODY (39418)2013-04-25 00:00:00* Test Item Value Reference Range Interpretation Comme nts Hep C Virus Ab (test code = Hep C Virus Ab) <0.1 0.0-0.9 N Negative: < 0.8 Indeterminate 0.8 - 0.9 Positive: > 0.9 . In order to reduce the incidence of a false positive result, the CDC recommends that all s/co ratios between 1.0 and 10.9 be confirmed by a more specific supplemental or PCR testing. [facility] offers HCV Ab w/Reflex to Verification test #[id number]. Chlamydia/GC Amplification(APTIMA SWAB) (69973)2013-04-25 00:00:00* Test Item Value Reference Range Interpretation Comme nts Chlamydia trachomatis, ANDRES (test code = 90033-7) Negative N Neisseria gonorrhoeae, ANDRES (test code = 83229-6) Negative N Please note: (test code = Please note:) [facility] N Acceptable specimens for this test are male urethral swab,endocervical swab and liquid based pap specimens, vaginal swabs inAPTIMA transports and first void urine. See online Directory ofServices for test number for rectal and pharyngeal specimens. *[facility] urine (22981)2013-04-25 00:00:00* Test Item Value Reference Range Interpretation Comme nts *[facility] urine (t est code = *[facility] urine ) Negative N *[facility] PPD SKIN TEST INTRADERMAL TB (11543)2013-04-25 00:00:00* Test Item Value Reference Range Interpretation Comme nts *[facility] PPD SKIN TEST INTRADERMAL TB (test code = *[facility] PPD SKIN TEST INTRADERMAL TB) None N PPD placed to ri ght forearm. Lot #[id number] exp 05/2014Patient advised to RTC in 48 hrs for PPD reading.Negative readining on 04/27/2013/pg HIV 1 ANTIBODY SCRN (95002)2013-04-25 00:00:00* Test Item Value Reference Range Interpretation Comme nts HIV 1/O/2 Abs-Index Value (test code = 78905-7) <1.00 N Index Value: Spe cimen reactivity relative to the negative cutoff. HIV 1/O/2 Abs, Qual (test code = 29111-8) Non Reactive N HIV-2 ANTIBODY (50582)2013-04-25 00:00:00* Test Item Value Reference Range Interpretation Comme nts HIV-2 Ab-O.D. Ratio (test code = HIV-2 Ab-O.D. Ratio) Negative N Interpretation: A repeatedly reactive HIV-2 result may indicateinfection with HIV-2 virus. However, HIV1 positive patients (50-90%)may also react in HIV-2 EIA. Reactive results should be investigatedby supplemental tests. Positive HIV-2 results should be consideredindicative of infection if HIV-1 has been ruled out with negativeHIV-1 testing, patient has epidemiological risk factors for HIV-2, andsupplemental tests such as HIV-2 Immunoblot (Investigational use only)show the presence of HIV-2 specific viral bands. HSVIG+HSVIIG+HSVIgM (09613)2013-04-25 00:00:00* Test Item Value Reference Range Interpretation Comme nts HSV, IgM I/II Combination (test code = HSV, IgM I/II Combination) 2.11 {Ratio} 0.00-0.90 A Negative <0.91 Equivocal 0.91 - 1.09 Positive >1.09 HSV 1 IgG, Type Spec (test code = HSV 1 IgG, Type Spec) 5.97 {index} 0.00-0.90 A Negative <0.91 Equivocal 0.91 - 1.09 Positive >1.09 . Note: Negative indicates no antibodies detected to HSV-1. Equivocal may suggest early infection. If clinically appropriate, retest at later date. Positive indicates antibodies detected to HSV-1; coinfection with HSV-2 cannot be excluded without type specific testing. HSV 2 IgG, Type Spec (test code = HSV 2 IgG, Type Spec) <0.91 0.00-0.90 N Negative <0.91 Equivocal 0.91 - 1.09 Positive >1.09 . Note: Negative indicates no antibodies detected to HSV-2. Equivocal may suggest early infection. If clinically appropriate, retest at later date. Positive indicates antibodies detected to HSV-2; coinfection with HSV-1 cannot be excluded without type specific testing. RPR (RAPID PLASMA REAGIN) ([id number])2013-04-25 00:00:00* Test Item Value Reference Range Interpretation Comme nts RPR (test code = 80958-2) Non Reactive N HEPATITIS C ANTIBODY (07434)2013-04-25 00:00:00* Test Item Value Reference Range Interpretation Comme nts Hep C Virus Ab (test code = Hep C Virus Ab) <0.1 0.0-0.9 N Negative: < 0.8 Indeterminate 0.8 - 0.9 Positive: > 0.9 . In order to reduce the incidence of a false positive result, the CDC recommends that all s/co ratios between 1.0 and 10.9 be confirmed by a more specific supplemental or PCR testing. [facility] offers HCV Ab w/Reflex to Verification test #[id number]. Chlamydia/GC Amplification(APTIMA SWAB) (57168)2013-04-25 00:00:00* Test Item Value Reference Range Interpretation Comme nts Chlamydia trachomatis, ANDRES (test code = 49741-2) Negative N Neisseria gonorrhoeae, ANDRES (test code = 95494-5) Negative N Please note: (test code = Please note:) [facility] N Acceptable specimens for this test are male urethral swab,endocervical swab and liquid based pap specimens, vaginal swabs inAPTIMA transports and first void urine. See online Directory ofServices for test number for rectal and pharyngeal specimens. *[facility] urine (64336)2013-04-25 00:00:00* Test Item Value Reference Range Interpretation Comme nts *[facility] urine (t est code = *[facility] urine ) Negative N *[facility] PPD SKIN TEST INTRADERMAL TB (87442)2013-04-25 00:00:00* Test Item Value Reference Range Interpretation Comme nts *[facility] PPD SKIN TEST INTRADERMAL TB (test code = *[facility] PPD SKIN TEST INTRADERMAL TB) None N PPD placed to ri ght forearm. Lot #[id number] exp 05/2014Patient advised to RTC in 48 hrs for PPD reading.Negative readining on 04/27/2013/pg HIV 1 ANTIBODY SCRN (43593)2013-04-25 00:00:00* Test Item Value Reference Range Interpretation Comme nts HIV 1/O/2 Abs-Index Value (test code = 42728-8) <1.00 N Index Value: Spe cimen reactivity relative to the negative cutoff. HIV 1/O/2 Abs, Qual (test code = 29874-1) Non Reactive N HIV-2 ANTIBODY (96818)2013-04-25 00:00:00* Test Item Value Reference Range Interpretation Comme nts HIV-2 Ab-O.D. Ratio (test code = HIV-2 Ab-O.D. Ratio) Negative N Interpretation: A repeatedly reactive HIV-2 result may indicateinfection with HIV-2 virus. However, HIV1 positive patients (50-90%)may also react in HIV-2 EIA. Reactive results should be investigatedby supplemental tests. Positive HIV-2 results should be consideredindicative of infection if HIV-1 has been ruled out with negativeHIV-1 testing, patient has epidemiological risk factors for HIV-2, andsupplemental tests such as HIV-2 Immunoblot (Investigational use only)show the presence of HIV-2 specific viral bands. HSVIG+HSVIIG+HSVIgM (08528)2013-04-25 00:00:00* Test Item Value Reference Range Interpretation Comme nts HSV, IgM I/II Combination (test code = HSV, IgM I/II Combination) 2.11 {Ratio} 0.00-0.90 A Negative <0.91 Equivocal 0.91 - 1.09 Positive >1.09 HSV 1 IgG, Type Spec (test code = HSV 1 IgG, Type Spec) 5.97 {index} 0.00-0.90 A Negative <0.91 Equivocal 0.91 - 1.09 Positive >1.09 . Note: Negative indicates no antibodies detected to HSV-1. Equivocal may suggest early infection. If clinically appropriate, retest at later date. Positive indicates antibodies detected to HSV-1; coinfection with HSV-2 cannot be excluded without type specific testing. HSV 2 IgG, Type Spec (test code = HSV 2 IgG, Type Spec) <0.91 0.00-0.90 N Negative <0.91 Equivocal 0.91 - 1.09 Positive >1.09 . Note: Negative indicates no antibodies detected to HSV-2. Equivocal may suggest early infection. If clinically appropriate, retest at later date. Positive indicates antibodies detected to HSV-2; coinfection with HSV-1 cannot be excluded without type specific testing. RPR (RAPID PLASMA REAGIN) (92078)2013-04-25 00:00:00* Test Item Value Reference Range Interpretation Comme nts RPR (test code = 29857-7) Non Reactive N HEPATITIS C ANTIBODY (25080)2013-04-25 00:00:00* Test Item Value Reference Range Interpretation Comme nts Hep C Virus Ab (test code = Hep C Virus Ab) <0.1 0.0-0.9 N Negative: < 0.8 Indeterminate 0.8 - 0.9 Positive: > 0.9 . In order to reduce the incidence of a false positive result, the CDC recommends that all s/co ratios between 1.0 and 10.9 be confirmed by a more specific supplemental or PCR testing. [facility] offers HCV Ab w/Reflex to Verification test #[id number]. Chlamydia/GC Amplification(APTIMA SWAB) (29110)2013-04-25 00:00:00* Test Item Value Reference Range Interpretation Comme nts Chlamydia trachomatis, ANDRES (test code = 15104-3) Negative N Neisseria gonorrhoeae, ANDRES (test code = 09448-7) Negative N Please note: (test code = Please note:) [facility] N Acceptable specimens for this test are male urethral swab,endocervical swab and liquid based pap specimens, vaginal swabs inAPTIMA transports and first void urine. See online Directory ofServices for test number for rectal and pharyngeal specimens. *[facility] (70750)2013-04-25 00:00:00* Test Item Value Reference Range Interpretation Comme nts *[facility] urine (t est code = *[facility] urine ) Negative N *[facility] PPD SKIN TEST INTRADERMAL TB (28496)2013-04-25 00:00:00* Test Item Value Reference Range Interpretation Comme nts *[facility] PPD SKIN TEST INTRADERMAL TB (test code = *[facility] PPD SKIN TEST INTRADERMAL TB) None N PPD placed to ri ght forearm. Lot #[id number] exp 05/2014Patient advised to RTC in 48 hrs for PPD reading.Negative readining on 04/27/2013/pg HIV 1 ANTIBODY SCRN (33727)2013-04-25 00:00:00* Test Item Value Reference Range Interpretation Comme nts HIV 1/O/2 Abs-Index Value (test code = 53265-9) <1.00 N Index Value: Spe cimen reactivity relative to the negative cutoff. HIV 1/O/2 Abs, Qual (test code = 04839-3) Non Reactive N HIV-2 ANTIBODY (64609)2013-04-25 00:00:00* Test Item Value Reference Range Interpretation Comme nts HIV-2 Ab-O.D. Ratio (test code = HIV-2 Ab-O.D. Ratio) Negative N Interpretation: A repeatedly reactive HIV-2 result may indicateinfection with HIV-2 virus. However, HIV1 positive patients (50-90%)may also react in HIV-2 EIA. Reactive results should be investigatedby supplemental tests. Positive HIV-2 results should be consideredindicative of infection if HIV-1 has been ruled out with negativeHIV-1 testing, patient has epidemiological risk factors for HIV-2, andsupplemental tests such as HIV-2 Immunoblot (Investigational use only)show the presence of HIV-2 specific viral bands. HSVIG+HSVIIG+HSVIgM (20304)2013-04-25 00:00:00* Test Item Value Reference Range Interpretation Comme nts HSV, IgM I/II Combination (test code = HSV, IgM I/II Combination) 2.11 {Ratio} 0.00-0.90 A Negative <0.91 Equivocal 0.91 - 1.09 Positive >1.09 HSV 1 IgG, Type Spec (test code = HSV 1 IgG, Type Spec) 5.97 {index} 0.00-0.90 A Negative <0.91 Equivocal 0.91 - 1.09 Positive >1.09 . Note: Negative indicates no antibodies detected to HSV-1. Equivocal may suggest early infection. If clinically appropriate, retest at later date. Positive indicates antibodies detected to HSV-1; coinfection with HSV-2 cannot be excluded without type specific testing. HSV 2 IgG, Type Spec (test code = HSV 2 IgG, Type Spec) <0.91 0.00-0.90 N Negative <0.91 Equivocal 0.91 - 1.09 Positive >1.09 . Note: Negative indicates no antibodies detected to HSV-2. Equivocal may suggest early infection. If clinically appropriate, retest at later date. Positive indicates antibodies detected to HSV-2; coinfection with HSV-1 cannot be excluded without type specific testing. RPR (RAPID PLASMA REAGIN) ([id number])2013-04-25 00:00:00* Test Item Value Reference Range Interpretation Comme nts RPR (test code = 16568-5) Non Reactive N HEPATITIS C ANTIBODY (17527)2013-04-25 00:00:00* Test Item Value Reference Range Interpretation Comme nts Hep C Virus Ab (test code = Hep C Virus Ab) <0.1 0.0-0.9 N Negative: < 0.8 Indeterminate 0.8 - 0.9 Positive: > 0.9 . In order to reduce the incidence of a false positive result, the CDC recommends that all s/co ratios between 1.0 and 10.9 be confirmed by a more specific supplemental or PCR testing. [facility] offers HCV Ab w/Reflex to Verification test #[id number]. Chlamydia/GC Amplification(APTIMA SWAB) (06139)2013-04-25 00:00:00* Test Item Value Reference Range Interpretation Comme nts Chlamydia trachomatis, ANDRES (test code = 75506-1) Negative N Neisseria gonorrhoeae, ANDRES (test code = 37790-1) Negative N Please note: (test code = Please note:) [facility] N Acceptable specimens for this test are male urethral swab,endocervical swab and liquid based pap specimens, vaginal swabs inAPTIMA transports and first void urine. See online Directory ofServices for test number for rectal and pharyngeal specimens. *[facility] (83213)2013-04-25 00:00:00* Test Item Value Reference Range Interpretation Comme nts *[facility] urine (t est code = *[facility] urine ) Negative N *[facility] PPD SKIN TEST INTRADERMAL TB (81990)2013-04-25 00:00:00* Test Item Value Reference Range Interpretation Comme nts *[facility] PPD SKIN TEST INTRADERMAL TB (test code = *[facility] PPD SKIN TEST INTRADERMAL TB) None N PPD placed to ri ght forearm. Lot #[id number] exp 05/2014Patient advised to RTC in 48 hrs for PPD reading.Negative readining on 04/27/2013/pg HIV 1 ANTIBODY SCRN (91556)2013-04-25 00:00:00* Test Item Value Reference Range Interpretation Comme nts HIV 1/O/2 Abs-Index Value (test code = 27798-3) <1.00 N Index Value: Spe cimen reactivity relative to the negative cutoff. HIV 1/O/2 Abs, Qual (test code = 60351-4) Non Reactive N HIV-2 ANTIBODY (55893)2013-04-25 00:00:00* Test Item Value Reference Range Interpretation Comme nts HIV-2 Ab-O.D. Ratio (test code = HIV-2 Ab-O.D. Ratio) Negative N Interpretation: A repeatedly reactive HIV-2 result may indicateinfection with HIV-2 virus. However, HIV1 positive patients (50-90%)may also react in HIV-2 EIA. Reactive results should be investigatedby supplemental tests. Positive HIV-2 results should be consideredindicative of infection if HIV-1 has been ruled out with negativeHIV-1 testing, patient has epidemiological risk factors for HIV-2, andsupplemental tests such as HIV-2 Immunoblot (Investigational use only)show the presence of HIV-2 specific viral bands. HSVIG+HSVIIG+HSVIgM (28530)2013-04-25 00:00:00* Test Item Value Reference Range Interpretation Comme nts HSV, IgM I/II Combination (test code = HSV, IgM I/II Combination) 2.11 {Ratio} 0.00-0.90 A Negative <0.91 Equivocal 0.91 - 1.09 Positive >1.09 HSV 1 IgG, Type Spec (test code = HSV 1 IgG, Type Spec) 5.97 {index} 0.00-0.90 A Negative <0.91 Equivocal 0.91 - 1.09 Positive >1.09 . Note: Negative indicates no antibodies detected to HSV-1. Equivocal may suggest early infection. If clinically appropriate, retest at later date. Positive indicates antibodies detected to HSV-1; coinfection with HSV-2 cannot be excluded without type specific testing. HSV 2 IgG, Type Spec (test code = HSV 2 IgG, Type Spec) <0.91 0.00-0.90 N Negative <0.91 Equivocal 0.91 - 1.09 Positive >1.09 . Note: Negative indicates no antibodies detected to HSV-2. Equivocal may suggest early infection. If clinically appropriate, retest at later date. Positive indicates antibodies detected to HSV-2; coinfection with HSV-1 cannot be excluded without type specific testing. RPR (RAPID PLASMA REAGIN) ([id number])2013-04-25 00:00:00* Test Item Value Reference Range Interpretation Comme nts RPR (test code = 60967-2) Non Reactive N HEPATITIS C ANTIBODY (89660)2013-04-25 00:00:00* Test Item Value Reference Range Interpretation Comme nts Hep C Virus Ab (test code = Hep C Virus Ab) <0.1 0.0-0.9 N Negative: < 0.8 Indeterminate 0.8 - 0.9 Positive: > 0.9 . In order to reduce the incidence of a false positive result, the CDC recommends that all s/co ratios between 1.0 and 10.9 be confirmed by a more specific supplemental or PCR testing. [facility] offers HCV Ab w/Reflex to Verification test #[id number]. Chlamydia/GC Amplification(APTIMA SWAB) (62373)2013-04-25 00:00:00* Test Item Value Reference Range Interpretation Comme nts Chlamydia trachomatis, ANDRES (test code = 34254-8) Negative N Neisseria gonorrhoeae, ANDRES (test code = 48797-3) Negative N Please note: (test code = Please note:) [facility] N Acceptable specimens for this test are male urethral swab,endocervical swab and liquid based pap specimens, vaginal swabs inAPTIMA transports and first void urine. See online Directory ofServices for test number for rectal and pharyngeal specimens. *[facility] urine (08421)2013-04-25 00:00:00* Test Item Value Reference Range Interpretation Comme nts *[facility] urine (t est code = *[facility] urine ) Negative N *[facility] PPD SKIN TEST INTRADERMAL TB (18900)2013-04-25 00:00:00* Test Item Value Reference Range Interpretation Comme nts *[facility] PPD SKIN TEST INTRADERMAL TB (test code = *[facility] PPD SKIN TEST INTRADERMAL TB) None N PPD placed to ri ght forearm. Lot #[id number] exp 05/2014Patient advised to RTC in 48 hrs for PPD reading.Negative readining on 04/27/2013/pg HIV 1 ANTIBODY SCRN (19594)2013-04-25 00:00:00* Test Item Value Reference Range Interpretation Comme nts HIV 1/O/2 Abs-Index Value (test code = 69353-7) <1.00 N Index Value: Spe cimen reactivity relative to the negative cutoff. HIV 1/O/2 Abs, Qual (test code = 01398-0) Non Reactive N HIV-2 ANTIBODY (17260)2013-04-25 00:00:00* Test Item Value Reference Range Interpretation Comme [facility] HIV-2 Ab-O.D. Ratio (test code = HIV-2 Ab-O.D. Ratio) Negative N Interpretation: A repeatedly reactive HIV-2 result may indicateinfection with HIV-2 virus. However, HIV1 positive patients (50-90%)may also react in HIV-2 EIA. Reactive results should be investigatedby supplemental tests. Positive HIV-2 results should be consideredindicative of infection if HIV-1 has been ruled out with negativeHIV-1 testing, patient has epidemiological risk factors for HIV-2, andsupplemental tests such as HIV-2 Immunoblot (Investigational use only)show the presence of HIV-2 specific viral bands. HSVIG+HSVIIG+HSVIgM (63184)2013-04-25 00:00:00* Test Item Value Reference Range Interpretation Comme [facility] HSV, IgM I/II Combination (test code = HSV, IgM I/II Combination) 2.11 {Ratio} 0.00-0.90 A Negative <0.91 Equivocal 0.91 - 1.09 Positive >1.09 HSV 1 IgG, Type Spec (test code = HSV 1 IgG, Type Spec) 5.97 {index} 0.00-0.90 A Negative <0.91 Equivocal 0.91 - 1.09 Positive >1.09 . Note: Negative indicates no antibodies detected to HSV-1. Equivocal may suggest early infection. If clinically appropriate, retest at later date. Positive indicates antibodies detected to HSV-1; coinfection with HSV-2 cannot be excluded without type specific testing. HSV 2 IgG, Type Spec (test code = HSV 2 IgG, Type Spec) <0.91 0.00-0.90 N Negative <0.91 Equivocal 0.91 - 1.09 Positive >1.09 . Note: Negative indicates no antibodies detected to HSV-2. Equivocal may suggest early infection. If clinically appropriate, retest at later date. Positive indicates antibodies detected to HSV-2; coinfection with HSV-1 cannot be excluded without type specific testing. RPR (RAPID PLASMA REAGIN) ([id number])2013-04-25 00:00:00* Test Item Value Reference Range Interpretation Comme nts RPR (test code = 02435-2) Non Reactive N HEPATITIS C ANTIBODY (47803)2013-04-25 00:00:00* Test Item Value Reference Range Interpretation Comme nts Hep C Virus Ab (test code = Hep C Virus Ab) <0.1 0.0-0.9 N Negative: < 0.8 Indeterminate 0.8 - 0.9 Positive: > 0.9 . In order to reduce the incidence of a false positive result, the CDC recommends that all s/co ratios between 1.0 and 10.9 be confirmed by a more specific supplemental or PCR testing. [facility] offers HCV Ab w/Reflex to Verification test #[id number]. Chlamydia/GC Amplification(APTIMA SWAB) (27242)2013-04-25 00:00:00* Test Item Value Reference Range Interpretation Comme nts Chlamydia trachomatis, ANDRES (test code = 80457-4) Negative N Neisseria gonorrhoeae, ANDRES (test code = 49522-3) Negative N Please note: (test code = Please note:) [facility] N Acceptable specimens for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 03/10/20 1823 Interpretation Diagnostics Lab Results Interpretation Lab Imaging Statement Laboratory radiographic studies reviewed and considered in the medical decision-making. Re-Evaluation MDM Re-Evaluation/Progress Re-Evaluation/Progress 1 Text/Dict Note Assumed care from Dr. Cook. Podiatry resident Dr. Guillen in room performing incision and drainage. We will follow-up x-ray results and recommendations from podiatry. Time of Re-Eval 1930 Re-Eval Status Improved Re-Evaluation/Progress 2 Text/Dict Note X-rays show no fractures with no obvious foreign body. Spoke podiatry resident who performed incision and drainage and denies any large foreign bodies. Lab work is consistent with cellulitis. Patient refuses admission and is adamant that she will go home. Discussed management including oral antibiotics and close follow-up to ensure improvement of symptoms. Will discharge patient with prescription for clindamycin and ibuprofen. Patient will follow-up with podiatry Dr. Samantha Mcfarland in 1 week. ER return precautions for worsening symptoms discussed extensively. Time of Re-Eval 2020 Re-Eval Status Improved Patient Discharge Departure Vital Signs/Condition Condition Stable Disposition Decision Discharge )( Discharged to Home Yes )( Time 2020 )( Date 03/10/20 Discharge/Care Plan Counseled Regarding Diagnosis, Lab results, Imaging studies, Prescriptions, Need for follow-up, When to return to ED Prescriptions Clindamycin and Iburpofen Prescriptions Reviewed Risks, Benefits, Alternative treatment Discharge Note I have spoken with the patient and/or caregivers. I have explained the patient's condition, diagnoses and treatment plan based on the information available to me at this time. I have answered the patient's and/or caregiver's questions and addressed any concerns. The patient and/or caregivers have as good an understanding of the patient's diagnosis, condition and treatment plan as can be expected at this point. The vital signs have been stable. The patient's condition is stable and appropriate for discharge from the emergency department. The patient will pursue further outpatient evaluation with the primary care physician or other designated or consulting physician as outlined in the discharge instructions. The patient and/or caregivers are agreeable to this plan of care and follow-up instructions have been explained in detail. The patient and/or caregivers have received these instructions in written format and have expressed an understanding of the discharge instructions. The patient and/or caregivers are aware that any significant change in condition or worsening of symptoms should prompt an immediate return to this or the closest emergency department or a call to 911. Extremity Inj Discharge Note The patient is discharged home with supportive care, a plan for pain control, and follow-up instructions that detail what to expect over the next 48 hours and what symptoms should prompt immediate return to the ED, including the symptoms of compartment syndrome. Follow-up instructions have been explained in detail to the patient, and the instructions have been provided in written format. The patient is comfortable with the plan of care and has expressed an understanding of the discharge instructions. The patient is aware that any significant change in condition or worsening of symptoms should prompt an immediate call to the primary or designated physician. If that is not successful the patient should call or return to this or the closest emergency department or call 911. at 1924 at 2331 RPT #:[id number] END OF REPORT [facility] 2019-11-17 19:06:00 [facility] ([facility]) EMERGENCY PROVIDER REPORT REPORT#:[id number] REPORT STATUS: Signed DATE:11/17/19 TIME: 1905 PATIENT: TRISHA CUADRA UNIT #: [id number] ROOM/BED: AGE: 24 SEX: F PCP PHYS: No Primary or Family Physician SERVICE DT: AUTHOR: Cathryn Cuba ANODISER * ALL edits or amendments must be made on the electronic/computer document * HPI-General Illness Free Text HPI Notes Free Text HPI Notes 24 y/o female presents with complaints of Mastitis. She states that she was seen here about 2 weeks ago but was unable to get her prescription filled because she went to alf. Currently the patient has redness, drainage to the top of the right areola. General Confirmed Patient Yes Patient Type New patient Initial Greet Date/Time 11/17/191903 Presentation Chief Complaint __ (Breast Pain) Hx Obtained From Patient Sudden in Onset? No Onset Occurred Weeks ago Symptom Duration Since onset Location Right Breast Context Immunization Status General All up to date Recent Healthcare Recent testing Similar Sx Previous Yes Review of Systems ROS Statements All systems rev neg except as marked. Complete sys rev neg except as marked. Review of Systems Constitutional Denies: Chills, Fatigue, Fever. Eyes Denies: Blurred bilat, Discharge bilat, Eye pain bilat, Redness bilat, Swelling bilat. Ears/Nose/Throat Denies: Ear drainage bilat, Ear ringing bilat, Hearing loss bilat. Respiratory Denies: Cough, non-productive, Cough, productive, Shortness of breath, Wheezing. Cardiovascular Denies: Chest pain, Edema, Orthopnea. GI Denies: Abdominal pain, Constipation, Diarrhea, Nausea, Vomiting. Female Denies: Dysuria, Flank pain. Musculoskeletal Denies: Back pain, Extremity pain, Extremity swelling. Hematologic Denies: Adenopathy, Bleeding, Bruising, Petechiae. Endocrine Denies: Cold intolerance, Heat intolerance. 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 Complaint CHECK UP Allergies Coded Allergies: No Known Allergies (08/06/17) Home Medications Active Scripts IBUPROFEN (MOTRIN) 800 MG PO TID IBUPROFEN (MOTRIN) 800 MG PO TID #60 TAB Ref 1 Prov: 08/20/17 Reported Medications PNV WITH FE FUMARATE/FA () 1 TAB PO DAILY HYDROcodone/APAP (NORCO 5/325) 1 TAB PO Q4H PRN PRN PAIN / CRAMPS Review of Nursing Notes Rev avail, and agree Pt reports no significant: Past medical history, Past surgical history Additional Medical History none Additional Surgical History none Additional Family History Reviewed and not contributory to the reason for this admission Alcohol Use Social Drug Use Denies recreational drugs Other Social History Local resident, Good social support Physical Exam Vital Signs Vital Signs First Documented: Result Date Time Pulse Ox 98 11/17 1907 B/P 119/65 11/17 1907 B/P Mean 83 11/17 1907 Temp 36.7 11/17 1907 Pulse 99 11/17 1907 Resp 17 11/17 1907 Last Documented: Result Date Time Pulse Ox 98 11/17 1907 B/P 119/65 11/17 1907 B/P Mean 83 11/17 1907 Temp 36.7 11/17 1907 Pulse 99 11/17 1907 Resp 17 11/17 1907 Review of Vital Signs Reviewed, Vital signs normal Physical Exam General/Const General/Const Awake, Alert, Well appearing MS Head Head Normocephalic Eyes Eyes PERRL Ears/Nose/Throat Ears/Nose/Throat Airway patent, Mucous membranes moist, Pharynx NL Resp/Chest Respiratory/Chest Breath sounds NL, Breath sounds = bilat, No respiratory distress, No rales, No rhonchi, No wheezing Cardiovascular Cardiovascular Heart rate NL, Regular rhythm, Heart sounds NL, Cap refill not delayed, Peripheral circulation NL Abdomen/GI Abdomen/GI Soft, Non-tender, No guarding, No rebound MS Back Back Inspection NL, Painless range of motion, Non-tender, No CVA tenderness Skin Text/Dict Notes Redness noted above the right areola Interpretation Diagnostics Point of Care Testing Pulse Oximetry Pulse Ox % 98 On: Room air Interpretation Interpreted by me, Pulse oximetry normal Time 1907 Patient Discharge Departure Vital Signs/Condition Vital Signs First Documented: Result Date Time Pulse Ox 98 11/17 190 B/P 119/65 11/17 1907 B/P Mean 83 11/17 1907 Temp 36.7 11/17 1907 Pulse 99 11/17 1907 Resp 17 11/17 1907 Last Documented: Result Date Time Pulse Ox 98 11/17 1907 B/P 119/65 11/17 1907 B/P Mean 83 11/17 1907 Temp 36.7 11/17 1907 Pulse 99 11/17 1907 Resp 17 11/17 1907 All vital signs available at the time of this entry have been reviewed. Condition Stable Clinical Impression Clinical Impression Primary Impression: Mastitis Time of Impression 1906 Disposition Decision Discharge )( Discharged to Home Yes )( Time 1907 )( Date 11/17/19 Discharge/Care Plan Counseled Regarding Diagnosis, Prescriptions, Need for follow-up, When to return to ED Prescriptions Cephalexin Bactroban Prescriptions Reviewed Risks, Benefits, Alternative treatment Discharge Note I have spoken with the patient and/or caregivers. I have explained the patient's condition, diagnoses and treatment plan based on the information available to me at this time. I have answered the patient's and/or caregiver's questions and addressed any concerns. The patient and/or caregivers have as good an understanding of the patient's diagnosis, condition and treatment plan as can be expected at this point. The vital signs have been stable. The patient's condition is stable and appropriate for discharge from the emergency department. The patient will pursue further outpatient evaluation with the primary care physician or other designated or consulting physician as outlined in the discharge instructions. The patient and/or caregivers are agreeable to this plan of care and follow-up instructions have been explained in detail. The patient and/or caregivers have received these instructions in written format and have expressed an understanding of the discharge instructions. The patient and/or caregivers are aware that any significant change in condition or worsening of symptoms should prompt an immediate return to this or the closest emergency department or a call to 911. Free Text Depart Notes Free Text Depart Notes Plan to discharge discussed with pt. Discussed diagnosis, results, and treatment plan with pt. Pt understands and agrees with the plan. Written educational handouts/material appropriate to the pt's problem provided to the pt. All questions and concerns were addressed. Pt advised to follow-up with PCP in 2-3 days. Stressed importance of follow-up. ER return precautions discussed with pt. Pt advised to return to ED for any new, worsening, persistent, or concerning symptoms. Pt verbalized understanding. at 1032 RPT #:[id number] END OF REPORT [facility] 2019-11-17 19:06:00 [facility] ([facility]) EMERGENCY PROVIDER REPORT REPORT#:[id number] REPORT STATUS: Signed DATE:11/17/19 TIME: 1905 PATIENT: TRISHA CUADRA UNIT #: [id number] ROOM/BED: AGE: 24 SEX: F PCP PHYS: No Primary or Family Physician SERVICE DT: AUTHOR: Cathryn Cuba NP * ALL edits or amendments must be made on the electronic/computer document * Cathryn Cuba 11/17/191905: HPI-General Illness Free Text HPI Notes Free Text HPI Notes 24 y/o female presents with complaints of Mastitis. She states that she was seen here about 2 weeks ago but was unable to get her prescription filled because she went to alf. Currently the patient has redness, drainage to the top of the right areola. General Confirmed Patient Yes Patient Type New patient Presentation Chief Complaint __ (Breast Pain) Hx Obtained From Patient Sudden in Onset? No Onset Occurred Weeks ago Symptom Duration Since onset Location Right Breast Context Immunization Status General All up to date Recent Healthcare Recent testing Similar Sx Previous Yes Review of Systems ROS Statements All systems rev neg except as marked. Complete sys rev neg except as marked. Review of Systems Constitutional Denies: Chills, Fatigue, Fever. Eyes Denies: Blurred bilat, Discharge bilat, Eye pain bilat, Redness bilat, Swelling bilat. Ears/Nose/Throat Denies: Ear drainage bilat, Ear ringing bilat, Hearing loss bilat. Respiratory Denies: Cough, non-productive, Cough, productive, Shortness of breath, Wheezing. Cardiovascular Denies: Chest pain, Edema, Orthopnea. GI Denies: Abdominal pain, Constipation, Diarrhea, Nausea, Vomiting. Female Denies: Dysuria, Flank pain. Musculoskeletal Denies: Back pain, Extremity pain, Extremity swelling. Hematologic Denies: Adenopathy, Bleeding, Bruising, Petechiae. Endocrine Denies: Cold intolerance, Heat intolerance. 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 Complaint CHECK UP Allergies Coded Allergies: No Known Allergies (08/06/17) Home Medications Active Scripts IBUPROFEN (MOTRIN) 800 MG PO TID IBUPROFEN (MOTRIN) 800 MG PO TID #60 TAB Ref 1 Prov: 08/20/17 Reported Medications PNV WITH FE FUMARATE/FA () 1 TAB PO DAILY HYDROcodone/APAP (NORCO 5/325) 1 TAB PO Q4H PRN PRN PAIN / CRAMPS Review of Nursing Notes Rev avail, and agree Pt reports no significant: Past medical history, Past surgical history Additional Medical History none Additional Surgical History none Additional Family History Reviewed and not contributory to the reason for this admission Alcohol Use Social Drug Use Denies recreational drugs Other Social History Local resident, Good social support Physical Exam Vital Signs Vital Signs First Documented: Result Date Time Pulse Ox 98 11/17 1907 B/P 119/65 11/17 1907 B/P Mean 83 11/17 1907 Temp 36.7 11/17 1907 Pulse 99 11/17 1907 Resp 17 11/17 1907 Last Documented: Result Date Time Pulse Ox 98 11/17 1907 B/P 119/65 11/17 1907 B/P Mean 83 11/17 1907 Temp 36.7 11/17 1907 Pulse 99 11/17 1907 Resp 17 11/17 1907 Review of Vital Signs Reviewed, Vital signs normal Physical Exam General/Const General/Const Awake, Alert, Well appearing MS Head Head Normocephalic Eyes Eyes PERRL Ears/Nose/Throat Ears/Nose/Throat Airway patent, Mucous membranes moist, Pharynx NL Resp/Chest Respiratory/Chest Breath sounds NL, Breath sounds = bilat, No respiratory distress, No rales, No rhonchi, No wheezing Cardiovascular Cardiovascular Heart rate NL, Regular rhythm, Heart sounds NL, Cap refill not delayed, Peripheral circulation NL Abdomen/GI Abdomen/GI Soft, Non-tender, No guarding, No rebound MS Back Back Inspection NL, Painless range of motion, Non-tender, No CVA tenderness Skin Text/Dict Notes Redness noted above the right areola Interpretation Diagnostics Point of Care Testing Pulse Oximetry Pulse Ox % 98 On: Room air Interpretation Interpreted by me, Pulse oximetry normal Time 1907 Patient Discharge Departure Vital Signs/Condition Vital Signs First Documented: Result Date Time Pulse Ox 98 11/17 1907 B/P 119/65 11/17 1907 B/P Mean 83 11/17 1907 Temp 36.7 11/17 1907 Pulse 99 11/17 1907 Resp 17 11/17 1907 Last Documented: Result Date Time Pulse Ox 98 11/17 1907 B/P 119/65 11/17 1907 B/P Mean 83 11/17 1907 Temp 36.7 11/17 1907 Pulse 99 11/17 1907 Resp 17 11/17 1907 All vital signs available at the time of this entry have been reviewed. Condition Stable Clinical Impression Clinical Impression Primary Impression: Mastitis Time of Impression 1906 Disposition Decision Discharge )( Discharged to Home Yes )( Time 1907 )( Date 11/17/19 Discharge/Care Plan Counseled Regarding Diagnosis, Prescriptions, Need for follow-up, When to return to ED Prescriptions Cephalexin Bactroban Prescriptions Reviewed Risks, Benefits, Alternative treatment Discharge Note I have spoken with the patient and/or caregivers. I have explained the patient's condition, diagnoses and treatment plan based on the information available to me at this time. I have answered the patient's and/or caregiver's questions and addressed any concerns. The patient and/or caregivers have as good an understanding of the patient's diagnosis, condition and treatment plan as can be expected at this point. The vital signs have been stable. The patient's condition is stable and appropriate for discharge from the emergency department. The patient will pursue further outpatient evaluation with the primary care physician or other designated or consulting physician as outlined in the discharge instructions. The patient and/or caregivers are agreeable to this plan of care and follow-up instructions have been explained in detail. The patient and/or caregivers have received these instructions in written format and have expressed an understanding of the discharge instructions. The patient and/or caregivers are aware that any significant change in condition or worsening of symptoms should prompt an immediate return to this or the closest emergency department or a call to 911. Free Text Depart Notes Free Text Depart Notes Plan to discharge discussed with pt. Discussed diagnosis, results, and treatment plan with pt. Pt understands and agrees with the plan. Written educational handouts/material appropriate to the pt's problem provided to the pt. All questions and concerns were addressed. Pt advised to follow-up with PCP in 2-3 days. Stressed importance of follow-up. ER return precautions discussed with pt. Pt advised to return to ED for any new, worsening, persistent, or concerning symptoms. Pt verbalized understanding. Kimberly Delgado 11/19/19 1809: HPI-General Illness General Initial Greet Date/Time 11/17/19 1904 Patient Discharge Departure Supervising Physician Note Tala Saw Pt Alone I have reviewed the PA/ANODISER's note and plan of care. I was available for consultation as needed at all times during the patient's visit in the emergency department. I agree with the clinical impression, plan and disposition. at 1032 at 1809 RPT #:[id number] END OF REPORT [facility] 2019-11-10 17:33:00 [facility] Progress Note REPORT#:[id number] REPORT STATUS: Signed DATE:11/10/19 TIME: 173 PATIENT: TRISHA CUADRA UNIT #: [id number] ROOM/BED: : 97 AGE: 24 SEX: F ATTEND: Ganesh Siegel MD ADM DT: AUTHOR: Jacob Swenson [facility] * ALL edits or amendments must be made on the electronic/computer document * Pharmacy Note Treatment plan: cont current regimen/dose Rationale: TRISHA CUADRA is a 24 year old patient whom was seen in the Emergency Room on for BOIL. While in the ER, a WOUND sample was collected which grew S. AUREUS. Patient was prescribed AUGMENTIN at discharge which is appropriate therapy per susceptibility panel. No further action is needed. at 1734 RPT #:[id number] END OF REPORT [facility] 2019-11-05 18:49:00 [facility] DT Operative Note REPORT#:[id number] REPORT STATUS: Signed DATE:11/05/19 TIME: 184 PATIENT: TRISHA CUADRA UNIT #: [id number] ROOM/BED: : 97 AGE: 24 SEX: F ATTEND: Ganesh Siegel MD ADM DT: AUTHOR: Harvey Reed MD * ALL edits or amendments must be made on the electronic/computer document * Operative Report Operative Note Note: Incision and drainage of right breast abscess Date: 11/05/2019 Attending Physician: Harvey Reed MD Primary Surgeon: Harvey Reed MD Associate Professor Of Library Media: None Preprocedure Diagnosis: Right Complicated Breast Abscess Postprocedure Diagnosis: Right Complicated Breast Abscess Procedure Performed: Incision and drainage of complicated right breast abscess Indications: The patient is a 24-year-old female with a large, complicated right breast abscess. She is therefore undergoing incision and drainage of this right breast abscess at the bedside. Findings: Foul-smelling, large amount of brown purulent material. Procedure in Detail: The patient was in the emergency department on a lounger. The patient received 50 mcg of fentanyl IV. She received a dose of Unasyn intravenously for antibiotic prophylaxis. Consent was obtained and verified. A time out was called per our protocols. 2 % lidocaine with epinephrine was used to infiltrate the dermis prior to incision. A 1 inch periareolar incision was created from about the 10 o'clock position to the 2 o'clock position on the right breast. Purulent material came pouring out with a very foul smell. Aerobic culture swabs were taken. The purulent material was expressed. The surgeon's finger was inserted to break up loculations. The wound was cleansed with saline irrigation. More lidocaine with epinephrine was injected into the deeper tissues for packing. Iodoform half-inch strip packing was placed into the wound. The wound was dressed appropriately. The patient tolerated the procedure well. Estimated Blood Loss: < 5 mL Specimens: Aerobic culture swabs Drain(s): None Attestation Statement: I was present for and conducted this entire procedure. Sponge, instrument, and needle counts were correct at the end of the case. at 1854 RPT #[id number] END OF REPORT [facility] 2019-11-05 16:35:00 [facility] ([facility] EMERGENCY PROVIDER REPORT REPORT#:[id number] REPORT STATUS: Signed DATE:11/05/19 TIME: 1635 PATIENT: TRISHA CUADRA UNIT #: [id number] ROOM/BED: AGE: 24 SEX: F PCP PHYS: No Primary or Family Physician SERVICE AUTHOR: Adrianna Kurtz NP * ALL edits or amendments must be made on the electronic/computer document * HPI-Rash/Abscess/Cellulitis General Confirmed Patient Yes Patient Type New patient Initial Greet Date/Time 11/05/19 1630 PCP NONE Presentation Chief Complaint Abscess, RIGHT BREAST Hx Obtained From Patient Onset Occurred Yesterday Symptom Duration Since onset, Constant Progression since Onset Constant Location RIGHT BREAST Quality Painful Severity: Onset Mild Severity: Current Severe Associated with Denies: Abdominal pain, Arthralgia, Arthritis, Bleeding, Bruising, Conjunctivitis, Dizziness, Facial swelling, Fever, Headache, Joint pain, Leg swelling, Mouth lesions, Myalgia, Nausea, Red streaking, Shaking chills, Skin sloughing, Sore throat, Upper resp infection, Vomiting, Weakness. Exacerbated by Palpation Context Recent Healthcare No recent doctor visit, No recent hospitalization Free Text HPI Notes Free Text HPI Notes PT REPORTS HAD A VAGINAL DELIVERY THREE WEEKS AGO AND THEN WAS ARRESTED AND IN [facility] SKILLED NURSING. SHE REPORTS SHE GOT OUT SEVERAL DAYS AGO AND HAS NOT BREAST FED HER CHILD AND HER CHILD IS NOT IN HER CUSTODY. REPORTS STARTED HAVING RIGHT NIPPLE/ BREAST PAIN WITH SWELLING LAST NIGHT THAT HAS WORSENED TODAY. Portions of this section were scribed by Justin Gupta on 11/05/19 at 1746 Review of Systems ROS Statements All systems rev neg except as marked. Basic Review of Systems Basic ROS : No dysuria/frequency (Q), HEM: No bleeding/bruising, NEURO: No change MS, NEURO: No focal deficit, PSYCH: NL thought content Focused Review of Systems Constitutional Denies: Chills, Fatigue, Fever, Lethargy, Weakness - generalized. Eyes Denies: Blurred bilat, Eye pain bilat, Redness bilat, Visual loss bilat. Ears/Nose/Throat Denies: Earache bilat, Nasal congestion, Sore throat. Respiratory Denies: Cough, non-productive, Cough, productive, Dyspnea on exertion, Shortness of breath. Cardiovascular Denies: Chest pain, Dyspnea on exertion, Syncope. GI Denies: Abdominal pain, Constipation, Diarrhea, Nausea, Vomiting. Musculoskeletal Denies: Back pain, Extremity pain, Neck pain, Thoracic pain. Skin Reports: Abscess, Erythema, Swelling. Allergy/Immun Denies: Allergic reaction, Hives, Itching. Additional Review of Systems Female Denies: Dysuria, Flank pain, Hematuria, , Urinary frequency, Urinary urgency. Hematologic Denies: Bleeding, Bruising. Psychiatric Denies: Agitation, Anxiety, Stress. 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 Allergies Coded Allergies: No Known Allergies (08/06/17) Home Medications Active Scripts IBUPROFEN (MOTRIN) 800 MG PO TID IBUPROFEN (MOTRIN) 800 MG PO TID #60 TAB Ref 1 Prov: 08/20/17 Reported Medications PNV WITH FE FUMARATE/FA () 1 TAB PO DAILY HYDROcodone/APAP (NORCO 5/325) 1 TAB PO Q4H PRN PRN PAIN / CRAMPS Review of Nursing Notes Rev avail, and agree Additional Medical History none Additional Surgical History none Drug Use Denies recreational drugs Smoking status for patients 13 years old or older: Current every day smoker Other Social History Local resident, Good social support Ambulatory Status Independent Physical Exam Vital Signs Vital Signs First Documented: Result Date Time Pulse Ox 98 11/05 1632 B/P 115/74 11/05 1632 B/P Mean 87 11/05 1632 O2 Delivery Room air 11/05 163 Temp 36.4 11/05 1632 Pulse 110 11/05 1632 Resp 16 11/05 1632 Last Documented: Result Date Time Pulse Ox 99 11/05 1904 B/P 114/72 11/05 190 B/P Mean 86 11/05 190 O2 Delivery Room air 11/05 190 Temp 36.6 11/05 190 Pulse 98 11/05 190 Resp 16 11/05 190 Review of Vital Signs Reviewed Basic Physical Exam Basic PE HEAD: Atraumatic/NC, EYES: PERRL, conj clear, ENT: Membranes moist, NECK: Supple, RESP: No resp distress, CV: Reg rate rhythm, ABD: Soft/non- tender, EXT: No gross abnormality, NEURO: alert oriented, NEURO: gross movement NL, PSYCH: NL thought content Focused PE General/Const General/Const Awake, Alert, No acute distress, Well appearing, Well developed , Well hydrated, Well nourished, Cooperative, Not toxic appearing Ears/Nose/Throat Ears/Nose/Throat Atraumatic, Airway patent, Mucous membranes moist, No facial swelling Resp/Chest Respiratory/Chest Breath sounds NL, Breath sounds = bilat, No respiratory distress, No rales, No rhonchi, No wheezing Breast Discoloration R, Erythema R, Nipple discharge R, Swelling R, Tenderness R. Negative: Maries peel effect R. Cardiovascular Cardiovascular Heart rate NL, Regular rhythm, Heart sounds NL, Cap refill not delayed, Peripheral circulation NL MS Upper Extrem Upper Extremity/MS Inspection NL, No swelling, Non-tender, No erythema MS Lower Extrem Lower Ext/Pelvis/MS Inspection NL, No swelling, Non-tender, No erythema, Vascular intact, No edema Skin Skin No rash, Turgor NL Text/Dict Notes SEE BREAST EXAM Neurologic Neurologic Oriented X3, Speech NL, No motor deficits, No sensory deficits, Memory NL Additional PE MS Head Head Atraumatic, Normocephalic Eyes Eyes Atraumatic, PERRL, EOMI, No nystagmus, No periorbital redness Abdomen/GI Abdomen/GI Atraumatic, Soft, Non-tender, No guarding, No rebound, BS normoactive, No distention MS Back Back Atraumatic, Inspection NL, Full range of motion, Painless range of motion, Non-tender, No midline vertebral tend Psychiatric Psychiatric Affect NL, Mood NL, Cognitive function NL, Judgment/insight NL, Thought content NL Portions of this section were scribed by Justin Gupta on 11/05/19 at 1746 Interpretation Diagnostics Lab Results Interpretation Results Laboratory Tests 11/05/19 1635: [Embedded Image Not Available] Laboratory Tests: 11/05 11/05 11/05 1643 1640 1635 Chemistry Sodium (137 - 145 mmol/L) 146 H Potassium (3.4 - 5.0 mmol/L) 4.0 Chloride (98 - 107 mmol/L) 109 H Carbon Dioxide (22 - 30 mmol/L) 26 BUN (7 - 17 mg/dL) 7 Creatinine (0.5 - 1.0 mg/dL) 0.6 Glomerular Filtr Rate (>60) 133 Glucose (74 - 106 mg/dL) 108 H POC Lactic Acid (0.7 - 2.0 mmol/L) 1.39 Calcium (8.4 - 10.2 mg/dL) 8.6 Total Bilirubin (0.2 - 1.3 mg/dL) 0.4 Conjugated Bilirubin (0 - 0.3 mg/dL) 0 Unconjugated Bilirubin (0 - 1.1 mg/dL) 0 AST (15 - 46 U/L) 18 ALT (13 - 69 U/L) 18 Total Alk Phosphatase (38 - 126 U/L) 112 Total Protein (6.3 - 8.2 g/dL) 7.0 Albumin (3.5 - 5.0 g/dL) 3.7 Beta HCG, Quant (0 - 4.9 IU/L) <5.0 Hematology WBC (5.0 - 12.0 x10 3/uL) 20.3 H RBC (4.20 - 5.40 x10 6/uL) 4.73 Hgb (12.0 - 16.0 g/dL) 12.9 Hct (36.0 - 46.0 %) 41.0 MCV (81 - 99 fL) 87 MCH (27 - 31 pg) 27.3 MCHC (33 - 37 g/dL) 31.5 L RDW (11.5 - 15.5 %) 15.6 H Plt Count (130 - 400 x10 3/uL) 495 H MPV (9.4 - 16.4 fL) 10.3 Neut % (Auto) (43 - 65 %) 73.0 H Lymph % (Auto) (20.5 - 45.5 %) 16.7 L Terrell % (Auto) (5.5 - 11.7 %) 6.0 Eos % (Auto) (0.9 - 2.9 %) 3.1 H Baso % (Auto) (0.2 - 1.0 %) 0.6 Neut # (Auto) (2.2 - 4.8 x10 3/uL) 14.82 H Lymph # (Auto) (1.3 - 2.9 x10 3/uL) 3.40 H Terrell # (Auto) (0.3 - 0.8 x10 3/uL) 1.21 H Eos # (Auto) (0.0 - 0.2 x10 3/uL) 0.63 H Baso # (Auto) (0.0 - 0.1 x10 3/uL) 0.12 H Immature Gran % (0.0 - 2.0 %) 0.6 Nucleated RBC % (0 - 1.0 %) 0.0 Urines Urine Color (Yellow) Yellow Urine Appearance (Clear) Cloudy H Urine pH (5.0 - 8.0) 7.0 Ur Specific South Heart (<1.030) 1.021 Urine Protein (Negative mg/dL) 100 (2+) H Urine Glucose (UA) (Negative) Negative Urine Ketones (Negative mg/dL) Negative Urine Blood (Negative) 3+ H Urine Nitrite (Negative) Negative Urine Bilirubin (Negative) Negative Urine Urobilinogen (Negative mg/dL) 2.0 H Ur Leukocyte Esterase (Negative) 3+ H Urine RBC (<4 - 5 /HPF) >100 H Urine WBC (<4 - 5 /HPF) >100 H Ur Squamous Epith Cells (0 - 5 (RARE) /HPF) >25 (MANY) H Urine Bacteria (None - Rare /HPF) 2+ H Microbiology: Date/Time Procedure - Status Source Growth 11/05 1838 Wound Culture - RECD BREAST 11/05 1838 Gram Stain - RECD BREAST 11/05 163 Blood Culture - RES BLOOD 11/05 163 Blood Culture - RES BLOOD Recent Impressions: ULTRASOUND - US BRST W AX LTD UNI RT 11/05 1640 Report Impression - Status: SIGNED Entered: 11/05/2019 1743 IMPRESSION: 4.6 x 3.4 x 5.5 cm retroareolar right breast abscess. RECOMMENDATIONS: Suggest initial antibiotic treatment. Follow-up right breast imaging Center at 5-7 days. Ultrasound-guided aspiration/drainage is sizable abscess persists. * A negative breast imaging report should not delay biopsy if a clinically suspicious mass is present. * The patient was provided with a copy of this report in lay terminology. FOR INTERNAL CODING PURPOSES ONLY RESULT CODE: 3 FOLLOW UP: F3 Impression By: AjEFAngelica Pathak MD Lab Imaging Statement Laboratory radiographic studies reviewed and considered in the medical decision-making. Point of Care Testing Pulse Oximetry Pulse Ox % 98 On: Room air Interpretation Interpreted by me, Pulse oximetry normal Time 1640 Portions of this section were scribed by Justin Gupta on 11/05/19 at 1746 Re-Evaluation MDM Free Text MDM Notes Free Text MDM Notes DR REED AT BEDSIDE FOR I D AND REQUESTING I ORDER 50 MCG FENTANYL IV FOR THE PT DR REED DISCUSSED ADMISSION WITH PT AND PT WANTS TO BE DISCHARGED HOME. DR REED REQUESTED AUGMENTIN PRESCRIPTION WITH GEN SX F/U ED Course Medication(s) Ordered Medication(s) Ordered: Anti-Infective Agents Sig/Echo Start time Last Medication Dose Route Stop Time Status Admin Ampicillin Sodium/ 3 GM X1ED STA 11/05 1744 DC 11/05 Sulbactam Sodium IV 11/05 1813 1819 Sodium Chloride 100 ML Clindamycin 50 ML X1ED STA 11/05 1634 DC 11/05 Phosphate/Dextrose IV 11/05 1703 1644 Cardiovascular Drugs Sig/Echo Start time Last Medication Dose Route Stop Time Status Admin Lidocaine HCl 5 ML X1ED STA 11/05 1736 DC 11/05 LOCAL 11/05 1737 1819 Central Nervous System Agents Sig/Echo Start time Last Medication Dose Route Stop Time Status Admin Fentanyl Citrate 50 MCG X1ED STA 11/05 1822 DC 11/05 IV 11/05 1823 1826 Hydrocodone Bitart/ 1 TAB X1ED STA 11/05 1634 DC 11/05 Acetaminophen PO 11/05 1635 1644 Ketorolac 15 MG X1ED STA 11/05 1634 DC 11/05 Tromethamine IV 11/05 1635 1644 Electrolytic, Caloric, And Bernard Sig/Echo Start time Last Medication Dose Route Stop Time Status Admin Sodium Chloride 1,000 ML X1ED STA 11/05 1634 DC 11/05 IV 11/05 1635 1645 Local Anesthetics (Parenteral) Sig/Echo Start time Last Medication Dose Route Stop Time Status Admin Lidocaine/Epinephrine See Dose X1ED STA 11/05 1741 DC 11/05 Insts (1) I-DERMAL 11/05 1742 1820 Dose Instructions: (1)Lidocaine/Epinephrine: ENTER DOSE HERE. Consultation Consultation Referral/Consult Name Harvey Reed MD [employer] Called General Surgery Requested Call Time 174 Requested Call Date 11/05/19 Call Returned Call returned Call Returned Time 174 Call Returned Date 11/05/19 [employer] Operator Will see patient, Will I D pt at bedside. Portions of this section were scribed by Justin Gupta on 11/05/19 at 1746 Patient Discharge Departure Vital Signs/Condition Vital Signs First Documented: Result Date Time Pulse Ox 98 11/05 1632 B/P 115/74 11/05 1632 B/P Mean 87 11/05 1632 O2 Delivery Room air 11/05 163 Temp 36.4 11/05 163 Pulse 110 11/05 163 Resp 16 11/05 1632 Last Documented: Result Date Time Pulse Ox 99 11/05 1904 B/P 114/72 11/05 1904 B/P Mean 86 11/05 1904 O2 Delivery Room air 11/05 1904 Temp 36.6 11/05 1904 Pulse 98 11/05 1904 Resp 16 11/05 1904 All vital signs available at the time of this entry have been reviewed. Condition Stable Clinical Impression Clinical Impression Primary Impression: Breast abscess Disposition Decision Discharge )( Discharged to Home Yes )( Time 184 )( Date 11/05/19 Discharge/Care Plan Counseled Regarding Diagnosis, Lab results, Imaging studies, Prescriptions, Need for follow-up, When to return to ED Prescriptions AUGMENTIN, NAPROXEN Prescriptions Reviewed Risks, Benefits, Alternative treatment Discharge Note I have spoken with the patient and/or caregivers. I have explained the patient's condition, diagnoses and treatment plan based on the information available to me at this time. I have answered the patient's and/or caregiver's questions and addressed any concerns. The patient and/or caregivers have as good an understanding of the patient's diagnosis, condition and treatment plan as can be expected at this point. The vital signs have been stable. The patient's condition is stable and appropriate for discharge from the emergency department. The patient will pursue further outpatient evaluation with the primary care physician or other designated or consulting physician as outlined in the discharge instructions. The patient and/or caregivers are agreeable to this plan of care and follow-up instructions have been explained in detail. The patient and/or caregivers have received these instructions in written format and have expressed an understanding of the discharge instructions. The patient and/or caregivers are aware that any significant change in condition or worsening of symptoms should prompt an immediate return to this or the closest emergency department or a call to 911. Supervising Physician Note Scribe Statement Justin Gupta, 11/05/19 775, scribing for and in the presence of [Tessie VELAZQUEZ]. Signed By: Justin Gupta, 11/05/191745 Provider Scribed Statement I personally performed the services described in this documentation and reviewed the documentation that was dictated to the scribe(s) in my presence, and it accurately records my words and actions. Adrianna Kurtz, 11/06/19 Portions of this section were scribed by Justin Gupta on 11/05/19 at 1746 at 1128 RPT #:[id number] END OF REPORT [facility] 2019-11-05 16:35:00 [facility] ([facility]) EMERGENCY PROVIDER REPORT REPORT#:[id number] REPORT STATUS: Signed DATE:11/05/19 TIME: 163 PATIENT: TRISHA CUADRA UNIT #: [id number] ROOM/BED: AGE: 24 SEX: F PCP PHYS: No Primary or Family Physician SERVICE AUTHOR: Adrianna Kurtz NP * ALL edits or amendments must be made on the electronic/computer document * Adrianna Kurtz 11/05/19 1635: HPI-Rash/Abscess/Cellulitis General Confirmed Patient Yes Patient Type New patient PCP NONE Presentation Chief Complaint Abscess, RIGHT BREAST Hx Obtained From Patient Onset Occurred Yesterday Symptom Duration Since onset, Constant Progression since Onset Constant Location RIGHT BREAST Quality Painful Severity: Onset Mild Severity: Current Severe Associated with Denies: Abdominal pain, Arthralgia, Arthritis, Bleeding, Bruising, Conjunctivitis, Dizziness, Facial swelling, Fever, Headache, Joint pain, Leg swelling, Mouth lesions, Myalgia, Nausea, Red streaking, Shaking chills, Skin sloughing, Sore throat, Upper resp infection, Vomiting, Weakness. Exacerbated by Palpation Context Recent Healthcare No recent doctor visit, No recent hospitalization Free Text HPI Notes Free Text HPI Notes PT REPORTS HAD A VAGINAL DELIVERY THREE WEEKS AGO AND THEN [place]. SHE REPORTS SHE GOT OUT SEVERAL DAYS AGO AND HAS NOT BREAST FED HER CHILD AND HER CHILD IS NOT IN HER CUSTODY. REPORTS STARTED HAVING RIGHT NIPPLE/ BREAST PAIN WITH SWELLING LAST NIGHT THAT HAS WORSENED TODAY. Portions of this section were scribed by Justin Gupta on 11/05/19 at 1746 Review of Systems ROS Statements All systems rev neg except as marked. Basic Review of Systems Basic ROS : No dysuria/frequency (Q), HEM: No bleeding/bruising, NEURO: No change MS, NEURO: No focal deficit, PSYCH: NL thought content Focused Review of Systems Constitutional Denies: Chills, Fatigue, Fever, Lethargy, Weakness - generalized. Eyes Denies: Blurred bilat, Eye pain bilat, Redness bilat, Visual loss bilat. Ears/Nose/Throat Denies: Earache bilat, Nasal congestion, Sore throat. Respiratory Denies: Cough, non-productive, Cough, productive, Dyspnea on exertion, Shortness of breath. Cardiovascular Denies: Chest pain, Dyspnea on exertion, Syncope. GI Denies: Abdominal pain, Constipation, Diarrhea, Nausea, Vomiting. Musculoskeletal Denies: Back pain, Extremity pain, Neck pain, Thoracic pain. Skin Reports: Abscess, Erythema, Swelling. Allergy/Immun Denies: Allergic reaction, Hives, Itching. Additional Review of Systems Female Denies: Dysuria, Flank pain, Hematuria, , Urinary frequency, Urinary urgency. Hematologic Denies: Bleeding, Bruising. Psychiatric Denies: Agitation, Anxiety, Stress. 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 Allergies Coded Allergies: No Known Allergies (08/06/17) Home Medications Active Scripts IBUPROFEN (MOTRIN) 800 MG PO TID IBUPROFEN (MOTRIN) 800 MG PO TID #60 TAB Ref 1 Prov: 08/20/17 Reported Medications PNV WITH FE FUMARATE/FA () 1 TAB PO DAILY HYDROcodone/APAP (NORCO 5/325) 1 TAB PO Q4H PRN PRN PAIN / CRAMPS Review of Nursing Notes Rev avail, and agree Additional Medical History none Additional Surgical History none Drug Use Denies recreational drugs Smoking status for patients 13 years old or older: Current every day smoker Other Social History Local resident, Good social support Ambulatory Status Independent Physical Exam Vital Signs Vital Signs First Documented: Result Date Time Pulse Ox 98 11/05 1632 B/P 115/74 11/05 1632 B/P Mean 87 11/05 1632 O2 Delivery Room air 11/05 1632 Temp 97.6 11/05 1632 Pulse 110 11/05 1632 Resp 16 11/05 1632 Last Documented: Result Date Time Pulse Ox 99 11/05 1904 B/P 114/72 11/05 1904 B/P Mean 86 11/05 190 O2 Delivery Room air 11/05 190 Temp 97.9 11/05 1904 Pulse 98 11/05 1904 Resp 16 11/05 1904 Review of Vital Signs Reviewed Basic Physical Exam Basic PE HEAD: Atraumatic/NC, EYES: PERRL, conj clear, ENT: Membranes moist, NECK: Supple, RESP: No resp distress, CV: Reg rate rhythm, ABD: Soft/non- tender, EXT: No gross abnormality, NEURO: alert oriented, NEURO: gross movement NL, PSYCH: NL thought content Focused PE General/Const General/Const Awake, Alert, No acute distress, Well appearing, Well developed , Well hydrated, Well nourished, Cooperative, Not toxic appearing Ears/Nose/Throat Ears/Nose/Throat Atraumatic, Airway patent, Mucous membranes moist, No facial swelling Resp/Chest Respiratory/Chest Breath sounds NL, Breath sounds = bilat, No respiratory distress, No rales, No rhonchi, No wheezing Breast Discoloration R, Erythema R, Nipple discharge R, Swelling R, Tenderness R. Negative: Maries peel effect R. Cardiovascular Cardiovascular Heart rate NL, Regular rhythm, Heart sounds NL, Cap refill not delayed, Peripheral circulation NL MS Upper Extrem Upper Extremity/MS Inspection NL, No swelling, Non-tender, No erythema MS Lower Extrem Lower Ext/Pelvis/MS Inspection NL, No swelling, Non-tender, No erythema, Vascular intact, No edema Skin Skin No rash, Turgor NL Text/Dict Notes SEE BREAST EXAM Neurologic Neurologic Oriented X3, Speech NL, No motor deficits, No sensory deficits, Memory NL Additional PE MS Head Head Atraumatic, Normocephalic Eyes Eyes Atraumatic, PERRL, EOMI, No nystagmus, No periorbital redness Abdomen/GI Abdomen/GI Atraumatic, Soft, Non-tender, No guarding, No rebound, BS normoactive, No distention MS Back Back Atraumatic, Inspection NL, Full range of motion, Painless range of motion, Non-tender, No midline vertebral tend Psychiatric Psychiatric Affect NL, Mood NL, Cognitive function NL, Judgment/insight NL, Thought content NL Portions of this section were scribed by Justin Gupta on 11/05/19 at 1746 Interpretation Diagnostics Lab Results Interpretation Results Laboratory Tests 11/05/19 1635: [Embedded Image Not Available] Laboratory Tests: 11/05 11/05 11/05 1643 1640 1635 Chemistry Sodium (137 - 145 mmol/L) 146 H Potassium (3.4 - 5.0 mmol/L) 4.0 Chloride (98 - 107 mmol/L) 109 H Carbon Dioxide (22 - 30 mmol/L) 26 BUN (7 - 17 mg/dL) 7 Creatinine (0.5 - 1.0 mg/dL) 0.6 Glomerular Filtr Rate (>60) 133 Glucose (74 - 106 mg/dL) 108 H POC Lactic Acid (0.7 - 2.0 mmol/L) 1.39 Calcium (8.4 - 10.2 mg/dL) 8.6 Total Bilirubin (0.2 - 1.3 mg/dL) 0.4 Conjugated Bilirubin (0 - 0.3 mg/dL) 0 Unconjugated Bilirubin (0 - 1.1 mg/dL) 0 AST (15 - 46 U/L) 18 ALT (13 - 69 U/L) 18 Total Alk Phosphatase (38 - 126 U/L) 112 Total Protein (6.3 - 8.2 g/dL) 7.0 Albumin (3.5 - 5.0 g/dL) 3.7 Beta HCG, Quant (0 - 4.9 IU/L) <5.0 Hematology WBC (5.0 - 12.0 x10 3/uL) 20.3 H RBC (4.20 - 5.40 x10 6/uL) 4.73 Hgb (12.0 - 16.0 g/dL) 12.9 Hct (36.0 - 46.0 %) 41.0 MCV (81 - 99 fL) 87 MCH (27 - 31 pg) 27.3 MCHC (33 - 37 g/dL) 31.5 L RDW (11.5 - 15.5 %) 15.6 H Plt Count (130 - 400 x10 3/uL) 495 H MPV (9.4 - 16.4 fL) 10.3 Neut % (Auto) (43 - 65 %) 73.0 H Lymph % (Auto) (20.5 - 45.5 %) 16.7 L Terrell % (Auto) (5.5 - 11.7 %) 6.0 Eos % (Auto) (0.9 - 2.9 %) 3.1 H Baso % (Auto) (0.2 - 1.0 %) 0.6 Neut # (Auto) (2.2 - 4.8 x10 3/uL) 14.82 H Lymph # (Auto) (1.3 - 2.9 x10 3/uL) 3.40 H Terrell # (Auto) (0.3 - 0.8 x10 3/uL) 1.21 H Eos # (Auto) (0.0 - 0.2 x10 3/uL) 0.63 H Baso # (Auto) (0.0 - 0.1 x10 3/uL) 0.12 H Immature Gran % (0.0 - 2.0 %) 0.6 Nucleated RBC % (0 - 1.0 %) 0.0 Urines Urine Color (Yellow) Yellow Urine Appearance (Clear) Cloudy H Urine pH (5.0 - 8.0) 7.0 Ur Specific South Heart (<1.030) 1.021 Urine Protein (Negative mg/dL) 100 (2+) H Urine Glucose (UA) (Negative) Negative Urine Ketones (Negative mg/dL) Negative Urine Blood (Negative) 3+ H Urine Nitrite (Negative) Negative Urine Bilirubin (Negative) Negative Urine Urobilinogen (Negative mg/dL) 2.0 H Ur Leukocyte Esterase (Negative) 3+ H Urine RBC (<4 - 5 /HPF) >100 H Urine WBC (<4 - 5 /HPF) >100 H Ur Squamous Epith Cells (0 - 5 (RARE) /HPF) >25 (MANY) H Urine Bacteria (None - Rare /HPF) 2+ H Microbiology: Date/Time Procedure - Status Source Growth 11/05 1838 Wound Culture - RES BREAST 11/05 1838 Gram Stain - RES BREAST 11/05 1635 Blood Culture - RES BLOOD 11/05 1635 Blood Culture - RES BLOOD Recent Impressions: ULTRASOUND - US BRST W AX LTD UNI RT 11/05 1640 Report Impression - Status: SIGNED Entered: 11/05/2019 1743 IMPRESSION: 4.6 x 3.4 x 5.5 cm retroareolar right breast abscess. RECOMMENDATIONS: Suggest initial antibiotic treatment. Follow-up right breast imaging Center at 5-7 days. Ultrasound-guided aspiration/drainage is sizable abscess persists. * A negative breast imaging report should not delay biopsy if a clinically suspicious mass is present. * The patient was provided with a copy of this report in lay terminology. FOR INTERNAL CODING PURPOSES ONLY RESULT CODE: 3 FOLLOW UP: F3 Impression By: Angelica Qureshi MD Lab Imaging Statement Laboratory radiographic studies reviewed and considered in the medical decision-making. Point of Care Testing Pulse Oximetry Pulse Ox % 98 On: Room air Interpretation Interpreted by me, Pulse oximetry normal Time 1640 Portions of this section were scribed by Justin Gupta on 11/05/19 at 1746 Re-Evaluation MDM Free Text MDM Notes Free Text MDM Notes DR REED AT BEDSIDE FOR I D AND REQUESTING I ORDER 50 MCG FENTANYL IV FOR THE PT DR REED DISCUSSED ADMISSION WITH PT AND PT WANTS TO BE DISCHARGED HOME. DR REED REQUESTED AUGMENTIN PRESCRIPTION WITH GEN SX F/U ED Course Medication(s) Ordered Medication(s) Ordered: Anti-Infective Agents Sig/Echo Start time Last Medication Dose Route Stop Time Status Admin Ampicillin Sodium/ 3 GM X1ED STA 11/05 1744 DC 11/05 Sulbactam Sodium IV 11/05 1813 1819 Sodium Chloride 100 ML Clindamycin 50 ML X1ED STA 11/05 1634 DC 11/05 Phosphate/Dextrose IV 11/05 1703 1644 Cardiovascular Drugs Sig/Echo Start time Last Medication Dose Route Stop Time Status Admin Lidocaine HCl 5 ML X1ED STA 11/05 1736 DC 11/05 LOCAL 11/05 1737 1819 Central Nervous System Agents Sig/Echo Start time Last Medication Dose Route Stop Time Status Admin Fentanyl Citrate 50 MCG X1ED STA 11/05 1822 DC 11/05 IV 11/05 1823 1826 Hydrocodone Bitart/ 1 TAB X1ED STA 11/05 1634 DC 11/05 Acetaminophen PO 11/05 1635 1644 Ketorolac 15 MG X1ED STA 11/05 1634 DC 11/05 Tromethamine IV 11/05 1635 1644 Electrolytic, Caloric, And Bernard Sig/Echo Start time Last Medication Dose Route Stop Time Status Admin Sodium Chloride 1,000 ML X1ED STA 11/05 1634 DC 11/05 IV 11/05 1635 1645 Local Anesthetics (Parenteral) Sig/Echo Start time Last Medication Dose Route Stop Time Status Admin Lidocaine/Epinephrine See Dose X1ED STA 11/05 1741 DC 11/05 Insts (1) I-DERMAL 11/05 1742 1820 Dose Instructions: (1)Lidocaine/Epinephrine: ENTER DOSE HERE. Consultation Consultation Referral/Consult Name Harvey Reed MD Legger Press Operator Called General Surgery Requested Call Time 1745 Requested Call Date 11/05/19 Call Returned Call returned Call Returned Time 1745 Call Returned Date 11/05/19 Legger Press Operator Will see patient, Will I D pt at bedside. Portions of this section were scribed by Justin Gupta on 11/05/19 at 1746 Patient Discharge Departure Vital Signs/Condition Vital Signs First Documented: Result Date Time Pulse Ox 98 11/05 1632 B/P 115/74 11/05 1632 B/P Mean 87 11/05 1632 O2 Delivery Room air 11/05 163 Temp 97.6 11/05 163 Pulse 110 11/05 163 Resp 16 11/05 163 Last Documented: Result Date Time Pulse Ox 99 11/05 1904 B/P 114/72 11/05 1904 B/P Mean 86 11/05 1904 O2 Delivery Room air 11/05 190 Temp 97.9 11/05 190 Pulse 98 11/05 1904 Resp 16 11/05 1904 All vital signs available at the time of this entry have been reviewed. Condition Stable Clinical Impression Clinical Impression Primary Impression: Breast abscess Disposition Decision Discharge )( Discharged to Home Yes )( Time 184 )( Date 11/05/19 Discharge/Care Plan Counseled Regarding Diagnosis, Lab results, Imaging studies, Prescriptions, Need for follow-up, When to return to ED Prescriptions AUGMENTIN, NAPROXEN Prescriptions Reviewed Risks, Benefits, Alternative treatment Discharge Note I have spoken with the patient and/or caregivers. I have explained the patient's condition, diagnoses and treatment plan based on the information available to me at this time. I have answered the patient's and/or caregiver's questions and addressed any concerns. The patient and/or caregivers have as good an understanding of the patient's diagnosis, condition and treatment plan as can be expected at this point. The vital signs have been stable. The patient's condition is stable and appropriate for discharge from the emergency department. The patient will pursue further outpatient evaluation with the primary care physician or other designated or consulting physician as outlined in the discharge instructions. The patient and/or caregivers are agreeable to this plan of care and follow-up instructions have been explained in detail. The patient and/or caregivers have received these instructions in written format and have expressed an understanding of the discharge instructions. The patient and/or caregivers are aware that any significant change in condition or worsening of symptoms should prompt an immediate return to this or the closest emergency department or a call to 911. Supervising Physician Note Scribe Statement Justin Gupta, 11/05/19 1746, scribing for and in the presence of [Tessie VELAZQUEZ]. Signed By: Justin Gupta, 11/05/19 1746 Provider Scribed Statement I personally performed the services described in this documentation and reviewed the documentation that was dictated to the scribe(s) in my presence, and it accurately records my words and actions. Adrianna Kurtz, 11/06/19 Portions of this section were scribed by Justin Gupta on 11/05/19 at 1746 Gianna Sterling 11/07/19 0958: HPI-Rash/Abscess/Cellulitis General Initial Greet Date/Time 11/05/19 1630 Patient Discharge Departure Supervising Physician Note MidLv Saw Pt Alone I have reviewed the PA/ANODISER's note and plan of care. I was available for consultation as needed at all times during the patient's visit in the emergency department. I agree with the clinical impression, plan and disposition. Authenticated by Gianna Sterling MD on 11/05/19 at 1822 at 1128 RPT #:[id number] END OF REPORT [facility] 2019-11-05 16:35:00 [facility] ([facility]) EMERGENCY PROVIDER REPORT REPORT#:[id number] REPORT STATUS: Signed DATE:11/05/19 TIME: 1634 PATIENT: TRISHA CUADRA UNIT #: [id number] ROOM/BED: AGE: 24 SEX: F PCP PHYS: No Primary or Family Physician SERVICE AUTHOR: Adrianna Kurtz NP * ALL edits or amendments must be made on the electronic/computer document * Adrianna Kurtz 11/05/19 1635: HPI-Rash/Abscess/Cellulitis General Confirmed Patient Yes Patient Type New patient PCP NONE Presentation Chief Complaint Abscess, RIGHT BREAST Hx Obtained From Patient Onset Occurred Yesterday Symptom Duration Since onset, Constant Progression since Onset Constant Location RIGHT BREAST Quality Painful Severity: Onset Mild Severity: Current Severe Associated with Denies: Abdominal pain, Arthralgia, Arthritis, Bleeding, Bruising, Conjunctivitis, Dizziness, Facial swelling, Fever, Headache, Joint pain, Leg swelling, Mouth lesions, Myalgia, Nausea, Red streaking, Shaking chills, Skin sloughing, Sore throat, Upper resp infection, Vomiting, Weakness. Exacerbated by Palpation Context Recent Healthcare No recent doctor visit, No recent hospitalization Free Text HPI Notes Free Text HPI Notes PT REPORTS HAD A VAGINAL DELIVERY THREE WEEKS AGO AND THEN WAS ARRESTED AND IN [facility] SKILLED NURSING. SHE REPORTS SHE GOT OUT SEVERAL DAYS AGO AND HAS NOT BREAST FED HER CHILD AND HER CHILD IS NOT IN HER CUSTODY. REPORTS STARTED HAVING RIGHT NIPPLE/ BREAST PAIN WITH SWELLING LAST NIGHT THAT HAS WORSENED TODAY. Portions of this section were scribed by Justin Gupta on 11/05/19 at 1746 Review of Systems ROS Statements All systems rev neg except as marked. Basic Review of Systems Basic ROS : No dysuria/frequency (Q), HEM: No bleeding/bruising, NEURO: No change MS, NEURO: No focal deficit, PSYCH: NL thought content Focused Review of Systems Constitutional Denies: Chills, Fatigue, Fever, Lethargy, Weakness - generalized. Eyes Denies: Blurred bilat, Eye pain bilat, Redness bilat, Visual loss bilat. Ears/Nose/Throat Denies: Earache bilat, Nasal congestion, Sore throat. Respiratory Denies: Cough, non-productive, Cough, productive, Dyspnea on exertion, Shortness of breath. Cardiovascular Denies: Chest pain, Dyspnea on exertion, Syncope. GI Denies: Abdominal pain, Constipation, Diarrhea, Nausea, Vomiting. Musculoskeletal Denies: Back pain, Extremity pain, Neck pain, Thoracic pain. Skin Reports: Abscess, Erythema, Swelling. Allergy/Immun Denies: Allergic reaction, Hives, Itching. Additional Review of Systems Female Denies: Dysuria, Flank pain, Hematuria, , Urinary frequency, Urinary urgency. Hematologic Denies: Bleeding, Bruising. Psychiatric Denies: Agitation, Anxiety, Stress. 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 Allergies Coded Allergies: No Known Allergies (08/06/17) Home Medications Active Scripts IBUPROFEN (MOTRIN) 800 MG PO TID IBUPROFEN (MOTRIN) 800 MG PO TID #60 TAB Ref 1 Prov: 08/20/17 Reported Medications PNV WITH FE FUMARATE/FA () 1 TAB PO DAILY HYDROcodone/APAP (NORCO 5/325) 1 TAB PO Q4H PRN PRN PAIN / CRAMPS Review of Nursing Notes Rev avail, and agree Additional Medical History none Additional Surgical History none Drug Use Denies recreational drugs Smoking status for patients 13 years old or older: Current every day smoker Other Social History Local resident, Good social support Ambulatory Status Independent Physical Exam Vital Signs Vital Signs First Documented: Result Date Time Pulse Ox 98 11/05 1632 B/P 115/74 11/05 1632 B/P Mean 87 11/05 1632 O2 Delivery Room air 11/05 1632 Temp 97.6 11/05 1632 Pulse 110 11/05 1632 Resp 16 11/05 163 Last Documented: Result Date Time Pulse Ox 99 11/05 1904 B/P 114/72 11/05 1904 B/P Mean 86 11/05 1904 O2 Delivery Room air 11/05 1904 Temp 97.9 11/05 1904 Pulse 98 11/05 1904 Resp 16 11/05 190 Review of Vital Signs Reviewed Basic Physical Exam Basic PE HEAD: Atraumatic/NC, EYES: PERRL, conj clear, ENT: Membranes moist, NECK: Supple, RESP: No resp distress, CV: Reg rate rhythm, ABD: Soft/non- tender, EXT: No gross abnormality, NEURO: alert oriented, NEURO: gross movement NL, PSYCH: NL thought content Focused PE General/Const General/Const Awake, Alert, No acute distress, Well appearing, Well developed , Well hydrated, Well nourished, Cooperative, Not toxic appearing Ears/Nose/Throat Ears/Nose/Throat Atraumatic, Airway patent, Mucous membranes moist, No facial swelling Resp/Chest Respiratory/Chest Breath sounds NL, Breath sounds = bilat, No respiratory distress, No rales, No rhonchi, No wheezing Breast Discoloration R, Erythema R, Nipple discharge R, Swelling R, Tenderness R. Negative: Maries peel effect R. Cardiovascular Cardiovascular Heart rate NL, Regular rhythm, Heart sounds NL, Cap refill not delayed, Peripheral circulation NL MS Upper Extrem Upper Extremity/MS Inspection NL, No swelling, Non-tender, No erythema MS Lower Extrem Lower Ext/Pelvis/MS Inspection NL, No swelling, Non-tender, No erythema, Vascular intact, No edema Skin Skin No rash, Turgor NL Text/Dict Notes SEE BREAST EXAM Neurologic Neurologic Oriented X3, Speech NL, No motor deficits, No sensory deficits, Memory NL Additional PE MS Head Head Atraumatic, Normocephalic Eyes Eyes Atraumatic, PERRL, EOMI, No nystagmus, No periorbital redness Abdomen/GI Abdomen/GI Atraumatic, Soft, Non-tender, No guarding, No rebound, BS normoactive, No distention MS Back Back Atraumatic, Inspection NL, Full range of motion, Painless range of motion, Non-tender, No midline vertebral tend Psychiatric Psychiatric Affect NL, Mood NL, Cognitive function NL, Judgment/insight NL, Thought content NL Portions of this section were scribed by Justin Gupta on 11/05/19 at 1746 Interpretation Diagnostics Lab Results Interpretation Results Laboratory Tests 11/05/19 1635: [Embedded Image Not Available] Laboratory Tests: 11/05 11/05 11/05 1643 1640 1635 Chemistry Sodium (137 - 145 mmol/L) 146 H Potassium (3.4 - 5.0 mmol/L) 4.0 Chloride (98 - 107 mmol/L) 109 H Carbon Dioxide (22 - 30 mmol/L) 26 BUN (7 - 17 mg/dL) 7 Creatinine (0.5 - 1.0 mg/dL) 0.6 Glomerular Filtr Rate (>60) 133 Glucose (74 - 106 mg/dL) 108 H POC Lactic Acid (0.7 - 2.0 mmol/L) 1.39 Calcium (8.4 - 10.2 mg/dL) 8.6 Total Bilirubin (0.2 - 1.3 mg/dL) 0.4 Conjugated Bilirubin (0 - 0.3 mg/dL) 0 Unconjugated Bilirubin (0 - 1.1 mg/dL) 0 AST (15 - 46 U/L) 18 ALT (13 - 69 U/L) 18 Total Alk Phosphatase (38 - 126 U/L) 112 Total Protein (6.3 - 8.2 g/dL) 7.0 Albumin (3.5 - 5.0 g/dL) 3.7 Beta HCG, Quant (0 - 4.9 IU/L) <5.0 Hematology WBC (5.0 - 12.0 x10 3/uL) 20.3 H RBC (4.20 - 5.40 x10 6/uL) 4.73 Hgb (12.0 - 16.0 g/dL) 12.9 Hct (36.0 - 46.0 %) 41.0 MCV (81 - 99 fL) 87 MCH (27 - 31 pg) 27.3 MCHC (33 - 37 g/dL) 31.5 L RDW (11.5 - 15.5 %) 15.6 H Plt Count (130 - 400 x10 3/uL) 495 H MPV (9.4 - 16.4 fL) 10.3 Neut % (Auto) (43 - 65 %) 73.0 H Lymph % (Auto) (20.5 - 45.5 %) 16.7 L Terrell % (Auto) (5.5 - 11.7 %) 6.0 Eos % (Auto) (0.9 - 2.9 %) 3.1 H Baso % (Auto) (0.2 - 1.0 %) 0.6 Neut # (Auto) (2.2 - 4.8 x10 3/uL) 14.82 H Lymph # (Auto) (1.3 - 2.9 x10 3/uL) 3.40 H Terrell # (Auto) (0.3 - 0.8 x10 3/uL) 1.21 H Eos # (Auto) (0.0 - 0.2 x10 3/uL) 0.63 H Baso # (Auto) (0.0 - 0.1 x10 3/uL) 0.12 H Immature Gran % (0.0 - 2.0 %) 0.6 Nucleated RBC % (0 - 1.0 %) 0.0 Urines Urine Color (Yellow) Yellow Urine Appearance (Clear) Cloudy H Urine pH (5.0 - 8.0) 7.0 Ur Specific South Heart (<1.030) 1.021 Urine Protein (Negative mg/dL) 100 (2+) H Urine Glucose (UA) (Negative) Negative Urine Ketones (Negative mg/dL) Negative Urine Blood (Negative) 3+ H Urine Nitrite (Negative) Negative Urine Bilirubin (Negative) Negative Urine Urobilinogen (Negative mg/dL) 2.0 H Ur Leukocyte Esterase (Negative) 3+ H Urine RBC (<4 - 5 /HPF) >100 H Urine WBC (<4 - 5 /HPF) >100 H Ur Squamous Epith Cells (0 - 5 (RARE) /HPF) >25 (MANY) H Urine Bacteria (None - Rare /HPF) 2+ H Microbiology: Date/Time Procedure - Status Source Growth 11/05 1838 Wound Culture - RES BREAST 11/05 1838 Gram Stain - RES BREAST 11/05 163 Blood Culture - RES BLOOD 11/05 163 Blood Culture - RES BLOOD Recent Impressions: ULTRASOUND - US BRST W AX LTD UNI RT 11/05 1640 Report Impression - Status: SIGNED Entered: 11/05/2019 174 IMPRESSION: 4.6 x 3.4 x 5.5 cm retroareolar right breast abscess. RECOMMENDATIONS: Suggest initial antibiotic treatment. Follow-up right breast imaging Center at 5-7 days. Ultrasound-guided aspiration/drainage is sizable abscess persists. * A negative breast imaging report should not delay biopsy if a clinically suspicious mass is present. * The patient was provided with a copy of this report in lay terminology. FOR INTERNAL CODING PURPOSES ONLY RESULT CODE: 3 FOLLOW UP: F3 Impression By: Angelica Qureshi MD Lab Imaging Statement Laboratory radiographic studies reviewed and considered in the medical decision-making. Point of Care Testing Pulse Oximetry Pulse Ox % 98 On: Room air Interpretation Interpreted by me, Pulse oximetry normal Time 1640 Portions of this section were scribed by Justin Gupta on 11/05/19 at 1746 Re-Evaluation MDM Free Text MDM Notes Free Text MDM Notes DR REED AT BEDSIDE FOR I D AND REQUESTING I ORDER 50 MCG FENTANYL IV FOR THE PT DR REED DISCUSSED ADMISSION WITH PT AND PT WANTS TO BE DISCHARGED HOME. DR REED REQUESTED AUGMENTIN PRESCRIPTION WITH GEN SX F/U ED Course Medication(s) Ordered Medication(s) Ordered: Anti-Infective Agents Sig/Echo Start time Last Medication Dose Route Stop Time Status Admin Ampicillin Sodium/ 3 GM X1ED STA 11/05 1744 DC 11/05 Sulbactam Sodium IV 12/28 1813 1819 Sodium Chloride 100 ML Clindamycin 50 ML X1ED STA 11/05 1634 DC 11/05 Phosphate/Dextrose IV 11/05 1703 1644 Cardiovascular Drugs Sig/Echo Start time Last Medication Dose Route Stop Time Status Admin Lidocaine HCl 5 ML X1ED STA 11/05 1736 DC 11/05 LOCAL 11/05 1737 1819 Central Nervous System Agents Sig/Echo Start time Last Medication Dose Route Stop Time Status Admin Fentanyl Citrate 50 MCG X1ED STA 11/05 1822 DC 11/05 IV 11/05 1823 1826 Hydrocodone Bitart/ 1 TAB X1ED STA 11/05 1634 DC 11/05 Acetaminophen PO 11/05 1635 1644 Ketorolac 15 MG X1ED STA 11/05 1634 DC 11/05 Tromethamine IV 11/05 1635 1644 Electrolytic, Caloric, And Bernard Sig/Echo Start time Last Medication Dose Route Stop Time Status Admin Sodium Chloride 1,000 ML X1ED STA 11/05 1634 DC 11/05 IV 11/05 1635 1645 Local Anesthetics (Parenteral) Sig/Echo Start time Last Medication Dose Route Stop Time Status Admin Lidocaine/Epinephrine See Dose X1ED STA 11/05 1741 DC 11/05 Insts (1) I-DERMAL 11/05 1742 1820 Dose Instructions: (1)Lidocaine/Epinephrine: ENTER DOSE HERE. Consultation Consultation Referral/Consult Name Harvey Reed MD Legger Press Operator Called General Surgery Requested Call Time 1746 Requested Call Date 11/05/19 Call Returned Call returned Call Returned Time 1746 Call Returned Date 11/05/19 Legger Press Operator Will see patient, Will I D pt at bedside. Portions of this section were scribed by Justin Gupta on 11/05/19 at 1746 Patient Discharge Departure Vital Signs/Condition Vital Signs First Documented: Result Date Time Pulse Ox 98 11/05 1632 B/P 115/74 11/05 1632 B/P Mean 87 11/05 1632 O2 Delivery Room air 11/05 1632 Temp 97.6 11/05 1632 Pulse 110 11/05 1632 Resp 16 11/05 1632 Last Documented: Result Date Time Pulse Ox 99 11/05 1904 B/P 114/72 11/05 1904 B/P Mean 86 11/05 1904 O2 Delivery Room air 11/05 1904 Temp 97.9 11/05 1904 Pulse 98 12/28 1904 Resp 16 11/05 1904 All vital signs available at the time of this entry have been reviewed. Condition Stable Clinical Impression Clinical Impression Primary Impression: Breast abscess Disposition Decision Discharge )( Discharged to Home Yes )( Time 1846 )( Date 11/05/19 Discharge/Care Plan Counseled Regarding Diagnosis, Lab results, Imaging studies, Prescriptions, Need for follow-up, When to return to ED Prescriptions AUGMENTIN, NAPROXEN Prescriptions Reviewed Risks, Benefits, Alternative treatment Discharge Note I have spoken with the patient and/or caregivers. I have explained the patient's condition, diagnoses and treatment plan based on the information available to me at this time. I have answered the patient's and/or caregiver's questions and addressed any concerns. The patient and/or caregivers have as good an understanding of the patient's diagnosis, condition and treatment plan as can be expected at this point. The vital signs have been stable. The patient's condition is stable and appropriate for discharge from the emergency department. The patient will pursue further outpatient evaluation with the primary care physician or other designated or consulting physician as outlined in the discharge instructions. The patient and/or caregivers are agreeable to this plan of care and follow-up instructions have been explained in detail. The patient and/or caregivers have received these instructions in written format and have expressed an understanding of the discharge instructions. The patient and/or caregivers are aware that any significant change in condition or worsening of symptoms should prompt an immediate return to this or the closest emergency department or a call to 911. Supervising Physician Note Scribe Statement Justin Gupta, 11/05/19 1746, scribing for and in the presence of [Tessie VELAZQUEZ]. Signed By: Justin Gupta, 11/05/19 174 Provider Scribed Statement I personally performed the services described in this documentation and reviewed the documentation that was dictated to the scribe(s) in my presence, and it accurately records my words and actions. Adrianna Kurtz, 11/06/19 Portions of this section were scribed by Justin Gupta on 11/05/19 at 1746 Gianna Sterling 11/07/19 0958: HPI-Rash/Abscess/Cellulitis General Initial Greet Date/Time 11/05/19 1630 Patient Discharge Departure Supervising Physician Note MidLv Saw Pt Alone I have reviewed the PA/ANODISER's note and plan of care. I was available for consultation as needed at all times during the patient's visit in the emergency department. I agree with the clinical impression, plan and disposition. Authenticated by Gianna Sterling MD on 11/05/19 at 1822 at 1128 at 1054 RPT #:[id number] END OF REPORT [facility] 2019-09-27 12:13:00 [facility] ([facility]) OB Admission / H P REPORT#:[id number] REPORT STATUS: Signed DATE:09/27/19 TIME: 1213 PATIENT: TRISHA CUADRA UNIT #: [id number] ROOM/BED: : 97 AGE: 24 SEX: F ATTEND: Dalton Olmos MD ADM DT: AUTHOR: Oniel Hoyt * ALL edits or amendments must be made on the electronic/computer document * OB Admission H P Hx Nursing Documentation Review Nursing data: The data set between the solid lines has been imported from nursing documentation. Any exceptions have been noted below under Provider comments. Current data Steroids prior to arrival: ROM date: ROM time: EGA (weeks/days): EGA at admit (weeks): EDC date: 09/29/19 Prior history : Para: 1 Term: : Abortions spontaneous: Abortions induced: Living children: Ectopic: Stillbirths: Live births: deaths: Number of previous C/S: Reported maternal labs/data Blood type: Rh type: Rubella: Hepatitis B: HIV exposure test: VDRL: Group B beta strep: Rho(D) immune globulin this preg: Monitor mode - UA: Feeding preference: Provider comments on imported nursing data: [] Chief complaint: baby check up HPI: with history of previous vaginal delivery that presents for baby check up. Pt denies previous care with this . She reports feeling well with good movement. Unsure of LMP. history: : 2 Term: 1 Living children: 1 Complications (prev preg): none Current : Admission EGA (wks/days): 34 EGA based on: ultrasound, 3rd trimester Conditions of : substance abuse Labs: Blood type: unknown Rh: unknown Rubella: unknown Hepatitis B: unknown HIV: unknown STD: unknown GBS: unknown Past medical history: denies PMH Past surgical history: denies PSH Social history: no alcohol use, no drug use, smoker Family history MOTHER Family History: Unremarkable FATHER Family History: Unremarkable Relation not specified for: Family History: Cancer Family History: Diabetes Family History: Heart disease Family History: Stroke Allergies Coded Allergies: No Known Allergies (08/06/17) Review of Systems Constitutional: Denies: chills, fatigue, fever, generalized weakness. Skin: Denies: rash. Eyes: Denies: visual loss/blurred. ENT: Denies: earache, sore throat, throat pain, voice change. Respiratory: Denies: SANCHEZ (dyspnea on exertion), productive cough (sputum), SOB, wheezing. Cardiovascular: Denies: chest pain, SANCHEZ (dyspnea on exertion), edema, orthopnea. GI: Denies: abdominal pain, constipation, diarrhea, hematemesis, hematochezia, melena, nausea, vomiting. : Reports: , previous pregnancies. Denies: dysuria, frequency, urgency. Musculoskeletal: Denies: extremity pain, extremity swelling, joint pain, joint swelling. Heme: Denies: bleeding. Endocrine: Denies: polydipsia, polyphagia, polyuria. Neuro: Denies: change in LOC, confusion, headache, numbness, vision change, weakness. Objective General VS: Last Documented: Result Date Time Temp 97.8 09/27 0909 B/P Mean 95.0 09/27 0859 B/P 124/78 09/27 0859 Pulse 114 09/27 0859 Vital Signs Date Temp Pulse Resp B/P B/P Mean Pulse Ox FiO2 09/27 97.8 114 124/78 95.0 Patient Weight Weight (lb): 140 Weight (oz): Weight (kg): 63.503 Physical Exam HEENT: normocephalic w/o injury, pupils equal, pupils reactive to light, no apparent hearing diff, no lesions of mouth Cardiac: regular rate and rhythm, no clinically sig murmur, no gallops Lungs: clear to auscultation, no rales, no rhonchi Breasts: deferred Neuro: Exam: alert, oriented x3, normal speech Abdomen: gravid, soft, no abnormal tenderness, no guarding, no rebound tenderness, normoactive bowel sounds Uterine activity: Monitor: toco Frequency (description): none Membranes: Membranes: Intact Lower extremities: Edema: none Baby A: Baby A baseline: 120 bpm Baby A variability: moderate 6-25 bpm Baby A accelerations: 15 X 15 Baby A decelerations: none Baby A FHR category: category 1 Result Findings/Data: Laboratory Tests: 09/27 1020 Hematology WBC (4.1 - 12.1 K/mm3) 14.8 H RBC (3.8 - 5.5 M/mm3) 4.16 Hgb (10.6 - 15.8 G/DL) 11.9 Hct (31.8 - 47.4 %) 37.2 MCV (80.1 - 101.1 fL) 89.4 MCH (25.3 - 35.3 pg) 28.6 MCHC (32.7 - 35.1 G/DL) 32.0 L RDW (12.2 - 16.4 %) 14.2 Plt Count (155 - 337 K/mm3) 353 H MPV (6.8 - 11.2 fL) 10.7 Gran % (37.8 - 82.6 %) 76.3 Lymph % (Auto) (14.1 - 45.4 %) 13.9 L Terrell % (Auto) (2.5 - 11.7 %) 6.5 Eos % (Auto) (0.0 - 6.2 %) 2.2 Baso % (Auto) (0.0 - 2.1 %) 0.4 Gran # (2.0 - 13.7 k/mm3) 11.31 Lymph # (Auto) (0.6 - 3.8 K/mm3) 2.06 Terrell # (Auto) (0.11 - 0.59 K/mm3) 0.97 H Eos # (Auto) (0.0 - 0.4 K/mm3) 0.32 Baso # (Auto) (0.0 - 0.1 K/mm3) 0.06 Immature Gran % (0.0 - 2.0 %) 0.7 Nucleated RBC % (0.0 - 1.0 /100WBC%) 0.0 Nucleated RBCs # (0.0 - 0.05 K/mm3) 0.00 Toxicology Urine Opiates Screen (<300 NG/ML SCcutoff) NONE DETECTED (NEG) Urine Barbiturates (<200 NG/ML SCcutoff) NONE DETECTED (NEG) Ur Phencyclidine Scrn (<25 NG/ML SCcutoff) NONE DETECTED (NEG) Ur Amphetamines Screen (<1000 NG/ML SCcutoff) NONE DETECTED (NEG) U Benzodiazepines Scrn (<200 NG/ML SCcutoff) NONE DETECTED (NEG) Urine Cocaine Screen (<300 NG/ML SCcutoff) NONE DETECTED (NEG) Urine Cannabinoids (<50 NG/ML SCcutoff) POSITIVE H Urines Urine Color (YELLOW DESCRIPT) YELLOW Urine Appearance (CLEAR DESCRIPT) CLEAR Urine pH (4.6 - 8.0 pH UNITS) 7.0 Ur Specific South Heart (1.001 - 1.035 SG) 1.011 Urine Protein (<30 (1+) mg/dL) NEGATIVE (0) Urine Glucose (UA) ((NEG) 0 mg/dL) NEGATIVE (0) Urine Ketones ((NEG) 0 mg/dL) 0 (NEG) Urine Blood ((NEG) 0 mg/DL) NEGATIVE (0) Urine Nitrite (NEG SCREEN) NEGATIVE (0) Urine Bilirubin ((NEG) 0 mg/dL) NEGATIVE (0) Urine Urobilinogen (<2.0 (1+) mg/dL) NORMAL (0) Ur Leukocyte Esterase ((NEG) 0 Leuk/mcL) NEGATIVE (0) Urine RBC (0 - 3 #RBC/HPF) 0-3 Urine WBC (0 - 3 #WBC/HPF) 0-3 Ur Squamous Epith Cells (NONE - SQepi /HPF) MODERATE >10 Urine Bacteria (NONE - FEW /HPF) FEW >1 Urine Mucus (NONE /LPF) RARE Recent Impressions: ULTRASOUND - US PREG AFTER 1ST TRI 09/27 1001 Report Impression - Status: SIGNED Entered: 09/27/2019 1050 Impression: 1. Single viable intrauterine gestation with estimated age 34 weeks and 0 days. 2. Limited negative anatomic survey. Advise followup if indicated. Impression By: [email or web address] - Marnie Suarez MD Diagnosis, Assessment Plan Diagnosis, Assessment Plan Free Text A P: with history of previous vaginal delivery that presents for baby check up. IUP 34.0wga Drug use in -dating by 3rd trimester u/s -reactive NST -positive drug testing for marijuana -recommended to d/c drug use, discussed adverse effects that may affect dispo: d/c home, f/u with PCP to est care Plan: discharge home Plan discussed with: patient at 1222 RPT #:[id number] END OF REPORT [facility] 2019-09-27 12:13:00 [facility] ([facility]) OB Admission / H P REPORT#:[id number] REPORT STATUS: Signed DATE:09/27/19 TIME: 1213 PATIENT: TRISHA CUADRA UNIT #: [id number] ROOM/BED: : 97 AGE: 24 SEX: F ATTEND: Dalton Olmos MD ADM DT: AUTHOR: Oniel Hoyt * ALL edits or amendments must be made on the electronic/computer document * OB Admission H P Hx Nursing Documentation Review Nursing data: The data set between the solid lines has been imported from nursing documentation. Any exceptions have been noted below under Provider comments. Current data Steroids prior to arrival: ROM date: ROM time: EGA (weeks/days): EGA at admit (weeks): EDC date: 09/29/19 Prior history : Para: 1 Term: : Abortions spontaneous: Abortions induced: Living children: Ectopic: Stillbirths: Live births: deaths: Number of previous C/S: Reported maternal labs/data Blood type: Rh type: Rubella: Hepatitis B: HIV exposure test: VDRL: Group B beta strep: Rho(D) immune globulin this preg: Monitor mode - UA: Feeding preference: Provider comments on imported nursing data: [] Chief complaint: baby check up HPI: with history of previous vaginal delivery that presents for baby check up. Pt denies previous care with this . She reports feeling well with good movement. Unsure of LMP. history: : 2 Term: 1 Living children: 1 Complications (prev preg): none Current : Admission EGA (wks/days): 34 EGA based on: ultrasound, 3rd trimester Conditions of : substance abuse Labs: Blood type: unknown Rh: unknown Rubella: unknown Hepatitis B: unknown HIV: unknown STD: unknown GBS: unknown Past medical history: denies PMH Past surgical history: denies PSH Social history: no alcohol use, no drug use, smoker Family history MOTHER Family History: Unremarkable FATHER Family History: Unremarkable Relation not specified for: Family History: Cancer Family History: Diabetes Family History: Heart disease Family History: Stroke Allergies Coded Allergies: No Known Allergies (08/06/17) Review of Systems Constitutional: Denies: chills, fatigue, fever, generalized weakness. Skin: Denies: rash. Eyes: Denies: visual loss/blurred. ENT: Denies: earache, sore throat, throat pain, voice change. Respiratory: Denies: SANCHEZ (dyspnea on exertion), productive cough (sputum), SOB, wheezing. Cardiovascular: Denies: chest pain, SANCHEZ (dyspnea on exertion), edema, orthopnea. GI: Denies: abdominal pain, constipation, diarrhea, hematemesis, hematochezia, melena, nausea, vomiting. : Reports: , previous pregnancies. Denies: dysuria, frequency, urgency. Musculoskeletal: Denies: extremity pain, extremity swelling, joint pain, joint swelling. Heme: Denies: bleeding. Endocrine: Denies: polydipsia, polyphagia, polyuria. Neuro: Denies: change in LOC, confusion, headache, numbness, vision change, weakness. Objective General VS: Last Documented: Result Date Time Temp 97.8 09/27 0909 B/P Mean 95.0 09/27 0859 B/P 124/78 09/27 0859 Pulse 114 09/27 0859 Vital Signs Date Temp Pulse Resp B/P B/P Mean Pulse Ox FiO2 09/27 97.8 114 124/78 95.0 Patient Weight Weight (lb): 140 Weight (oz): Weight (kg): 63.503 Physical Exam HEENT: normocephalic w/o injury, pupils equal, pupils reactive to light, no apparent hearing diff, no lesions of mouth Cardiac: regular rate and rhythm, no clinically sig murmur, no gallops Lungs: clear to auscultation, no rales, no rhonchi Breasts: deferred Neuro: Exam: alert, oriented x3, normal speech Abdomen: gravid, soft, no abnormal tenderness, no guarding, no rebound tenderness, normoactive bowel sounds Uterine activity: Monitor: toco Frequency (description): none Membranes: Membranes: Intact Lower extremities: Edema: none Baby A: Baby A baseline: 120 bpm Baby A variability: moderate 6-25 bpm Baby A accelerations: 15 X 15 Baby A decelerations: none Baby A FHR category: category 1 Result Findings/Data: Laboratory Tests: 09/27 1020 Hematology WBC (4.1 - 12.1 K/mm3) 14.8 H RBC (3.8 - 5.5 M/mm3) 4.16 Hgb (10.6 - 15.8 G/DL) 11.9 Hct (31.8 - 47.4 %) 37.2 MCV (80.1 - 101.1 fL) 89.4 MCH (25.3 - 35.3 pg) 28.6 MCHC (32.7 - 35.1 G/DL) 32.0 L RDW (12.2 - 16.4 %) 14.2 Plt Count (155 - 337 K/mm3) 353 H MPV (6.8 - 11.2 fL) 10.7 Gran % (37.8 - 82.6 %) 76.3 Lymph % (Auto) (14.1 - 45.4 %) 13.9 L Terrell % (Auto) (2.5 - 11.7 %) 6.5 Eos % (Auto) (0.0 - 6.2 %) 2.2 Baso % (Auto) (0.0 - 2.1 %) 0.4 Gran # (2.0 - 13.7 k/mm3) 11.31 Lymph # (Auto) (0.6 - 3.8 K/mm3) 2.06 Terrell # (Auto) (0.11 - 0.59 K/mm3) 0.97 H Eos # (Auto) (0.0 - 0.4 K/mm3) 0.32 Baso # (Auto) (0.0 - 0.1 K/mm3) 0.06 Immature Gran % (0.0 - 2.0 %) 0.7 Nucleated RBC % (0.0 - 1.0 /100WBC%) 0.0 Nucleated RBCs # (0.0 - 0.05 K/mm3) 0.00 Toxicology Urine Opiates Screen (<300 NG/ML SCcutoff) NONE DETECTED (NEG) Urine Barbiturates (<200 NG/ML SCcutoff) NONE DETECTED (NEG) Ur Phencyclidine Scrn (<25 NG/ML SCcutoff) NONE DETECTED (NEG) Ur Amphetamines Screen (<1000 NG/ML SCcutoff) NONE DETECTED (NEG) U Benzodiazepines Scrn (<200 NG/ML SCcutoff) NONE DETECTED (NEG) Urine Cocaine Screen (<300 NG/ML SCcutoff) NONE DETECTED (NEG) Urine Cannabinoids (<50 NG/ML SCcutoff) POSITIVE H Urines Urine Color (YELLOW DESCRIPT) YELLOW Urine Appearance (CLEAR DESCRIPT) CLEAR Urine pH (4.6 - 8.0 pH UNITS) 7.0 Ur Specific [place] Heart (1.001 - 1.035 SG) 1.011 Urine Protein (<30 (1+) mg/dL) NEGATIVE (0) Urine Glucose (UA) ((NEG) 0 mg/dL) NEGATIVE (0) Urine Ketones ((NEG) 0 mg/dL) 0 (NEG) Urine Blood ((NEG) 0 mg/DL) NEGATIVE (0) Urine Nitrite (NEG SCREEN) NEGATIVE (0) Urine Bilirubin ((NEG) 0 mg/dL) NEGATIVE (0) Urine Urobilinogen (<2.0 (1+) mg/dL) NORMAL (0) Ur Leukocyte Esterase ((NEG) 0 Leuk/mcL) NEGATIVE (0) Urine RBC (0 - 3 #RBC/HPF) 0-3 Urine WBC (0 - 3 #WBC/HPF) 0-3 Ur Squamous Epith Cells (NONE - SQepi /HPF) MODERATE >10 Urine Bacteria (NONE - FEW /HPF) FEW >1 Urine Mucus (NONE /LPF) RARE Recent Impressions: ULTRASOUND - US PREG AFTER 1ST TRI 09/27 1001 Report Impression - Status: SIGNED Entered: 09/27/2019 1050 Impression: 1. Single viable intrauterine gestation with estimated age 34 weeks and 0 days. 2. Limited negative anatomic survey. Advise followup if indicated. Impression By: [email or web address] - Marnie Suarez MD Diagnosis, Assessment Plan Diagnosis, Assessment Plan Free Text A P: with history of previous vaginal delivery that presents for baby check up. IUP 34.0wga Drug use in -dating by 3rd trimester u/s -reactive NST -positive drug testing for marijuana -recommended to d/c drug use, discussed adverse effects that may affect dispo: d/c home, f/u with PCP to est care Plan: discharge home Plan discussed with: patient at 1222 at 1443 RPT #:[id number] END OF REPORT [facility]
--- NOTE | 2024-07-02 18:03 | RAD REPORT ---
EXAM DESCRIPTION: US - Transvaginal OB - 07/02/2024 5:52 pm CLINICAL HISTORY: ABD CRAMPING, COMPARISON: <Comparisons> FINDINGS: No IUP visualize. The uterus is normal in size. Endometrium is slightly thickened to 5 mm. The maternal adnexa and ovaries are within normal limits. Normal Doppler blood flow was demonstrated to both ovaries. IMPRESSION: No IUP is visualized. If the patient has a positive HCG level, this would be considered a of unknown location. Follow-up serial HCG levels and pelvic sonography in 7-10 days would be recommended.
[2024-07-02 18:13] LABS: Absolute Basophils 0.1 K/uL (0-0.5); Absolute Eosinophils 0.5 K/uL (0-0.5); Absolute Lymphocytes (CBC) 3.2 K/uL (0.7-4.9); Absolute Monocytes 1.4 K/uL (0.1-1.3); Absolute Neutrophil 7.7 K/uL (1.8-8.0); Basophils % 0.8 % (0-1.3); Eosinophils % 3.6 % (0-4.4); Hematocrit 44.4 % (36.0-45.0); Hemoglobin 14.9 g/dL (12.0-15.0); Lymphocytes % 24.6 % (15.3-44.8); MCH 32.3 pg (27.0-35.0); MCHC 33.6 g/dL (32.0-36.0); MCV 96.2 fL (80-100); MPV 8.4 fL (7.6-11.3); Monocytes % 11.2 % (3.3-12.3); Neutrophils % 59.8 % (41.7-73.7); Platelets 451 thou/uL (152-406); RBC Red Blood Cell Count 4.61 M/uL (3.86-4.86)
[2024-07-02 18:30] LABS: Anion Gap 8.2 mEq/L (5.0-15.0); Potassium 4.2 mEq/L (3.5-5.1)
[2024-07-02 18:32] LABS: Specific Gravity 1.007 (1.005-1.030); Sqamous Epithelial <5 /HPF (None Seen); Urine Bacteria None Seen /HPF (<20); Urine Bilirubin NEGATIVE (Negative); Urine Blood 1+ (Negative); Urine Clarity Clear (Clear); Urine Color Colorless (Yellow); Urine Culture Reflex Order NOT NEEDED; Urine Glucose NEGATIVE (Negative); Urine Ketones NEGATIVE (Negative); Urine Microscopic Reflex YN ORDER UMIC; Urine Nitrite NEGATIVE (Negative); Urine Protein NEGATIVE (Negative); Urine RBC <5 /HPF (None Seen); Urine Urobilinogen Normal (Normal); Urine WBC <5 /HPF (<5)
--- NOTE | 2024-07-02 18:44 | ER ---
Nurse's Notes [facility] [place] Name: Trisha Cuadra Age: 28 yrs Sex: Female : 1995 Arrival Date: 07/02/2024 Time: 16:12 Bed 20 Private MD: Diagnosis: Threatened Presentation: 07/02 16:23 Chief complaint: Patient states: G3, P2 just found out she was 4 days ago. ll1 Still has spotting this week. No fever. Coronavirus screen: Client denies travel out of the [place] in the last 14 days. At this time, the client does not indicate any symptoms associated with coronavirus-19. Ebola Screen: Patient denies travel to an Ebola-affected area in the 21 days before illness onset. Initial Sepsis Screen: Does the patient meet any 2 criteria? No. Patient's initial sepsis screen is negative. Does the patient have a suspected source of infection? No. Patient's initial sepsis screen is negative. Risk Assessment: Do you want to hurt yourself or someone else? Patient reports no desire to harm self or others. Onset of symptoms was July 01, 2024. 16:23 Method Of Arrival: Ambulatory ll1 16:23 Acuity: LAURENCE 3 ll1 Triage Assessment: 16:23 General: Appears uncomfortable, Behavior is calm, cooperative, appropriate for age. ll1 Pain: Denies pain. : Reports cramping, vaginal bleeding that is light flow, spotty. 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 - Infectious Disease History:: Denies. - Social history:: Smoking status: Patient reports the use of cigarette tobacco products, smokes one-half pack cigarettes per day. Screenin:10 [facility] ED Fall Risk Assessment (Adult) History of falling in the last 3 months, kc6 including since admission No falls in past 3 months (0 pts) Confusion or Disorientation No (0 pts) Intoxicated or Sedated No (0 pts) Impaired Gait No (0 pts) Mobility Assist Device Used No (0 pt) Altered Elimination No (0 pt) Score/Fall Risk Level 0 - 2 = Low Risk. Abuse screen: Denies threats or abuse. Denies injuries from another. Nutritional screening: No deficits noted. Tuberculosis screening: No symptoms or risk factors identified. Assessment: 16:30 Obstetrical Assessment: General assessment: awake and alert, skin warm and dry, kc6 respirations even and unlabored. General: Appears in no apparent distress. comfortable, well groomed, well developed, Behavior is calm, cooperative, appropriate for age. Pain: Complains of pain in suprapubic area Quality of pain is described as crampy, dull. Neuro: Level of Consciousness is awake, alert, obeys commands, Oriented to person, place, time, situation, Appropriate for age. Cardiovascular: Capillary refill < 3 seconds. Respiratory: Airway is patent Trachea midline Respiratory effort is even, unlabored, Respiratory pattern is regular, symmetrical. GI: No signs and/or symptoms were reported involving the gastrointestinal system. : Reports vaginal bleeding that is brown, spotty, since today. EENT: No signs and/or symptoms were reported regarding the EENT system. Derm: No signs and/or symptoms reported regarding the dermatologic system. Skin is intact, is healthy with good turgor, Skin is pink, warm \T\ dry. Musculoskeletal: No signs and/or symptoms reported regarding the musculoskeletal system. Circulation, motion, and sensation intact. Capillary refill < 3 seconds, Range of motion: intact in all extremities. 17:30 Reassessment: Patient appears in no apparent distress at this time. No changes from kc6 previously documented assessment. Patient and/or family updated on plan of care and expected duration. Pain level reassessed. Patient is alert, oriented x 3, equal unlabored respirations, skin warm/dry/pink. 18:30 Reassessment: Patient appears in no apparent distress at this time. No changes from kc6 previously documented assessment. Patient and/or family updated on plan of care and expected duration. Pain level reassessed. Patient is alert, oriented x 3, equal unlabored respirations, skin warm/dry/pink. Vital Signs: 16:23 BP 118 / 78; Pulse 108; Resp 16; Temp 98.1; Pulse Ox 100% ; Weight 54.43 kg; Height 5 ll1 ft. 3 in. ; Pain 0/10; 16:23 Body Mass Index 21.26 (54.43 kg, 160.02 cm) ll1 16:23 Pain Scale: Adult ll1 ED Course: 16:14 Patient arrived in ED. ra3 16:16 Frank Matthew PA is PHCP. cp 16:16 Frank Pineda MD is Attending Physician. cp 16:18 Arm band placed on. ll1 16:24 Triage completed. ll1 17:16 Patient placed in an exam room, on a stretcher. ll1 17:23 Raina Pink, RN is Primary Nurse. kc6 17:53 Transvaginal Ob In Process Unspecified. EDMS 18:10 Patient has correct armband on for positive identification. Bed in low position. Call kc6 light in reach. Side rails up X 1. Adult w/ patient. Pulse ox on. NIBP on. Door closed. Noise minimized. Lights dimmed. Warm blanket given. Pillow given. 18:10 Inserted saline lock: 20 gauge in left antecubital area, using aseptic technique. Blood kc6 collected. Flushed with 10 mL NS. 18:26 PHCP role handed off by Frank Matthew PA kb 18:26 Zohra Lai FNP-C is PHCP. kb 18:59 No provider procedures requiring assistance completed. IV discontinued, intact, kc6 bleeding controlled, No redness/swelling at site. Pressure dressing applied. Administered Medications: No medications were administered Medication: 19:02 VIS not applicable for this client. kc6 Outcome: 18:44 Discharge ordered by . kb 19:01 Discharged to home ambulatory, kc6 19:01 Condition: good 19:01 Discharge instructions given to patient, Instructed on discharge instructions, follow up and referral plans. Demonstrated understanding of instructions, follow-up care, 19:02 Patient left the ED. kc6 Signatures: Dispatcher [employer] EDMS Zohra Lai FNP-C REWRITER-Ckb Frank Matthew PA PA cp Lewis, Lynsay RN RN ll1 Raina Pink RN RN kc6 Natividad Perez ra3
--- NOTE | 2024-07-02 18:44 | EDPHYS ---
Physician Documentation [facility] Name: Trisha Cuadra Age: 28 yrs Sex: Female : 1995 Arrival Date: 07/02/2024 Time: 16:12 Bed 20 Private MD: ED Physician Frank Pineda HPI: 07/02 17:45 This 28 yrs old Female presents to ER via Ambulatory with complaints of Vaginal cp Bleeding, + Preg <12wks - and cramping. 17:45 The patient presents to the emergency department with vaginal bleeding, that is light, cp with no clots. course: care: none, Leakage of Fluid: none appreciated, Ultrasound: the patient has not had an ultrasound. Associated signs and symptoms: Pertinent negatives: abdominal pain, fever, ruptured membranes, vaginal discharge, urinary symptoms. 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 - Infectious Disease History:: Denies. - Social history:: Smoking status: Patient reports the use of cigarette tobacco products, smokes one-half pack cigarettes per day. ROS: 17:50 Constitutional: Negative for body aches, chills, fever, poor PO intake, cp 17:50 Respiratory: Negative for cough, shortness of breath, wheezing, 17:50 Abdomen/GI: Negative for abdominal pain, vomiting, diarrhea, constipation, 17:50 : Positive for vaginal bleeding, Negative for urinary symptoms, hematuria, vaginal discharge, 17:50 All other systems are negative, 18:44 Constitutional: As per HPI kb Exam: 17:55 Head/Face: Normocephalic, atraumatic. cp 17:55 Constitutional: The patient appears in no acute distress, alert, awake, comfortable, non-toxic, well developed, well nourished, 17:55 Cardiovascular: Rate: tachycardic, Rhythm: regular, Edema: is not appreciated, 17:55 Respiratory: the patient does not display signs of respiratory distress, Respirations: normal, no use of accessory muscles, no retractions, labored breathing, is not present, Breath sounds: are clear throughout, no decreased breath sounds, no stridor, no wheezing, 17:55 Back: pain, is absent, ROM is normal, 17:55 Neuro: Orientation: to person, place \T\ time. Mentation: is normal, Motor: moves all fours, strength is normal, 17:55 Abdomen/GI: Inspection: abdomen appears normal, Bowel sounds: active, all quadrants, cp Palpation: soft, in all quadrants, nontender, in all quadrants, Vital Signs: 16:23 BP 118 / 78; Pulse 108; Resp 16; Temp 98.1; Pulse Ox 100% ; Weight 54.43 kg; Height 5 ll1 ft. 3 in. ; Pain 0/10; 16:23 Body Mass Index 21.26 (54.43 kg, 160.02 cm) ll1 16:23 Pain Scale: Adult ll1 MDM: 16:20 Patient medically screened. cp 18:43 Differential diagnosis: threatened Ab, inevitable Ab. Data reviewed: vital signs, kb nurses notes. 18:43 Counseling: I had a detailed discussion with the patient and/or guardian regarding the kb historical points, exam findings, and any diagnostic results supporting the discharge/admit diagnosis, lab results, radiology results, the need for outpatient follow up, an OB/Gyne specialist, to return to the emergency department if symptoms worsen or persist or if there are any questions or concerns that arise at home. 07/02 16:37 Order name: Abo/rh Typing; Complete Time: 18:27 07/02 16:37 Order name: Basic Metabolic Panel; Complete Time: 18:40 07/02 16:37 Order name: CBC with Diff; Complete Time: 18:21 07/02 18:21 Interpretation: Normal except: WBC 12.80; PLT 451; MNA 1.4. 07/02 16:37 Order name: Test, Urine; Complete Time: 18:40 07/02 16:37 Order name: Quantitative Hcg; Complete Time: 18:40 07/02 16:37 Order name: Urinalysis w/ reflexes; Complete Time: 18:40 07/02 16:37 Order name: US Transvaginal Ob; Complete Time: 18:21 07/02 18:21 Interpretation: Report reviewed. 07/02 16:37 Order name: IV Saline Lock; Complete Time: 18:10 cp 07/02 16:37 Order name: Labs collected and sent; Complete Time: 18:10 cp 07/02 16:37 Order name: NPO; Complete Time: 17:25 cp Administered Medications: No medications were administered Disposition Summary: 07/02/24 18:44 Discharge Ordered Notes: Location: Home kb Condition: Stable kb Diagnosis - Threatened kb Followup: kb - With: Emergency Department - When: As needed - Reason: Worsening of condition Followup: kb - With: Private Physician - When: 2 - 3 days - Reason: Recheck today's complaints, Continuance of care, Re-evaluation by your physician Discharge Instructions: - Discharge Summary Sheet kb - Threatened Miscarriage, [id number] kb - Vaginal Bleeding During , First Trimester, [id number] kb Forms: - Medication Reconciliation Form kb - Antibiotic Education kb - Prescription Opioid Use kb - Patient Portal Instructions kb - Leadership Thank You Letter kb Addendum: 07/13/2024 04:48 Co-signature as Attending Physician, Frank Pineda MD I agree with the assessment and c berg plan of care. Signatures: Dispatcher [employer] EDMS Zohra Lai, RADIO STATION ENGINEER-C RADIO STATION ENGINEER-Ckb Frank Pineda MD MD cha Page, Corey PA PA cp Dilip Duke, SAROJ RN ll1 Raina Pink RN RN kc6 Corrections: (The following items were deleted from the chart) 07/02 16:38 16:37 ABO/RH TYPING+BB.LAB.BRZ ordered. EDME EDMS 16:38 16:37 BASIC METABOLIC PANEL+C.LAB.BRZ ordered. EDMS EDMS 16:38 16:37 CBC+H.LAB.BRZ ordered. EDMS EDMS 16:38 16:37 Test, Urine+UC.LAB.BRZ ordered. EDMS EDMS 16:38 16:37 QUANTITATIVE HCG+C.LAB.BRZ ordered. EDMS EDMS 16:38 16:37 Urinalysis+U.LAB.BRZ ordered. EDMS EDMS 16:38 16:38 Transvaginal Ob+US.RAD.BRZ ordered. EDME EDMS 18:24 07/01 17:55 Constitutional: The patient appears in no acute distress, alert, awake, cp comfortable, non-toxic, well developed, well nourished, cp 07/02 18:07/01 17:55 Head/Face: Normocephalic, atraumatic. cp cp 07/02 18:07/01 17:55 Cardiovascular: Rate: tachycardic, Rhythm: regular, Edema: is not cp appreciated, cp 07/02 18:07/01 17:55 Respiratory: the patient does not display signs of respiratory distress, cp Respirations: normal, no use of accessory muscles, no retractions, labored breathing, is not present, Breath sounds: are clear throughout, no decreased breath sounds, no stridor, no wheezing, cp 07/02 18:07/01 17:55 Abdomen/GI: Inspection: abdomen appears normal, Bowel sounds: active, all cp quadrants, Palpation: soft, in all quadrants, nontender, in all quadrants, cp 07/02 18:07/01 17:55 Back: pain, is absent, ROM is normal, cp cp 07/02 18:07/01 17:55 Neuro: Orientation: to person, place \T\ time. Mentation: is normal, Motor: cp moves all fours, strength is normal, cp
[2024-07-02 19:47] VITALS: BP 118/78; TEMP 98.1; O2SAT 100
== END 2024-07-02 19:02 | disposition home or self-care (01) ==
LOC: ER 16:12
DX: O20.0 Threatened abortion (principal); F17.210 Nicotine dependence, cigarettes, uncomplicated
CPT/HCPCS: 36415; 76817; 80048; 81001; 81025; 84702; 85025; 86900; 86901; 99284

== ENCOUNTER 2024-07-22 17:20 | Emergency (ER) | payer SELFPAY ==
--- OUTSIDE RECORDS SUMMARY | 2024-07-22 17:36 | XMS REPORT | Continuity of Care Document ---
Author Name Unknown Address [address] [facility] [address] [place] [address] [facility] Address [address] [facility] [place] [address] Care Team Providers Care Joiner Name Role Phone PCP, PATIENT DOES NOT HAVE A Primary Care Physic mark Unavailable Eileen Hairston [facility] Attending Clinician JENNY Barbosa Attending Clinician Unavail TANESHA Vasquez Attending Clinician Tanesha Herrera DO Attending Clinician Francesco Shane Attending Clinician JACLYN Wang Attending Clinician Unavailable JACLYN NELSON Attending Clinician Unavailable Provider, Ang-Rmchp Temp Attending Clinician Cassie vailable Zander SAMANO Attending Clinician Unavailable Zander Simeon Attending Clinician Tong Hurtado Attending Clinician Unavailabl e Physician, No Primary or Family Admitting Clinic mark Unavailable Jada Mistry MD Unavailable Lenora Dudley MD Unavailable Unavailable Marissa Raphael MA Unavailable Unavailable Farrah Ortez MD Unavailable [phone] Kianna Potts MA Unavailable Unavailable Nellie Kenney MA Unavailable Unavailable He MATA Debra Unavailable Payers Payer Name Policy Type Policy Number Effective Date Expirati on Date Source [employer] [place] [employer] D [id number] 2022 00:00:00 [employer] [place] [employer] D [id number] 2014 00:00:00 2022 00:00:00 Capitated E [id number] 2022 00:00:00 2022 00:00:00 HTW-RMCHP [id number] 2022 00:00:00 Problems Condition Name Condition Details Condition Category Status Onset Date Resolution Date Last Treatment Date Treating Clinician Comments Source Rubella non-immune status, antepartum Rubella non-immune status, antepartum Disease Active 2012-11 00:00: 00 Overview: Formattin g of this note might be different from the original. [facility] Depression 36880-5 Active 2014-01-30 14:22:33 2.16.84 0.1.113 883.4.2 none noneMuluku MD Jada vallejo 42359-6 Active 2013-04-27 08:48:46 Jada Mistry 2.16.84 0.1.113 883.4.2 Pharyngiti s (Renamed from Pharyngeal inflammati on) Pharyngiti s (Renamed from Pharyngeal inflammati on) (J02.9) (222)MD Lenora uDdley 54425-7 Active 2014-02-20 16:26:32 DudleyLenora davis 2.16.84 0.1.113 883.4.2 Post-traum a response Post-traum a response (F43.29) (309.9)Pro gnosis: patient scheduled with Dr. Epstein in February for follow up. she has good support with family. no suicidal or homicidal ideation. will refill psych meds for 1 month. [facility] as of MD Jada Horvath 14422-8 Active 2014-01-30 17:36:51 Jada Mistry 2.16.84 0.1.113 883.4.2 POST-TRAUM ATIC STRESS DISORDER POST-TRAUM ATIC STRESS DISORDER 58317-6 Active 2014-01-30 14:24:49 2.16.84 0.1.113 883.4.2 Pregnancie s () Pregnancie s ()YAMILET David nts: 0. 64019-5 Active 2014-02-20 13:23:08 Marissa Raphael 2.16.84 0.1.113 883.4.2 Routine child health exam Routine child health exam (V20.2)MD Jada Arndt 20919-1 Active 2013-04-27 08:48:46 Jada Mistry 2.16.84 0.1.113 883.4.2 SURVEILLAN CE OF OTHER CONTRACEPT CASSY METHOD DEPO-PROVE RA SURVEILLAN CE OF OTHER CONTRACEPT CASSY METHOD DEPO-PROVE RA (V25.49)Pr ognosis: Discussed that depot shot will not protect against STDs. eat diet rich in calcium. as of MD Jada Horvath 37831-8 Active 2014-01-30 17:50:07 Jada Mistry 2.16.84 0.1.113 883.4.2 Deliveries (Para) Deliveries (Para)Comm ents: Julieta 00547-1 Active 2022-07-08 09:42:23 2.16.84 0.1.113 883.4.2 Pregnancie s () Pregnancie s ()C omments: 2. 15450-3 Active 2022-07-08 09:42:20 2.16.84 0.1.113 883.4.2 Term TermCommen ts: 2. 28978-4 Active 2022-07-08 09:42:27 2.16.84 0.1.113 883.4.2 Worried [...] ing. as of MD Farrah De Santiago 96162-5 Active 2022-07-08 13:08:31 Farrah Ortez 2.16.84 0.1.113 883.4.2 Encounter for gynecologi audrey examinatio n - 21-24 years old (Renamed from Encounter for gynecologi audrey examinatio n) Encounter for gynecologi audrey examinatio n - 21-24 years old (Renamed from Encounter for gynecologi audrey examinatio n) (Z01.419) (V72.31)YAMILET Jaramillo 98757-6 Active 2022-07-30 13:58:25 Kianna Potts 2.16.84 0.1.113 883.4.2 Deliveries (Para) Deliveries (Para)YAMILET Potts nts: 2. 53664-1 Active 2022-07-30 14:03:03 Kianna Potts 2.16.84 0.1.113 883.4.2 Pregnancie s () Pregnancie s ()YAMILET Mckenzie nts: 2. 21930-9 Active 2022-07-30 14:03:03 Kianna Potts 2.16.84 0.1.113 883.4.2 Term TermLaYAMILET wilson nts: 2. 50398-2 Active 2022-07-30 14:03:03 Kianna Potts 2.16.84 0.1.113 [...] s () Pregnancie s ()C omments: 2. 59914-5 Active 2022-08-25 14:20:40 2.16.84 0.1.113 883.4.2 Pregnancie s () Pregnancie s ()C omments: 0. 46540-1 Active 2022-08-25 14:20:40 2.16.84 0.1.113 883.4.2 Term TermCommen ts: 2. 61551-8 Active 2022-08-25 14:20:40 2.16.84 0.1.113 883.4.2 Vaginal [...] given. as of MD Farrah De Santiago 71235-9 Active 2022-08-29 14:29:34 Farrah Ortez 2.16.84 0.1.113 883.4.2 BMI 25.0-25.9, adult (Renamed from Body mass index (BMI) of 25.0 to 25.9 in adult) BMI 25.0-25.9, adult (Renamed from Body mass index (BMI) of 25.0 to 25.9 in adult) (Z68.25) (V85.21)YAMILET Lee 60666-7 Active 2022-09-01 13:39:13 Nellie Kenney 2.16.84 0.1.113 883.4.2 Nicotine dependence Nicotine dependence (F17.200) (305.1)Pha n, DO Debra 41192-6 Active 2022-09-01 13:53:34 Cutler, Vy 2.16.84 0.1.113 883.4.2 POST-TRAUM ATIC STRESS DISORDER POST-TRAUM ATIC STRESS DISORDERPh [place], [place] Debra 07489-2 Active 2022-09-01 13:53:55 CutlerGerhardy 2.16.84 0.1.113 883.4.2 Unspecifie d Diagnosis Unspecifie d DiagnosisR YAMILET shoemaker 74186-3 Active 2022-09-01 13:38:40 Nellie Kenney 2.16.84 0.1.113 883.4.2 Encounter for management and injection of depo-Prove ra (Renamed from Encounter for management and injection of injectable progestin contracept cassy) Encounter for management and injection of depo-Prove ra (Renamed from Encounter for management and injection of injectable progestin contracept cassy) (Z30.42) (V25.49)DO Debra Mcdonald 95258-7 Active 2022-09-01 16:12:07 Debra Cutler 12.25.83 0.1.113 883.4.2 Attention Deficit Hyperactiv ity Disorder Attention Deficit Hyperactiv ity DisorderMu MD Jada araujo 60512-7 Active 2014-01-30 17:44:37 Jada Mistry 12.25.83 0.1.113 883.4.2 Allergies, Adverse Reactions, Alerts Allergy Name Allergy Type Status Severity Reaction(s) Onset Date Inactive Date Treating Clinician Comments Source No Known Allergie s DA Active U 2020-11 00:00: 00 [facility] No Known Allergie s DA Active U 2020-11 00:00: 00 [facility] No Known Allergie s DA Active U 2020-11 00:00: 00 [facility] No Known Allergie s DA Active U 08-06 00:00: 00 [facility] No Known Allergie s DA Active U 08-06 00:00: 00 [facility] NO KNOWN ALLERGIE S Drug Class Active [facility] Social History Social Habit Start Date Stop Date Quantity Comments Source History of tobacco use Cigarette Smoker [facility] Alcohol Use: Non Drinker / N o Alcohol Use. 2.0.1.046982 .4.2 tobacco exposure 2.1 840.1.326593 .4.2 Tobacco/Smoke Exposure: Daily. 12.25.830.1.1138 83 .4.2 Drug Use: No drug use. 12.25.83 0.1.463563 .4.2 Primary Control Method: None. 12.25.830.1.1 39950 .4.2 Tobacco use: Current every d ay smoker. Smokes 1 pack of cigarettes per day. 2.840.1.704935 .4.2 Vaping/JUULing: Current ever y day smoker. 2..840.1.569544 .4.2 Alcohol intake 2023-04-02 00:00:00 2023-04-02 00:00:00 Current drinker of alcohol (finding) [facility] Exposure to SARS-CoV-2 (event) 2022-10-10 00:00:00 2022-10-20 15:08:00 Not sure [facility] Cigarettes smoked current (pack per day) - Reported 2022-10-20 00:00:00 2022-10-20 00:00:00 [facility] Cigarette pack-years 2022-10-20 00:00:00 2022-10-20 00:00:00 [facility] Tobacco use and exposure 2022-10-20 00:00:00 2022-10-20 00:00:00 Smokeless tobacco non-user [facility] Alcohol Comment 2022-10-20 00:00:00 2022-10-20 00:00:00 social [facility] Sex Assigned At 1995 00:00:00 1995 00:00:00 [facility] Smoking Status Start Date Stop Date Source Tobacco smoking consumption unknown Smokes tobacco daily 2022-10-20 00:00:00 [facility] Medications Ordered Medication Name Filled Medication Name Start Date Stop Date Current Medication? Ordering Clinician Indication Dosage Frequency Signature (SIG) Comments Components Source QUEtiapine 25 mg tablet 2021-11 10:37: 33 10-22 00:00 :00 No 25mg Take 25 mg by mouth. [facility] topiramate 100 mg tablet 2021-11 10:36: 44 Yes 100mg Take 100 mg by mouth. [facility] escitalopra m oxalate 20 mg tablet 2021-11 10:36: 44 Yes 25mg Take 25 mg by mouth. [facility] DM/P-EPHED/ ACETAMINOPH /DOXYLAM (NYQUIL ORAL) 2021-11 15:48: 57 Yes Take by mouth. [facility] Depo-Opening Machine Cleaner a 150 MG/ML Intramuscul ar Suspension 2021-11 0 00:00: 00 No 1{emre liter} Depo-Prove ra 150 MG/ML Intramuscu lar Suspension ; 1 (one) milliliter every three months for 90 days Quantity: 1 {Millilite r}Refills: 3Ordered: , DO VyStart: 2Comments: 1 injection every 3 months for 1 year 1 injection every 3 months for 1 year 2.16.84 0.1.113 883.4.2 Depo-Opening Machine Cleaner a 150 MG/ML Intramuscul ar Suspension 2021-11 0 00:00: 00 No 1{emre liter} Depo-Prove ra 150 MG/ML Intramuscu lar Suspension ; 1 (one) milliliter every three months for 90 days Quantity: 1 {Millilite r}Refills: 3Ordered: , DO VyStart: 2Comments: 1 injection every 3 months for 1 year 1 injection every 3 months for 1 year 2.16.84 0.1.113 883.4.2 Depo-Opening Machine Cleaner a 150 MG/ML Intramuscul ar Suspension 2021-11 0 00:00: 00 No 1{emre liter} Depo-Prove ra 150 MG/ML Intramuscu lar Suspension ; 1 (one) milliliter every three months for 90 days Quantity: 1 {Millilite r}Refills: 3Ordered: , DO VyStart: 2Comments: 1 injection every 3 months for 1 year 1 injection every 3 months for 1 year 2.16.84 0.1.113 883.4.2 Depo-Opening Machine Cleaner a 150 MG/ML Intramuscul ar Suspension 2021-11 [...] FLU, 15-6.25-325 MG/15ML (Oral Liquid) 2021-11 0- 14:: 08-25 00:00 :00 No VICKS NYQUIL [...] & FLU, 15-6.25-325 MG/15ML (Oral Liquid) 2021-11 017 14:19: 08-25 00:00 :00 No VICKS NYQUIL COLD & FLU, 15-6.25-32 5MG/15ML (Oral Liquid); (15-6.25-3 25 MG/15ML) End: 2Status: Discontinu ed 2.16.84 0.1.113 883.4.2 VICKS NYQUIL COLD & FLU, 15-6.25-325 MG/15ML (Oral Liquid) 2021-11 14:19: 08-25 00:00 :00 No VICKS NYQUIL [...] FLU, 15-6.25-325 MG/15ML (Oral Liquid) 2021-11 14:19: 08-25 00:00 :00 No VICKS NYQUIL [...] daily (5 MG)Status: Inactive 2.16.84 0.1.113 883.4.2 VICKS NYQUIL COLD & [...] 30 days Quantity: 30 {Tablet}Re fills: 0Ordered: 4MuMD gayle RamaStart: End: 4Status: Inactive 2.16.84 0.1.113 883.4.2 QUETIAPINE [...] Quantity: 30 {Tablet}Re fills: 0Ordered: MD Floyd HorvathaStpiqua: 4 End: 4Status: Inactive 2.16.84 0.1.113 883.4.2 [...] days Quantity: 30 {Tablet}Re fills: 0Ordered: 4MD Fede RamaStart: 4 End: 4Status: Inactive 2.16.84 0.1.113 [...] 08-02 19:00: 00 10-22 16:38 :30 No [id number] 150mg [facility] D-METHORPHA N/PE/ACETAM INOPHEN (VICKS DAYQUIL ORAL) 08-02 13:54: 04 Yes Take by mouth. [facility] DM/P-EPHED/ ACETAMINOPH /DOXYLAM (NYQUIL ORAL) 08-02 13:54: 03 Yes Take by mouth. [facility] ZITHROMAX Z-DALIA, 250MG (Oral Tablet) 04-18 00:00: 00 04-23 00:00 :00 No 1{Table t} QD ZITHROMAX Z-DALIA, 250MG (Oral Tablet); 1 Tablet daily for 5 days Quantity: 6 {Tablet}Re fills: 0Ordered: Lopez, EricStart: 3 End: 3Status: InactiveCo mments: 2 [...] Systolic blood pressure 2022-10-20 21:43:00 105 mm[Hg] [facility] Diastolic blood pressure 2022-10-20 21:43:00 77 mm[Hg] [facility] Heart rate 2022-10-20 21:43:00 96 /min [facility] Body temperature 2022-10-20 21:43:00 36.78 Addie [facility] Respiratory rate 2022-10-20 21:43:00 16 /min [facility] Body height 2022-10-20 21:43:00 160 cm [facility] Body weight 2022-10-20 21:43:00 61.009 kg [facility] BMI 2022-10-20 21:43:00 23.83 kg/m2 [facility] Systolic blood pressure 2022-10-18 22:20:00 136 mm[Hg] [facility] Diastolic blood pressure 2022-10-18 22:20:00 90 mm[Hg] [facility] Heart rate 2022-10-18 22:20:00 98 /min [facility] Body temperature 2022-10-18 22:20:00 37.11 Addie [facility] Respiratory rate 2022-10-18 22:20:00 20 /min [facility] Body weight 2022-10-18 22:20:00 60.782 kg [facility] Oxygen saturation in Arterial blood by Pulse oximetry 2022-10-18 22:20:00 100 /min [facility] Temperature 2022-09-01 13:33:48 97.2 [degF] Method: Oral 2.16.840.1.26468 3.4.2 Pulse 2022-09-01 13:33:48 90 /min Pattern: Regular 2.16.840.1.61764 3.4.2 Respiration Rate 2022-09-01 13:33:48 18 /min Pattern: Unlabored 2.16.840.1.13428 3.4.2 BP Systolic 2022-09-01 13:33:48 98 mm[Hg] Patient Position: Sitting; Cuff Location: Left Arm; Cuff Size: Standard 2.16.840.1.86446 3.4.2 BP Diastolic 2022-09-01 13:33:48 66 mm[Hg] Patient Position: Sitting; Cuff Location: Left Arm; Cuff Size: Standard 2.16.840.1.53570 3.4.2 Weight 2022-09-01 13:33:48 141.5 [lb_av] 2.16.840.1.78470 3.4.2 Height 2022-09-01 13:33:48 62 [in_us] 2.16.840.1.41666 3.4.2 BMI 2022-09-01 13:33:48 25.88 kg/m2 2.16.840.1.65737 3.4.2 Temperature 2022-08-25 14:15:36 97 [degF] Method: Oral 2.16.840.1.51103 3.4.2 Pulse 2022-08-25 14:15:36 122 /min Pattern: Regular 2.16.840.1.56376 3.4.2 Respiration Rate 2022-08-25 14:15:36 20 /min Pattern: Unlabored 2.16.840.1.68123 3.4.2 BP Systolic 2022-08-25 14:15:36 116 mm[Hg] Patient Position: Sitting; Cuff Location: Left Arm; Cuff Size: Standard 2.16.840.1.74289 3.4.2 BP Diastolic 2022-08-25 14:15:36 80 mm[Hg] Patient Position: Sitting; Cuff Location: Left Arm; Cuff Size: Standard 2.16.840.1.58492 3.4.2 Weight 2022-08-25 14:15:36 142.5 [lb_av] 2.16.840.1.14711 3.4.2 Height 2022-08-25 14:15:36 62 [in_us] 2.16.840.1.62663 3.4.2 BMI 2022-08-25 14:15:36 26.06 kg/m2 2.16.840.1.02654 3.4.2 Temperature 2022-07-30 14:00:23 99 [degF] Method: Oral 2.16.840.1.98117 3.4.2 Pulse 2022-07-30 14:00:23 114 /min Pattern: Regular 2.16.840.1.92359 3.4.2 Respiration Rate 2022-07-30 14:00:23 16 /min Pattern: Unlabored 2.16.840.1.26642 3.4.2 BP Systolic 2022-07-30 14:00:23 115 mm[Hg] Patient Position: Sitting; Cuff Location: Left Arm; Cuff Size: Standard 2.16.840.1.84372 3.4.2 BP Diastolic 2022-07-30 14:00:23 75 mm[Hg] Patient Position: Sitting; Cuff Location: Left Arm; Cuff Size: Standard 2.16.840.1.33389 3.4.2 Weight 2022-07-30 14:00:23 141.25 [lb_av] 2.16.840.1.38302 3.4.2 Height 2022-07-30 14:00:23 62 [in_us] 2.16.840.1.61408 3.4.2 BMI 2022-07-30 14:00:23 25.83 kg/m2 2.16.840.1.26400 3.4.2 Temperature 2022-07-08 09:40:30 98.3 [degF] Method: Oral 2.16.840.1.84665 3.4.2 Pulse 2022-07-08 09:40:30 101 /min Pattern: Regular 2.16.840.1.54660 3.4.2 Respiration Rate 2022-07-08 09:40:30 15 /min Pattern: Unlabored 2.16.840.1.63467 3.4.2 BP Systolic 2022-07-08 09:40:30 119 mm[Hg] Patient Position: Sitting; Cuff Location: Left Arm; Cuff Size: Standard 2.16.840.1.56972 3.4.2 BP Diastolic 2022-07-08 09:40:30 72 mm[Hg] Patient Position: Sitting; Cuff Location: Left Arm; Cuff Size: Standard 2.16.840.1.64182 3.4.2 Weight 2022-07-08 09:40:30 145.5 [lb_av] 2.16.840.1.98062 3.4.2 Height 2022-07-08 09:40:30 62 [in_us] 2.16.840.1.18532 3.4.2 BMI 2022-07-08 09:40:30 26.61 kg/m2 2.16.840.1.58860 3.4.2 Temperature 2014-02-20 15:14:00 99.1 [degF] 2.16.840.1.12072 3.4.2 Pulse 2014-02-20 15:14:00 125 /min Pattern: Regular 2.16.840.1.30768 3.4.2 Respiration Rate 2014-02-20 15:14:00 20 /min 2.16.840.1.76169 3.4.2 BP Systolic 2014-02-20 15:14:00 116 mm[Hg] 2.16.840.1.84899 3.4.2 BP Diastolic 2014-02-20 15:14:00 73 mm[Hg] 2.16.840.1.77008 3.4.2 Weight 2014-02-20 15:14:00 107 [lb_av] 2.16.840.1.56688 3.4.2 Height 2014-02-20 15:14:00 62 [in_us] 2.16.840.1.24451 3.4.2 BMI 2014-02-20 15:14:00 19.57 kg/m2 2.16.840.1.56053 3.4.2 BMI Percentile 2014-02-20 15:14:00 35 % 2.16.840.1.75623 3.4.2 Temperature 2014-01-30 14:14:54 98.6 [degF] Method: Oral 2.16.840.1.44843 3.4.2 Pulse 2014-01-30 14:14:54 95 /min Pattern: Regular 2.16.840.1.13817 3.4.2 Respiration Rate 2014-01-30 14:14:54 20 /min Pattern: Unlabored 2.16.840.1.66834 3.4.2 BP Systolic 2014-01-30 14:14:54 121 mm[Hg] Patient Position: Sitting; Cuff Location: Left Arm; Cuff Size: Standard 2.16.840.1.10852 3.4.2 BP Diastolic 2014-01-30 14:14:54 81 mm[Hg] Patient Position: Sitting; Cuff Location: Left Arm; Cuff Size: Standard 2.16.840.1.00160 3.4.2 Weight 2014-01-30 14:14:54 118.125 [lb_av] 2.16.840.1.75208 3.4.2 Height 2014-01-30 14:14:54 62 [in_us] 2.16.840.1.31788 3.4.2 BMI 2014-01-30 14:14:54 21.61 kg/m2 2.16.840.1.84738 3.4.2 BMI Percentile 2014-01-30 14:14:54 62 % 2.16.840.1.52564 3.4.2 Temperature 2013-04-25 11:03:46 96.9 [degF] Method: Oral 2.16.840.1.07430 3.4.2 Pulse 2013-04-25 11:03:46 63 /min Pattern: Regular 2.16.840.1.16524 3.4.2 Respiration Rate 2013-04-25 11:03:46 16 /min Pattern: Unlabored 2.16.840.1.17791 3.4.2 BP Systolic 2013-04-25 11:03:46 95 mm[Hg] Patient Position: Sitting; Cuff Location: Right Arm; Cuff Size: Standard 2.16.840.1.39430 3.4.2 BP Diastolic 2013-04-25 11:03:46 62 mm[Hg] Patient Position: Sitting; Cuff Location: Right Arm; Cuff Size: Standard 2.16.840.1.40842 3.4.2 Weight 2013-04-25 11:03:46 114.25 [lb_av] 2.16.840.1.81342 3.4.2 Height 2013-04-25 11:03:46 63.5 [in_us] 2.16.840.1.89950 3.4.2 BMI 2013-04-25 11:03:46 19.92 kg/m2 2.16.840.1.90638 3.4.2 BMI Percentile 2013-04-25 11:03:46 46 % 2.16.840.1.34704 3.4.2 Temperature 2013-04-18 17:19:47 99.7 [degF] Method: Oral 2.16.840.1.56217 3.4.2 Pulse 2013-04-18 17:19:47 118 /min Pattern: Regular 2.16.840.1.29336 3.4.2 Respiration Rate 2013-04-18 17:19:47 20 /min Pattern: Unlabored 2.16.840.1.87473 3.4.2 BP Systolic 2013-04-18 17:19:47 125 mm[Hg] Patient Position: Sitting; Cuff Location: Left Arm; Cuff Size: Standard 2.16.840.1.67255 3.4.2 BP Diastolic 2013-04-18 17:19:47 80 mm[Hg] Patient Position: Sitting; Cuff Location: Left Arm; Cuff Size: Standard 2.16.840.1.86467 3.4.2 Weight 2013-04-18 17:19:47 113.2 [lb_av] 2.16.840.1.64860 3.4.2 Temperature 2004-09-09 09:15:00 98.2 [degF] Method: Oral 2.16.840.1.00119 3.4.2 Pulse 2004-09-09 09:15:00 116 /min Pattern: Regular 2.16.840.1.62971 3.4.2 Respiration Rate 2004-09-09 09:15:00 20 /min Pattern: Unlabored 2.16.840.1.05263 3.4.2 BP Systolic 2004-09-09 09:15:00 80 mm[Hg] Patient Position: Sitting; Cuff Location: Right Arm; Cuff Size: Standard 2.16.840.1.14155 3.4.2 BP Diastolic 2004-09-09 09:15:00 52 mm[Hg] Patient Position: Sitting; Cuff Location: Right Arm; Cuff Size: Standard 2.16.840.1.05143 3.4.2 Weight 2004-09-09 09:15:00 46 [lb_av] 2.16.840.1.63144 3.4.2 Height 2004-09-09 09:15:00 46 [in_us] 2.16.840.1.76548 3.4.2 BMI 2004-09-09 09:15:00 15.28 kg/m2 2.16.840.1.55455 3.4.2 BMI Percentile 2004-09-09 09:15:00 46 % 2.16.840.1.28963 3.4.2 Head Circumference 2004-09-09 09:15:00 0.00 cm 2.16.840.1.02884 3.4.2 Temperature 2004-01-29 16:16:00 97.3 [degF] Method: Oral 2.16.840.1.40837 3.4.2 Pulse 2004-01-29 16:16:00 84 /min Pattern: Regular 2.16.840.1.14964 3.4.2 Respiration Rate 2004-01-29 16:16:00 20 /min Pattern: Unlabored 2.16.840.1.47854 3.4.2 BP Systolic 2004-01-29 16:16:00 82 mm[Hg] Patient Position: Sitting; Cuff Location: Right Arm; Cuff Size: Small 2.16.840.1.18782 3.4.2 BP Diastolic 2004-01-29 16:16:00 50 mm[Hg] Patient Position: Sitting; Cuff Location: Right Arm; Cuff Size: Small 2.16.840.1.77312 3.4.2 Weight 2004-01-29 16:16:00 45 [lb_av] 2.16.840.1.25453 3.4.2 Height 2004-01-29 16:16:00 45.5 [in_us] 2.16.840.1.67897 3.4.2 BMI 2004-01-29 16:16:00 15.28 kg/m2 2.16.840.1.37449 3.4.2 BMI Percentile 2004-01-29 16:16:00 50 % 2.16.840.1.52748 3.4.2 Head Circumference 2004-01-29 16:16:00 0.00 cm 2.16.840.1.67016 3.4.2 Temperature 2004-01-26 11:34:00 98.4 [degF] Method: Oral 2.16.840.1.22421 3.4.2 Pulse 2004-01-26 11:34:00 88 /min Pattern: Regular 2.16.840.1.70138 3.4.2 Respiration Rate 2004-01-26 11:34:00 12 /min Pattern: Unlabored 2.16.840.1.96910 3.4.2 Weight 2004-01-26 11:34:00 45 [lb_av] 2.16.840.1.60252 3.4.2 Height 2004-01-26 11:34:00 0 [in_us] 2.16.840.1.75934 3.4.2 Head Circumference 2004-01-26 11:34:00 0.00 cm 2.16.840.1.40796 3.4.2 Temperature 2002-08-04 14:46:00 98.8 [degF] Method: Oral 2.16.840.1.93824 3.4.2 Pulse 2002-08-04 14:46:00 92 /min Pattern: Regular 2.16.840.1.51282 3.4.2 Respiration Rate 2002-08-04 14:46:00 16 /min Pattern: Unlabored 2.16.840.1.25478 3.4.2 BP Systolic 2002-08-04 14:46:00 94 mm[Hg] Patient Position: Sitting; Cuff Location: Right Arm; Cuff Size: Small 2.16.840.1.81934 3.4.2 BP Diastolic 2002-08-04 14:46:00 60 mm[Hg] Patient Position: Sitting; Cuff Location: Right Arm; Cuff Size: Small 2.16.840.1.76266 3.4.2 Weight 2002-08-04 14:46:00 37 [lb_av] 2.16.840.1.52086 3.4.2 Height 2002-08-04 14:46:00 0 [in_us] 2.16.840.1.60432 3.4.2 Head Circumference 2002-08-04 14:46:00 0.00 cm 2.16.840.1.73393 3.4.2 Procedures Procedure Date / Time Performed Performing Clinician Source NOTICE OF PRIVACY PRACTICES 2023-04-02 07:25:40 Doctor Unassigned, [place] [facility] CONSENT/REFUSAL FOR DIAGNOSI S AND TREATMENT 2023-04-02 07:25:23 Doctor Unassigned, [place] [facility] NOTICE OF PRIVACY PRACTICES 2022-10-18 22:11:18 Doctor Unassigned, [place] [facility] CONSENT/REFUSAL FOR DIAGNOSI S AND TREATMENT 2022-10-18 22:10:55 Doctor Unassigned, [place] [id number] FOR [facility]ESITY (G0447) 2022-09-01 00:00:00 Debra Cutler 2.16.840.1.474044.4 .2 DOCUMENTATION OF FOLLOW-UP PLAN FOR PATIENT WITH BMI ABOVE NORMAL (G8417) 2022-09-01 00:00:00 Debra Cutler 2.16.840.1.047130.4 .2 PATIENT IDENTIFIED A TOBACCO USER RECEIVED TOBACCO CESSATION INTERVENTION (COUNSELING AND/OR PHARMACOTHERAPY) (G9906) 2022-09-01 00:00:00 Debra Cutler 2.16.840.1.870444.4 .2 No Known Past Surgical History 2022-09-01 00:00:00 Nellie Kenney 2.16.840.1.875677.4 .2 PATIENT SCREENED FOR TOBACCO USE AND IDENTIFIED A TOBACCO USER (G9902) 2022-09-01 00:00:00 Debra Cutler 2.16.840.1.398226.4 .2 SCREENING FOR TOBACCO USE (4004F) 2022-09-01 00:00:00 Debra Cutler 2.16.840.1.099399.4 .2 ADMINISTRATION OF DEPOT MEDROXYPROGESTERONE ACETATE 150 MG BY INJECTION (J1050) 2022-09-01 00:00:00 Debra Cutler 2.16.840.1.604520.4 .2 INCISION AND DRAINAGE, CYST, VAGINA (04486) 2022-08-25 00:00:00 Farrah Ortez 2.16.840.1.876268.4 .2 Pap Smear 2022-07-10 00:00:00 Nellie Kenney 2.16.840.1.667950.4 .2 Patient received annual dental check-up 2022-07-10 00:00:00 Nellie Kenney 2.16.840.1.576610.4 .2 THER/PROPH/DIAG INJ, SC/IM (47149) 2014-01-30 00:00:00 AdrielFloyd goldsteina 2.16.840.1.180538.4 .2 No Known Past Surgical History 2013-04-18 00:00:00 2.16.840.1.493132.4 .2 MEDICAL SERVICES AFTER POSTE D HOURS (26127) For all [facility] Patients 2013-04-18 00:00:00 Francesco Shane 2.16.840.1.522487.4 .2 No Known Past Surgical History 2013-04-18 00:00:00 2.16.840.1.506431.4 .2 No Known Past Surgical History 2013-04-18 00:00:00 Kianna Potts 2.16.840.1.697761.4 .2 No Known Past Surgical History 2013-04-18 00:00:00 2.16.840.1.784507.4 .2 Annual Eye Exam Donavon Marissa 2.16.840.1.1 58109.4 .2 Flu Vaccine Donavon Marissa 2.16.840.1.1138 83.4 .2 Patient received annual dental check-up Donavon Marissa 2.16.840.1.972494.4 .2 Annual Eye Exam Kianna Potts 2.16.840.1.1 19352.4 .2 Pap Smear 2.16.840.1.1138 83.4 .2 Patient received annual dental check-up Kianna Potts 2.16.840.1.699612.4 .2 Pap Smear Kianna Potts 2.16.840.1.1138 83.4 .2 Annual Eye Exam 2.16.840.1.1 12471.4 .2 Flu Vaccine 2.16.840.1.1138 83.4 .2 Pap Smear 2.16.840.1.1138 83.4 .2 Patient received annual dental check-up 2.16.840.1.309897.4 .2 Annual Eye Exam Nellie Kenney 2.16.840.1. 861515.4 .2 Plan of Care Planned Activity Planned Date Details Comments Source Diagnostic Test Pending 2022-09-01 16:12:07 *Lucio estar urine (79994) [code = 52583] Diagnostic Test Pending 2022-09-01 16:12:07 *Lucio estar urine (21149) [code = 61086] Diagnostic Test Pending 2022-07-30 14:04:11 HEPA TITIS C ANTIBODY (46437) [code = 06469] Diagnostic Test Pending 2022-07-30 14:04:10 HEPA TITIS B SURFACE ANTIGEN (24366) [code = 31376] Diagnostic Test Pending 2022-07-30 14:04:10 HIV- 1 AG W/HIV-1 & HIV-2 AB (87839) [code = 57782] Diagnostic Test Pending 2022-07-30 14:04:10 HEPA TITIS B SURFACE ANTIGEN (58489) [code = 12443] Diagnostic Test Pending 2022-07-30 14:04:10 HEPA TITIS B SURFACE ANTIGEN (66155) [code = 24301] Diagnostic Test Pending 2022-07-30 14:04:10 HEPA TITIS B SURFACE ANTIGEN (49703) [code = 37598] Diagnostic Test Pending 2022-07-30 14:04:10 HEPA TITIS B SURFACE ANTIGEN (96034) [code = 37610] Diagnostic Test Pending 2022-07-30 14:04:10 HEPA TITIS B SURFACE ANTIGEN (89637) [code = 77598] Diagnostic Test Pending 2022-07-30 14:04:10 HEPA TITIS B SURFACE ANTIGEN (46508) [code = 60038] Diagnostic Test Pending 2022-07-30 14:04:10 HEPA TITIS B SURFACE ANTIGEN (45034) [code = 92202] Diagnostic Test Pending 2022-07-30 13:58:25 PAP with reflex HPV (45715) [code = 89800] Diagnostic Test Pending 2013-04-25 11:41:30 HERP ES SIMPLEX VIRUS (HSV) CULTURE AND TYPING (64460) [code = 80560] Diagnostic Test Pending 2013-04-25 11:41:30 HERP ES SIMPLEX VIRUS (HSV) CULTURE AND TYPING (92836) [code = 79738] Diagnostic Test Pending 2013-04-25 11:41:30 HERP ES SIMPLEX VIRUS (HSV) CULTURE AND TYPING (30053) [code = 00815] Diagnostic Test Pending 2013-04-25 11:41:30 HERP ES SIMPLEX VIRUS (HSV) CULTURE AND TYPING (21958) [code = 17823] Diagnostic Test Pending 2013-04-25 11:41:30 HERP ES SIMPLEX VIRUS (HSV) CULTURE AND TYPING (07587) [code = 42805] Diagnostic Test Pending 2013-04-25 11:41:30 HERP ES SIMPLEX VIRUS (HSV) CULTURE AND TYPING (36860) [code = 88393] Diagnostic Test Pending 2013-04-25 11:41:30 HERP ES SIMPLEX VIRUS (HSV) CULTURE AND TYPING (66620) [code = 88442] Diagnostic Test Pending 2013-04-25 11:41:30 HERP ES SIMPLEX VIRUS (HSV) CULTURE AND TYPING (29023) [code = 83285] Diagnostic Test Pending 2013-04-25 11:41:30 HERP ES SIMPLEX VIRUS (HSV) CULTURE AND TYPING (93004) [code = 59117] Diagnostic Test Pending 2013-04-25 11:41:30 HERP ES SIMPLEX VIRUS (HSV) CULTURE AND TYPING (37416) [code = 11928] Diagnostic Test Pending 2013-04-25 11:41:30 HERP ES SIMPLEX VIRUS (HSV) CULTURE AND TYPING (00446) [code = 93372] Encounters Start Date/Time End Date/Time Encounter Type Admission Type Attending [facility] Facility Care Department Encounter ID Source 2023-03-02 23:43:18 Outpatient LIVST LIVST [id number] [facility] 2022-08-30 13:43:17 Outpatient Eileen Hairston [facility] [id number] [facility] 2022-08-27 15:23:04 Outpatient Eileen Hairston [facility] [id number] [facility] 2022-08-26 14:17:10 Outpatient Eileen Hairston [facility] [id number] [facility] 2022-08-23 14:23:18 Outpatient Eileen Hairston [facility] [id number] Bessie Snowden [facility] 2022-08-20 11:51:44 Outpatient Eileen Hairston [facility] [id number] Bessie Snowden [facility] 2022-07-04 08:27:07 Outpatient [facility] [id number] Bessie Snowden [facility] 2022-05-08 19:01:49 Outpatient [facility] [id number] [facility] 2022-02-01 09:09:14 Outpatient [facility] [id number] [facility] 2020-03-24 22:22:00 Inpatient HCACR CHRIS [id number] [facility] 2020-03-10 18:15:00 Inpatient HCAKW ERPD [id number] [facility] 2019-11-17 18:55:00 Inpatient [facility]CAKW CHRIS [id number] [facility] 2023-04-02 02:37:00 2023-04-02 03:00:00 Emergency TANESHA SHIELDS [facility] ERT [id number] [facility] 2023-04-02 02:37:00 2023-04-02 03:00:00 Emergency Tanesha Cason [facility] [id number] 350.1.13.10 4.2.7.2.686 [id number] [facility] 2023-01-25 21:06:00 2023-01-26 01:17:00 Emergency EM Francesco Shane HCAKW CHRIS [id number] [facility] 2022-10-20 15:45:00 2022-10-20 16:23:21 Outpatient JACLYN CARRERA [facility]ORDYN [facility] [id number] [facility] 2022-10-20 15:45:00 2022-10-20 16:23:21 Office Visit Provider, Mark-Rmchp Jaclyn Bautista [facility] MANAGER CHILD [facility] 1.2.840.114 350.1.13.10 4.2.7.2.686 [id number] [facility] 2022-10-18 16:22:00 2022-10-18 17:40:00 Emergency X Zander SAMANO [facility] ERT [id number] [facility] 2022-10-18 16:22:00 2022-10-18 17:40:00 Emergency Zander Samano Anabelle [facility] 1..840.114 350.1.13.10 4.2.7.2.686 [id number] [facility] 2022-09-01 13:30:00 2022-09-01 16:59:41 Office Visit 0 [employer] [id number] 2022-09-01 13:14:00 2022-09-01 13:14:00 Outpatient [facility] [id number] [facility] 2022-08-25 14:00:00 2022-08-29 14:29:49 Office Visit 0 [facility] [id number] 2022-08-25 14:18:00 2022-08-25 14:18:00 Outpatient [facility] [id number] [facility] 2022-08-25 14:01:23 2022-08-25 14:01:23 Review 0 [employer] [id number] 2022-07-30 13:45:00 2022-08-01 09:38:40 Office Visit 0 [facility] [id number] 2022-07-30 13:41:00 2022-07-30 13:41:00 Outpatient [facility] [id number] [facility] 2022-07-08 09:30:00 2022-07-08 13:11:13 Office Visit 0 [facility] [id number] 2022-07-08 09:32:00 2022-07-08 09:32:00 Outpatient Eileen Hairston [facility] [id number] [facility] 2022-03-27 09:56:00 2022-03-27 09:56:00 Outpatient Eileen Hairston [facility] [id number] [facility] 2021-09-19 19:11:00 2021-09-19 19:55:00 [facility] [id number] [facility] 2021-09-04 21:06:00 2021-09-04 22:40:00 Inpatient EM Acosta [facility] [id number] [facility] 2014-02-20 13:20:57 2014-02-22 16:11:47 [facility] [id number] 2014-01-30 14:02:18 2014-02-07 15:22:07 [facility] [id number] 2013-06-09 13:26:30 2013-06-09 13:39:38 Phone Encounter [facility] [id number] 2013-04-25 10:36:54 2013-05-02 13:30:36 [facility] [id number] 2013-04-27 15:34:44 2013-04-27 15:48:36 [facility] [id number] 2013-04-18 17:19:14 2013-04-18 18:00:32 [facility] [id number] 2004-09-09 09:15:20 2004-09-09 11:13:36 [facility] [id number] 2004-01-29 16:16:35 2004-01-29 16:40:21 [facility] [id number] 2004-01-26 11:28:09 2004-01-26 11:51:16 [facility] [id number] 2002-08-04 14:45:40 2002-08-09 12:18:35 [facility] [id number] Results Test Description Test Time Test Comments Results Result Co mments Source BASIC METABOLIC [id number] 22:52:00* Test Item Value Reference Range Interpretation [...] HEMINDEX) 18 Index/DL 0-100 N LIVER FUNCTION [id number] 22:52:00* Test Item Value Reference Range Interpretation [...] ALKP) 82 U/L 38-126 N HCG SERUM [id number] 22:52:00* Test Item Value Reference Range Interpretation Comme nts HCG SERUM QUAL (test code = HCGQL) NEGATIVE NEGATIVE [id number] 22:52:00* Test Item Value Reference Range Interpretation Comme nts ACETAMINOPHEN (test code = ACET) <10 ug/mL 10-30 L [id number] 22:52:00* Test Item Value Reference Range Interpretation Comme nts SALICYLATE (test code = CHARISSE) < 1.0 mg/dL Negative <2.0 mg/dLTherapeutic Range <20 mg/dL [id number] 22:52:00* Test Item Value Reference Range Interpretation Comme nts ALCOHOL (test code = ALC) < 10 mg/dL <10 ~~~~~~~~~~~~~~~~ ~~~~~~ ~~~~~~~~~~~~~~~~~~~~~~ ~~~~~~ RESULTS ARE TO BE USED FOR MEDICAL PURPOSES ONLY.FOR LEGAL PURPOSES THE SPECIMEN MUST BE COLLECTED BY A CHAINOF CUSTODY. LEGAL TESTING IS NOT PERFORMED BY THIS FACILITY. ~~~~~~~~~~~~~~~~~~~~~~ ~~~~~~~~~~~~~~~~~~~~~~ ~~~~~~ URINALYSIS [id number] 22:40:00* Test Item Value Reference Range Interpretation [...] interpret this result as normal/abnormal. CBC W/AUTO [id number] 21:49:00* Test Item Value Reference Range Interpretation [...] 0.06 x10 3/uL 0.0-0.1 N *Lonestar urine (70967)2022-09-01 00:00:00* Test Item Value Reference Range Interpretation Comme nts *Lonestar urine (t est code = *Lonestar urine ) Negative N *[facility] urine (32501)2022-09-01 00:00:00* Test Item Value Reference Range Interpretation Comme nts *Lonestar urine (t est code = *Lonestar urine ) Negative N *[facility] urine (45875)2022-09-01 00:00:00* Test Item Value Reference Range Interpretation Comme nts *Lonestar urine (t est code = *Lonestar urine ) Negative N HIV-1 AG W/HIV-1 & HIV-2 AB (98240)2022-07-31 00:00:00* Test Item Value Reference Range Interpretation Comme nts HIV AG/AB, 4TH GEN (test code = 82540-9) NON-REACTIVE N HIV-1 antigen an d HIV-1/HIV-2 [...] for this purpose.For additional information please refer tohttp://education.[employer]/faq/THJ705(This link is being provided for informational/educational purposes only.)The performance of this assay has not been clinicallyvalidated in patients less than 2 years old.Test Performed at:[facility] [address] [address] FIDEL BRIGGS MD HEPATITIS C ANTIBODY (00144)2022-07-31 00:00:00* Test Item Value Reference Range Interpretation Comme nts HEPATITIS C ANTIBODY (test code = 45761-1) NON-REACTIVE N INDEX (test code = 62216-5) 0.18 N HCV antibody was non-reactive. There is no laboratoryevidence of HCV infection.In most cases, no further action is required. However,if recent HCV exposure is suspected, a test for HCV RNA(test code 28520) is suggested.For additional information please refer tohttp://weipass.Mobui/faq/FAQ22v 1(This link is being provided for informational/educational purposes only.)Test Performed at:[facility] [address] [address] FIDEL BRIGGS MD HIV-1 AG W/HIV-1 & HIV-2 AB (92343)2022-07-31 00:00:00* Test Item Value Reference Range Interpretation Comme nts HIV AG/AB, 4TH GEN (test code = 53835-3) NON-REACTIVE N HIV-1 antigen an d HIV-1/HIV-2 [...] for this purpose.For additional information please refer tohttp://education.Istpika/faq/JIG170(This link is being provided for informational/educational purposes only.)The performance of this assay has not been clinicallyvalidated in patients less than 2 years old.Test Performed at:[facility] [address] [address] FIDEL BRIGGS MD HEPATITIS C ANTIBODY (39793)2022-07-31 00:00:00* Test Item Value Reference Range Interpretation Comme nts HEPATITIS C ANTIBODY (test code = 53467-0) NON-REACTIVE N INDEX (test code = 81450-4) 0.18 N HCV antibody was non-reactive. There is no laboratoryevidence of HCV infection.In most cases, no further action is required. However,if recent HCV exposure is suspected, a test for HCV RNA(test code 83900) is suggested.For additional information please refer tohttp://education.Mobui/faq/FAQ22v 1(This link is being provided for informational/educational purposes only.)Test Performed at:[facility] [address] [address] FIDEL BRIGGS MD HIV-1 AG W/HIV-1 & HIV-2 AB (50685)2022-07-31 00:00:00* Test Item Value Reference Range Interpretation Comme nts HIV AG/AB, 4TH GEN (test code = 55186-2) NON-REACTIVE N HIV-1 antigen an d HIV-1/HIV-2 [...] for this purpose.For additional information please refer tohttp://education.Istpika/faq/BTC351(This link is being provided for informational/educational purposes only.)The performance of this assay has not been clinicallyvalidated in patients less than 2 years old.Test Performed at:[facility] [address] [address] FIDEL BRIGGS MD HEPATITIS C ANTIBODY (64394)2022-07-31 00:00:00* Test Item Value Reference Range Interpretation Comme nts HEPATITIS C ANTIBODY (test code = 99422-8) NON-REACTIVE N INDEX (test code = 19870-4) 0.18 N HCV antibody was non-reactive. There is no laboratoryevidence of HCV infection.In most cases, no further action is required. However,if recent HCV exposure is suspected, a test for HCV RNA(test code 96231) is suggested.For additional information please refer tohttp://education.Mobui/faq/FAQ22v 1(This link is being provided for informational/educational purposes only.)Test Performed at:[facility] [address] [address] FIDEL BRIGGS MD HIV-1 AG W/HIV-1 & HIV-2 AB (57659)2022-07-31 00:00:00* Test Item Value Reference Range Interpretation Comme nts HIV AG/AB, 4TH GEN (test code = 93277-6) NON-REACTIVE N HIV-1 antigen an d HIV-1/HIV-2 [...] for this purpose.For additional information please refer tohttp://weipass.Istpika/faq/JJQ626(This link is being provided for informational/educational purposes only.)The performance of this assay has not been clinicallyvalidated in patients less than 2 years old.Test Performed at:[facility] [id number] [place] [address] FIDEL BRIGGS MD HEPATITIS C ANTIBODY (83539)2022-07-31 00:00:00* Test Item Value Reference Range Interpretation Comme nts HEPATITIS C ANTIBODY (test code = 04690-5) NON-REACTIVE N INDEX (test code = 98958-6) 0.18 N HCV antibody was non-reactive. There is no laboratoryevidence of HCV infection.In most cases, no further action is required. However,if recent HCV exposure is suspected, a test for HCV RNA(test code 23747) is suggested.For additional information please refer tohttp://CyberSponse/faq/FAQ22v 1(This link is being provided for informational/educational purposes only.)Test Performed at:[facility] [address] [address] FIDEL BRIGGS MD HIV-1 AG W/HIV-1 & HIV-2 AB (27058)2022-07-31 00:00:00* Test Item Value Reference Range Interpretation Comme nts HIV AG/AB, 4TH GEN (test code = 71470-1) NON-REACTIVE N HIV-1 antigen an d HIV-1/HIV-2 [...] for this purpose.For additional information please refer tohttp://Snappy shuttle.[employer]/faq/JST066(This link is being provided for informational/educational purposes only.)The performance of this assay has not been clinicallyvalidated in patients less than 2 years old.Test Performed at:[facility] [address] [address] FIDEL BRIGGS MD HEPATITIS C ANTIBODY (48475)2022-07-31 00:00:00* Test Item Value Reference Range Interpretation Comme nts HEPATITIS C ANTIBODY (test code = 55890-2) NON-REACTIVE N INDEX (test code = 62474-1) 0.18 N HCV antibody was non-reactive. There is no laboratoryevidence of HCV infection.In most cases, no further action is required. However,if recent HCV exposure is suspected, a test for HCV RNA(test code 59667) is suggested.For additional information please refer tohttp://CyberSponse/faq/FAQ22v 1(This link is being provided for informational/educational purposes only.)Test Performed at:[facility] [id number] [place] [address] FIDEL BRIGGS MD HIV-1 AG W/HIV-1 & HIV-2 AB (91974)2022-07-31 00:00:00* Test Item Value Reference Range Interpretation Comme nts HIV AG/AB, 4TH GEN (test code = 49607-9) NON-REACTIVE N HIV-1 antigen an d HIV-1/HIV-2 [...] for this purpose.For additional information please refer tohttp://education.Istpika/faq/GRU904(This link is being provided for informational/educational purposes only.)The performance of this assay has not been clinicallyvalidated in patients less than 2 years old.Test Performed at:[facility] [address] [address] FIDEL BRIGGS MD HEPATITIS C ANTIBODY (63936)2022-07-31 00:00:00* Test Item Value Reference Range Interpretation Comme nts HEPATITIS C ANTIBODY (test code = 58106-5) NON-REACTIVE N INDEX (test code = 92646-3) 0.18 N HCV antibody was non-reactive. There is no laboratoryevidence of HCV infection.In most cases, no further action is required. However,if recent HCV exposure is suspected, a test for HCV RNA(test code 99021) is suggested.For additional information please refer tohttp://weipass.Mobui/faq/FAQ22v 1(This link is being provided for informational/educational purposes only.)Test Performed at:[facility] [id number] [place] [address] FIDEL BRIGGS MD HIV-1 AG W/HIV-1 & HIV-2 AB (48940)2022-07-31 00:00:00* Test Item Value Reference Range Interpretation Comme nts HIV AG/AB, 4TH GEN (test code = 81967-2) NON-REACTIVE N HIV-1 antigen an d HIV-1/HIV-2 [...] for this purpose.For additional information please refer tohttp://education.Istpika/faq/HJG137(This link is being provided for informational/educational purposes only.)The performance of this assay has not been clinicallyvalidated in patients less than 2 years old.Test Performed at:[facility] [id number] [place] [address] FIDEL BRIGGS MD HEPATITIS C ANTIBODY (94990)2022-07-31 00:00:00* Test Item Value Reference Range Interpretation Comme nts HEPATITIS C ANTIBODY (test code = 27545-7) NON-REACTIVE N INDEX (test code = 01575-8) 0.18 N HCV antibody was non-reactive. There is no laboratoryevidence of HCV infection.In most cases, no further action is required. However,if recent HCV exposure is suspected, a test for HCV RNA(test code 28367) is suggested.For additional information please refer tohttp://education.Mobui/faq/FAQ22v 1(This link is being provided for informational/educational purposes only.)Test Performed at:[facility] [id number] [place] [address] FIDEL BRIGGS MD Chlamydia/GC Amplification(APTIMA SWAB) (98697)2022-07-30 00:00:00* Test Item Value Reference Range Interpretation Comme nts CHLAMYDIA TRACHOMATIS RNA, TMA, UROGENITAL (test code = 48892-9) NOT DETECTED N NEISSERIA GONORRHOEAE RNA, TMA, UROGENITAL (test code = 64829-2) NOT DETECTED N 45663376 (test code = 07170273) SEE NOTE N The analytical performance characteristics of thisassay, when used to test SurePath(TM) specimens have beendetermined by [address] Davis. The modifications havenot been cleared or approved by the FDA. This assay hasbeen validated pursuant to the CLIA regulations and isused for clinical purposes.For additional information, please refer tohttps://Graymatics/faq /RJJ534(This link is being provided for information/educationa l purposes only.)Test Performed at:[facility] [address] [address] FIDEL BRIGGS MD Chlamydia/GC Amplification(APTIMA SWAB) (48872)2022-07-30 00:00:00* Test Item Value Reference Range Interpretation Comme nts CHLAMYDIA TRACHOMATIS RNA, TMA, UROGENITAL (test code = 29646-0) NOT DETECTED N NEISSERIA GONORRHOEAE RNA, TMA, UROGENITAL (test code = 55207-9) NOT DETECTED N 43128554 (test code = 72356983) SEE NOTE N The analytical performance characteristics of thisassay, when used to test SurePath(TM) specimens have beendetermined by [address] Davis. The modifications havenot been cleared or approved by the FDA. This assay hasbeen validated pursuant to the CLIA regulations and isused for clinical purposes.For additional information, please refer tohttps://Graymatics/faq /PAI967(This link is being provided for information/educationa l purposes only.)Test Performed at:[facility] [id number] [place] [address] FIDEL BRIGGS MD PAP with reflex HPV (81018)2022-07-30 00:00:00* Test Item Value Reference Range Interpretation Comme nts CLINICAL INFORMATION: (test code = 37295-1) SEE NOTE N None given LMP: (test code = 8665-2) SEE NOTE N [id number] PREV. PAP: (test code = 21914-6) SEE NOTE N NONE GIVEN PREV. BX: (test code = 51244-2) SEE NOTE N NGC SOURCE: (test code = 27791-2) SEE NOTE N CERVIX STATEMENT OF ADEQUACY: (test code = 30629-1) SEE NOTE N Satisfactory for evaluation.Endocervical/tr ansformation zone componentpresent. INTERPRETATION/RESU LT: (test code = 51476-4) SEE NOTE N Negative for intraepithelial lesion or malignancy. COMMENT: (test code = 06058-4) SEE NOTE N This Pap test berg s been evaluated with computerassisted technology. FLOWER PLANTER: (test code = 27675-8) SEE NOTE N MPG, CT(ASCP) 76253846 (test code = 35536135) SEE NOTE N EXPLANATORY NOTE :The Pap is a screening test for cervical cancer. It isnot a diagnostic test and is subject to false negativeand false positive results. It is most reliable when asatisfactory sample, regularly obtained, is submittedwith relevant clinical findings and history, and whenthe Pap result is evaluated along with historic andcurrent clinical information.Test Performed at:[id number] [place] [address] FIDEL BRIGGS MD Chlamydia/GC Amplification(APTIMA SWAB) (34675)2022-07-30 00:00:00* Test Item Value Reference Range Interpretation Comme nts CHLAMYDIA TRACHOMATIS RNA, TMA, UROGENITAL (test code = 90371-5) NOT DETECTED N NEISSERIA GONORRHOEAE RNA, TMA, UROGENITAL (test code = 93083-3) NOT DETECTED N 77269564 (test code = 64714205) SEE NOTE N The analytical performance characteristics of thisassay, when used to test SurePath(TM) specimens have beendetermined by [address] Davis. The modifications havenot been cleared or approved by the FDA. This assay hasbeen validated pursuant to the CLIA regulations and isused for clinical purposes.For additional information, please refer tohttps://education.Dynamo Media/faq /NKP997(This link is being provided for information/educationa l purposes only.)Test Performed at:[facility] [id number] [place] [address] FIDEL BRIGGS MD PAP with reflex HPV (52326)2022-07-30 00:00:00* Test Item Value Reference Range Interpretation Comme nts CLINICAL INFORMATION: (test code = 97188-4) SEE NOTE N None given LMP: (test code = 8665-2) SEE NOTE N [id number] PREV. PAP: (test code = 15119-8) SEE NOTE N NONE GIVEN PREV. BX: (test code = 34741-2) SEE NOTE N NGC SOURCE: (test code = 58363-4) SEE NOTE N CERVIX STATEMENT OF ADEQUACY: (test code = 58994-8) SEE NOTE N Satisfactory for evaluation.Endocervical/tr ansformation zone componentpresent. INTERPRETATION/RESU LT: (test code = 86865-4) SEE NOTE N Negative for intraepithelial lesion or malignancy. COMMENT: (test code = ) SEE NOTE N This Pap test berg s been evaluated with computerassisted technology. FLOWER PLANTER: (test code = 26784-3) SEE NOTE N MPG, CT(ASCP) 03163487 (test code = 34554352) SEE NOTE N EXPLANATORY NOTE :The Pap is a screening test for cervical cancer. It isnot a diagnostic test and is subject to false negativeand false positive results. It is most reliable when asatisfactory sample, regularly obtained, is submittedwith relevant clinical findings and history, and whenthe Pap result is evaluated along with historic andcurrent clinical information.Test Performed at:[facility]-[id number] [facility] [address] FIDEL BRIGGS MD Chlamydia/GC Amplification(APTIMA SWAB) (12971)2022-07-30 00:00:00* Test Item Value Reference Range Interpretation Comme nts CHLAMYDIA TRACHOMATIS RNA, TMA, UROGENITAL (test code = 30930-4) NOT DETECTED N NEISSERIA GONORRHOEAE RNA, TMA, UROGENITAL (test code = 96931-7) NOT DETECTED N [id number] (test code = 98715244) SEE NOTE N The analytical performance characteristics of thisassay, when used to test SurePath(TM) specimens have beendetermined by [address] Davis. The modifications havenot been cleared or approved by the FDA. This assay hasbeen validated pursuant to the CLIA regulations and isused for clinical purposes.For additional information, please refer totps://education.Client24.[employer]/faq /FSW367(This link is being provided for information/educationa l purposes only.)Test Performed at:[facility] [id number] [place] [address] FIDEL BRIGGS MD PAP with reflex HPV (10224)2022-07-30 00:00:00* Test Item Value Reference Range Interpretation Comme nts CLINICAL INFORMATION: (test code = 79437-6) SEE NOTE N None given LMP: (test code = 8665-2) SEE NOTE N [id number] PREV. PAP: (test code = 46409-4) SEE NOTE N NONE GIVEN PREV. BX: (test code = 60976-0) SEE NOTE N [facility] SOURCE: (test code = 67236-3) SEE NOTE N CERVIX STATEMENT OF ADEQUACY: (test code = 82427-1) SEE NOTE N Satisfactory for evaluation.Endocervical/tr ansformation zone componentpresent. INTERPRETATION/RESU LT: (test code = 34328-3) SEE NOTE N Negative for intraepithelial lesion or malignancy. COMMENT: (test code = ) SEE NOTE N This Pap test berg s been evaluated with computerassisted technology. FLOWER PLANTER: (test code = 05341-5) SEE NOTE N [facility], CT(ASCP) 18283681 (test code = 36468264) SEE NOTE N EXPLANATORY NOTE :The Pap is a screening test for cervical cancer. It isnot a diagnostic test and is subject to false negativeand false positive results. It is most reliable when asatisfactory sample, regularly obtained, is submittedwith relevant clinical findings and history, and whenthe Pap result is evaluated along with historic andcurrent clinical information.Test Performed at:[facility]-IRHPQV7[address] [place] [address] FIDEL BRIGGS MD Chlamydia/GC Amplification(APTIMA SWAB) (31217)2022-07-30 00:00:00* Test Item Value Reference Range Interpretation Comme nts CHLAMYDIA TRACHOMATIS RNA, TMA, UROGENITAL (test code = 15736-0) NOT DETECTED N NEISSERIA GONORRHOEAE RNA, TMA, UROGENITAL (test code = 93608-1) NOT DETECTED N 28062249 (test code = 73407100) SEE NOTE N The analytical performance characteristics of thisassay, when used to test SurePath(TM) specimens have beendetermined by 777 Davis. The modifications havenot been cleared or approved by the FDA. This assay hasbeen validated pursuant to the CLIA regulations and isused for clinical purposes.For additional information, please refer totps://education.[employer]/faq /VHI130(This link is being provided for information/educationa l purposes only.)Test Performed at:[facility] [id number] [place] [address] FIDEL BRIGGS MD PAP with reflex HPV (29133)2022-07-30 00:00:00* Test Item Value Reference Range Interpretation Comme nts CLINICAL INFORMATION: (test code = 48069-4) SEE NOTE N None given LMP: (test code = 8665-2) SEE NOTE N [id number] PREV. PAP: (test code = 52387-6) SEE NOTE N NONE GIVEN PREV. BX: (test code = 21639-3) SEE NOTE N [facility] SOURCE: (test code = 52891-4) SEE NOTE N CERVIX STATEMENT OF ADEQUACY: (test code = 49124-4) SEE NOTE N Satisfactory for evaluation.Endocervical/tr ansformation zone componentpresent. INTERPRETATION/RESU LT: (test code = 05429-0) SEE NOTE N Negative for intraepithelial lesion or malignancy. COMMENT: (test code = 63671-3) SEE NOTE N This Pap test berg s been evaluated with computerassisted technology. FLOWER PLANTER: (test code = 46965-7) SEE NOTE N [facility], CT(ASCP) 43018438 (test code = 86962922) SEE NOTE N EXPLANATORY NOTE :The Pap is a screening test for cervical cancer. It isnot a diagnostic test and is subject to false negativeand false positive results. It is most reliable when asatisfactory sample, regularly obtained, is submittedwith relevant clinical findings and history, and whenthe Pap result is evaluated along with historic andcurrent clinical information.Test Performed at:[facility]-BTYTSW32[address] [place] [address] FIDEL BRIGGS MD Chlamydia/GC Amplification(APTIMA SWAB) (58201)2022-07-30 00:00:00* Test Item Value Reference Range Interpretation Comme nts CHLAMYDIA TRACHOMATIS RNA, TMA, UROGENITAL (test code = 72518-6) NOT DETECTED N NEISSERIA GONORRHOEAE RNA, TMA, UROGENITAL (test code = 45187-3) NOT DETECTED N 90567112 (test code = 82780921) SEE NOTE N The analytical performance characteristics of thisassay, when used to test SurePath(TM) specimens have beendetermined by [address] Davis. The modifications havenot been cleared or approved by the FDA. This assay hasbeen validated pursuant to the CLIA regulations and isused for clinical purposes.For additional information, please refer tohttps://education.[employer]/faq /AJX540(This link is being provided for information/educationa l purposes only.)Test Performed at:[facility] [id number] [place] [address] FIDEL BRIGGS MD PAP with reflex HPV (28204)2022-07-30 00:00:00* Test Item Value Reference Range Interpretation Comme nts CLINICAL INFORMATION: (test code = 74989-7) SEE NOTE N None given LMP: (test code = 8665-2) SEE NOTE N [id number] PREV. PAP: (test code = 50845-5) SEE NOTE N NONE GIVEN PREV. BX: (test code = 03401-2) SEE NOTE N [facility] SOURCE: (test code = 72661-5) SEE NOTE N CERVIX STATEMENT OF ADEQUACY: (test code = 44507-1) SEE NOTE N Satisfactory for evaluation.Endocervical/tr ansformation zone componentpresent. INTERPRETATION/RESU LT: (test code = 78691-4) SEE NOTE N Negative for intraepithelial lesion or malignancy. COMMENT: (test code = 68218-1) SEE NOTE N This Pap test berg s been evaluated with computerassisted technology. FLOWER PLANTER: (test code = 23136-8) SEE NOTE N [facility], CT(ASCP) 92205837 (test code = 53504103) SEE NOTE N EXPLANATORY NOTE :The Pap is a screening test for cervical cancer. It isnot a diagnostic test and is subject to false negativeand false positive results. It is most reliable when asatisfactory sample, regularly obtained, is submittedwith relevant clinical findings and history, and whenthe Pap result is evaluated along with historic andcurrent clinical information.Test Performed at:[facility]-FXRHUB[address] [place] [address] FIDEL BRIGGS MD Chlamydia/GC Amplification(APTIMA SWAB) (39749)2022-07-30 00:00:00* Test Item Value Reference Range Interpretation Comme nts CHLAMYDIA TRACHOMATIS RNA, TMA, UROGENITAL (test code = 43511-6) NOT DETECTED N NEISSERIA GONORRHOEAE RNA, TMA, UROGENITAL (test code = 74234-0) NOT DETECTED N 78291131 (test code = 71238650) SEE NOTE N The analytical performance characteristics of thisassay, when used to test SurePath(TM) specimens have beendetermined by 777 Davis. The modifications havenot been cleared or approved by the FDA. This assay hasbeen validated pursuant to the CLIA regulations and isused for clinical purposes.For additional information, please refer tohttps://education.[employer]/faq /OYX290(This link is being provided for information/educationa l purposes only.)Test Performed at:[facility] [id number] [place] [address] FIDEL BRIGGS MD PAP with reflex HPV (92162)2022-07-30 00:00:00* Test Item Value Reference Range Interpretation Comme nts CLINICAL INFORMATION: (test code = 07045-1) SEE NOTE N None given LMP: (test code = 8665-2) SEE NOTE N 16343437 PREV. PAP: (test code = 04596-8) SEE NOTE N NONE GIVEN PREV. BX: (test code = 28813-5) SEE NOTE N [facility] SOURCE: (test code = 46315-5) SEE NOTE N CERVIX STATEMENT OF ADEQUACY: (test code = 83335-6) SEE NOTE N Satisfactory for evaluation.Endocervical/tr ansformation zone componentpresent. INTERPRETATION/RESU LT: (test code = 45047-2) SEE NOTE N Negative for intraepithelial lesion or malignancy. COMMENT: (test code = 42441-9) SEE NOTE N This Pap test berg s been evaluated with computerassisted technology. FLOWER PLANTER: (test code = 88423-0) SEE NOTE N [facility], CT(ASCP) 14341455 (test code = 12022732) SEE NOTE N EXPLANATORY NOTE :The Pap is a screening test for cervical cancer. It isnot a diagnostic test and is subject to false negativeand false positive results. It is most reliable when asatisfactory sample, regularly obtained, is submittedwith relevant clinical findings and history, and whenthe Pap result is evaluated along with historic andcurrent clinical information.Test Performed at:[facility]-ZLJSCH4[address] [place] [address] FIDEL BRIGGS MD Chlamydia/GC Amplification(APTIMA SWAB) (61933)2022-07-30 00:00:00* Test Item Value Reference Range Interpretation Comme nts CHLAMYDIA TRACHOMATIS RNA, TMA, UROGENITAL (test code = 42381-5) NOT DETECTED N NEISSERIA GONORRHOEAE RNA, TMA, UROGENITAL (test code = 47822-0) NOT DETECTED N 40978157 (test code = 37325886) SEE NOTE N The analytical performance characteristics of thisassay, when used to test SurePath(TM) specimens have beendetermined by [address] Davis. The modifications havenot been cleared or approved by the FDA. This assay hasbeen validated pursuant to the CLIA regulations and isused for clinical purposes.For additional information, please refer tohttps://education.Client24.[employer]/faq /FQT951(This link is being provided for information/educationa l purposes only.)Test Performed at:[facility] [id number] [place] [address] FIDEL BRIGGS MD PAP with reflex HPV (60455)2022-07-30 00:00:00* Test Item Value Reference Range Interpretation Comme nts CLINICAL INFORMATION: (test code = 24084-6) SEE NOTE N None given LMP: (test code = 8665-2) SEE NOTE N [id number] PREV. PAP: (test code = 35437-9) SEE NOTE N NONE GIVEN PREV. BX: (test code = 86613-6) SEE NOTE N [facility] SOURCE: (test code = 33493-0) SEE NOTE N CERVIX STATEMENT OF ADEQUACY: (test code = 62878-1) SEE NOTE N Satisfactory for evaluation.Endocervical/tr ansformation zone componentpresent. INTERPRETATION/RESU LT: (test code = 12938-9) SEE NOTE N Negative for intraepithelial lesion or malignancy. COMMENT: (test code = ) SEE NOTE N This Pap test berg s been evaluated with computerassisted technology. FLOWER PLANTER: (test code = 40947-4) SEE NOTE N [facility], CT(ASCP) 87596914 (test code = 11683113) SEE NOTE N EXPLANATORY NOTE :The Pap is a screening test for cervical cancer. It isnot a diagnostic test and is subject to false negativeand false positive results. It is most reliable when asatisfactory sample, regularly obtained, is submittedwith relevant clinical findings and history, and whenthe Pap result is evaluated along with historic andcurrent clinical information.Test Performed at:[facility]QPDEWP[address] [facility] [place] [address] FIDEL BRIGGS MD UA RFLX MICR CULT IF [id number] 22:32:00* Test Item Value Reference Range Interpretation [...] CLEAN CATCH- XR FOOT 3 + V [id number] 20:13:00FAX: Pita Cook [phone] [place]: St: REG Name: TRISHA CUADRA [facility] : 1995 Age/S: 24/F [address] Unit #: [id number] Loc: [place] [address] Phys: JoeyPita DO Acct: [id number] Dis Date: Status: REG ER PHONE #: Exam Date: 03/10/20201919 FAX #: Reason: right foot injury, eval for foreign body, r/o f EXAMS: CPT CODE: [id number] XR FOOT 3 +V RT 25857 - XR FOOT 3 + V RT, 03/10/2020 6:37 PM Reason For Examination: right foot injury, eval for foreign body, r/o fx Comparison: None available Location: R16: Findings: No evidence of acute fracture or dislocation. There is a punctate density seen within the soft tissues at the tip of the 2nddigit possibly reflective of foreign body, otherwise no definite plain film evidence of radiopaque foreign body is visualized Impression: No evidence of acute fracture or dislocation. There is a punctate density seen within the soft tissues at the tip of the 2nd digit possibly reflective of foreignbody, otherwise no definite plain film evidence of radiopaque foreign body is visualized at 2013 Reported and signed by: Poly Duff MD CC: Pita Cook DO Technologist: ROBERTO VILLATORO Date/Time/By: 03/10/2020 (2012) : By: [email or web address] PAGE 1 Signed Report FAX: Pita Cook D [phone] [place]: St: REG -- Name: TRISHA [facility]RA [facility] : 1995 Age/S: 24/F [address] Unit #: [id number] Loc: [place] [address] Phys: Pita Cook DO Acct: [id number] Dis Date: Status: REG ER PHONE #: Exam Date: 03/10/20201919 FAX #: Reason: right foot injury, eval for foreign body, r/o f EXAMS: CPT CODE: [id number] XR FOOT 3 + V RT 89967 <Continued> Orig Print D/T: S: 03/10/2020 (2017) PAGE 2 Signed ReportBASIC METABOLIC [id number] 19:29:00* Test Item Value Reference Range Interpretation [...] CA) 9.8 mg/dL 8.4-10.2 N C REACTIVE [id number] 19:29:00* Test Item Value Reference Range Interpretation Comme nts C REACTIVE PROTEIN (test cod e = CRP) 22.2 mg/L 0-9 H BASIC METABOLIC [id number] 19:28:00* Test Item Value Reference Range Interpretation [...] CA) 9.8 mg/dL 8.4-10.2 N C REACTIVE [id number] 19:28:00* Test Item Value Reference Range Interpretation Comme nts C REACTIVE PROTEIN (test code = CRP) mg/L 0-9 CBC W/AUTO [id number] 19:14:00* Test Item Value Reference Range Interpretation [...] 0.09 x10 3/uL 0.0-0.1 N - US [employer] [facility] [id number] 17:39:00FAX: Adrianna Crawford [phone] [place]: St: REG FAX: [place] [phone] Name: TRISHA CUADRA [facility] : 1995 Age/S: 24/F [address] Unit #: [id number] Loc: [place] [address] Phys: Adrianna Kurtz HOSPITALITY HOST Acct: [id number] Dis Date: Status: REG ER PHONE #: [phone] Exam Date: 11/05/2019 1725 FAX #: [phone] Reason: R/O ABSCESS OF BREAST EXAMS: CPT CODE: [id number] [employer] [place] [address] Location: B2 EXAM: RIGHT BREAST ULTRASOUND, LIMITEDHISTORY: Breast abscess COMPARISON: None TECHNIQUE: Targeted sonogram of the right breast is obtained. FINDINGS: In the retroareolar region, there is an irregular hypoechoic fluid collection compatibl e with acute breast abscess measuring 4.6 x [...] F3 at 1739 Reported and signed by: Agnelica Burr MD PAGE 1 Signed Report (CONTINUED) FAX: Adrianna Crawford [phone] [place]: [facility]: REG FAX: [place] [phone] Name: TRISHA CUADRA [facility] : 1995 Age/S: 24/F [address] Unit #: [id number] Loc: [place] [address] Phys: Adrianna Kurtz NP Acct: [id number] Dis Date: Status: REG ER PHONE #: [phone] Exam Date: 11/05/2019 1725 FAX #: [phone] Reason: R/O ABSCESS OF BREAST EXA MS: CPT CODE: [id number] [place] [address] <Continued> CC: Adrianna Kurtz HOSPITALITY HOST; [place] Olmos MD Technologist: Mahin Gonzalez [facility] Trnscrd Date/Time/By: 11/05/2019 (1739) : By: [email or web address] PAGE 2 Signed Report FAX: Adrianna Crawford [phone] [place]: St: REG FAX: [place] [phone] Name: TRISHA CUADRA : 1995 Age/S: 24/F [address] Unit #: [id number] Loc: [place] [address] Phys: Adrianna Kurtz NP Acct: [id number] Dis Date: Status: REG ER PHONE #: [phone] Exam Date: 11/05/2019 2745 FAX #: [phone] Reason: R/O ABSCESS OF BREAST EXAMS: CPT CODE: [id number] [place] [address] <Continued> Orig Print D/T: S: 11/05/2019 (4134) PAGE 3 Signed ReportURINALYSIS [id number] 17:36:00* Test Item Value Reference Range Interpretation [...] (MANY) /HPF 0-5 (RARE) A COMPREHENSIVE METABOLIC [id number] 17:07:00* Test Item Value Reference Range Interpretation [...] = ALKP) 112 U/L 38-126 N HCG [id number] 16:54:00* Test Item Value Reference Range Interpretation Comme [facility] HCG POC (test code = HCGPOC) <5.0 IU/L 0-4.9 N Results of 5.0-25.0 IU/L are indeterminate and do not ruleout . Because HCG values double approximately every48 hours in a normal , patients with low levels ofHCG should be resampled and retested after 48 hours toconfirm . LACTIC ACID [id number] 16:54:00* Test Item Value Reference Range Interpretation Comme [facility] LACTIC ACID POC (test code = LACTP) 1.39 mmol/L 0.7-2.0 N CBC W/AUTO [id number] 16:53:00* Test Item Value Reference Range Interpretation [...] 0.12 x10 3/uL 0.0-0.1 H AB RUBELLA [id number] 07:13:00* Test Item Value Reference Range Interpretation Comme nts AB RUBELLA IGM (test code = RUBMAB) <20.0 AU/mL 0.0-19.9 Negative <20.0 Equivocal 20.0 - 24.9 Positive >24.9Performed At: [facility] [id number] Sanjai MD Ph:[phone] Has the HIV testing consent form been signed? YESAB RUBELLA [id number] 07:13:00* Test Item Value Reference Range Interpretation Comme nts AB RUBELLA IGG (test code = RUBGAB) 0.97 index Immune >0.99 A A second sample should be collected and tested no less than2-4 weeks. Non-immune <0.90 Equivocal 0.90 - 0.99 Immune >0.99Performed At: [facility] [id number] Oakley MD Ph:[phone] Has the HIV testing consent form been signed? YESAB HIV 1 07:13:00* Test Item Value Reference Range Interpretation Comme nts AB HIV 1 2 (test code = BXB37CY) NonReactive SREEN NR This is a screening [...] testing consent form been signed? YESAB RUBELLA [id number] 13:10:00* Test Item Value Reference Range Interpretation Comme nts AB RUBELLA IGM (test code = RUBMAB) Has the HIV testing consent form been signed? YESAB RUBELLA [id number] 13:10:00* Test Item Value Reference Range Interpretation Comme nts AB RUBELLA IGG (test code = RUBGAB) 0.97 index Immune >0.99 A A second sample should be collected and tested no less than2-4 weeks. Non-immune <0.90 Equivocal 0.90 - 0.99 Immune >0.99Performed At: [facility] [id number] Oakley MD Ph:[phone] Has the HIV testing consent form been signed? YESAB HIV 1 13:10:00* Test Item Value Reference Range Interpretation Comme nts AB HIV 1 2 (test code = AUS35KS) NonReactive SREEN NR This is a screening [...] testing consent form been signed? YESAB RUBELLA [id number] 12:44:00* Test Item Value Reference Range Interpretation Comme nts AB RUBELLA IGM (test code = RUBMAB) Has the HIV testing consent form been signed? YESAB RUBELLA [id number] 12:44:00* Test Item Value Reference Range Interpretation Comme nts AB RUBELLA IGG (test code = RUBGAB) Has the HIV testing consent form been signed? YESAB HIV 1 12:44:00* Test Item Value Reference Range Interpretation Comme nts AB HIV 1 2 (test code = CFN66VR) NonReactive SREEN NR This is a screening [...] code = HBSAG) NEG-NONREAC SCREEN Nonreactive AB [id number] 12:44:00* Test Item Value Reference Range Interpretation Comme nts AB TREPONEMA (test code = TREPAB) NonReactive Screen NonReactive URINALYSIS [id number] 12:04:00* Test Item Value Reference Range Interpretation [...] RARE /LPF NONE DRUGS OF ABUSE SCREEN [id number] 12:04:00* Test Item Value Reference Range Interpretation [...] particularly when preliminary positiveresults are used. URINALYSIS [id number] 11:44:00* Test Item Value Reference Range Interpretation [...] RARE /LPF NONE DRUGS OF ABUSE SCREEN [id number] 11:44:00* Test Item Value Reference Range Interpretation [...] = PHENCURN) SCcutoff <25 NG/ML CBC W/AUTO [id number] 11:38:00* Test Item Value Reference Range Interpretation [...] = NRBC#) 0.00 K/mm3 0.0-0.05 N URINALYSIS [id number] 11:33:00* Test Item Value Reference Range Interpretation [...] RBCU) #RBC/HPF 0-3 DRUGS OF ABUSE SCREEN [id number] 11:33:00* Test Item Value Reference Range Interpretation [...] SCcutoff <25 NG/ML - US PREG AFTER [id number] 10:47:00Patient Name: TRISHA CUADRA Unit No: [id number] EXAMS: CPT CODE: [id number] US PREG AFTER TRI 87149 Examination: Obstetrical ultrasound Clinical indication: IUP AT [...] and signed by: Marnie Suarez MD CC: Dalotn Olmos MD Technologist: Aye Kolb RDMS Trnscrbd D/T: (1047) [email or web address] Probe: Orig Print D/T: S: 09/27/2019 (1050) Probe: HCAJacqueline Arellano NAME: TRISHA CU[facility]RA [facility] PHYS: [place] Sykes [address] [place] [address] BLVD : 1995 AGE: 24 SEX: Robert ARELL[place], [place] [address] LOC: B.[facility] PHONE #: [phone] EXAM DATE: 09/27/2019 STATUS: PRE ER FAX #: [phone] RAD NO: Page 1 Signed Report *[facility] (48405)2014-02-20 00:00:00* Test Item Value Reference Range Interpretation Comme nts STREPTOCOCCUS GRP A, INFCTS ANTIGN (test code = 6556-5) neg N *[facility] (83823)2014-02-20 00:00:00* Test Item Value Reference Range Interpretation Comme nts STREPTOCOCCUS GRP A, INFCTS ANTIGN (test code = 6556-5) neg N *[facility] (25524)2014-02-20 00:00:00* Test Item Value Reference Range Interpretation Comme nts STREPTOCOCCUS GRP A, INFCTS ANTIGN (test code = 6556-5) neg N *[facility] (51489)2014-02-20 00:00:00* Test Item Value Reference Range Interpretation Comme nts STREPTOCOCCUS GRP A, INFCTS ANTIGN (test code = 6556-5) neg N *[facility] (33682)2014-02-20 00:00:00* Test Item Value Reference Range Interpretation Comme nts STREPTOCOCCUS GRP A, INFCTS ANTIGN (test code = 6556-5) neg N *[facility] (80977)2014-02-20 00:00:00* Test Item Value Reference Range Interpretation Comme nts STREPTOCOCCUS GRP A, INFCTS ANTIGN (test code = 6556-5) neg N *[facility] (07502)2014-02-20 00:00:00* Test Item Value Reference Range Interpretation Comme nts STREPTOCOCCUS GRP A, INFCTS ANTIGN (test code = 6556-5) neg N *[facility] (57472)2014-02-20 00:00:00* Test Item Value Reference Range Interpretation Comme nts STREPTOCOCCUS GRP A, INFCTS ANTIGN (test code = 6556-5) neg N *[facility] (26798)2014-02-20 00:00:00* Test Item Value Reference Range Interpretation Comme nts STREPTOCOCCUS GRP A, INFCTS ANTIGN (test code = 6556-5) neg N *[facility] (35579)2014-02-20 00:00:00* Test Item Value Reference Range Interpretation Comme nts STREPTOCOCCUS GRP A, INFCTS ANTIGN (test code = 6556-5) neg N *[facility] (63463)2014-02-20 00:00:00* Test Item Value Reference Range Interpretation Comme nts STREPTOCOCCUS GRP A, INFCTS ANTIGN (test code = 6556-5) neg N *[facility] (74163)2014-01-30 00:00:00* Test Item Value Reference Range Interpretation Comme nts *[facility] urine (t est code = *[facility] urine ) Negative N *[facility] (51483)2014-01-30 00:00:00* Test Item Value Reference Range Interpretation Comme nts *[facility] urine (t est code = *[facility] urine ) Negative N *[facility] (63248)2014-01-30 00:00:00* Test Item Value Reference Range Interpretation Comme nts *[facility] urine (t est code = *[facility] urine ) Negative N *[facility] (24797)2014-01-30 00:00:00* Test Item Value Reference Range Interpretation Comme nts *[facility] urine (t est code = *[facility] urine ) Negative N *[facility] (66484)2014-01-30 00:00:00* Test Item Value Reference Range Interpretation Comme nts *[facility] urine (t est code = *[facility] urine ) Negative N *[facility] (69442)2014-01-30 00:00:00* Test Item Value Reference Range Interpretation Comme nts *[facility] urine (t est code = *[facility] urine ) Negative N *[facility] (68069)2014-01-30 00:00:00* Test Item Value Reference Range Interpretation Comme nts *[facility] urine (t est code = *[facility] urine ) Negative N *[facility] (72934)2014-01-30 00:00:00* Test Item Value Reference Range Interpretation Comme nts *[facility] urine (t est code = *[facility] urine ) Negative N *[facility] (31083)2014-01-30 00:00:00* Test Item Value Reference Range Interpretation Comme nts *[facility] urine (t est code = *[facility] urine ) Negative N *[facility] (51128)2014-01-30 00:00:00* Test Item Value Reference Range Interpretation Comme nts *[facility] urine (t est code = *[facility] urine ) Negative N *[facility] (57571)2014-01-30 00:00:00* Test Item Value Reference Range Interpretation Comme nts *[facility] urine (t est code = *[facility] urine ) Negative N *[facility] PPD SKIN TEST INTRADERMAL TB (17322)2013-04-25 00:00:00* Test Item Value Reference Range Interpretation Comme nts *[facility] PPD SKIN TEST INTRADERMAL TB (test code = *[facility] PPD SKIN TEST INTRADERMAL TB) None N PPD placed to ri ght forearm. Lot #[id number] exp 05/2014Patient advised to RTC in 48 hrs for PPD reading.Negative readining on 04/27/2013/pg HIV 1 ANTIBODY SCRN ([id number])2013-04-25 00:00:00* Test Item Value Reference Range Interpretation Comme nts HIV 1/O/2 Abs-Index Value (test code = 09291-3) <1.00 N Index Value: Spe cimen reactivity relative to the negative cutoff. HIV 1/O/2 Abs, Qual (test code = 92519-8) Non Reactive N HIV-2 ANTIBODY (17585)2013-04-25 00:00:00* Test Item Value Reference Range Interpretation [...] presence of HIV-2 specific viral bands. HSVIG+HSVIIG+HSVIgM (87878)2013-04-25 00:00:00* Test Item Value Reference Range Interpretation [...] type specific testing. RPR (RAPID PLASMA REAGIN) (44633)2013-04-25 00:00:00* Test Item Value Reference Range Interpretation Comme nts RPR (test code = 26695-5) Non Reactive N HEPATITIS C ANTIBODY (04995)2013-04-25 00:00:00* Test Item Value Reference Range Interpretation [...] a more specific supplemental or PCR testing. [facility] offers HCV Ab w/Reflex to Verification test #[id number]. *[facility] (69628)2013-04-25 00:00:00* Test Item Value Reference Range Interpretation Comme nts *[facility] (t est code = *[facility] ) Negative N Chlamydia/GC Amplification(APTIMA SWAB) (87621)2013-04-25 00:00:00* Test Item Value Reference Range Interpretation Comme nts Chlamydia trachomatis, ANDRES (test code = 79833-1) Negative N Neisseria gonorrhoeae, ANDRES (test code = 87039-1) Negative N Please note: (test code = Please note:) [facility] N Acceptable specimens for this test are male urethral swab,endocervical swab and liquid based pap specimens, vaginal swabs inAPTIMA transports and first void urine. See online Directory ofServices for test number for rectal and pharyngeal specimens. *[facility]PD SKIN TEST INTRADERMAL TB (93787)2013-04-25 00:00:00* Test Item Value Reference Range Interpretation Comme nts *[facility] SKIN TEST INTRADERMAL TB (test code = *[facility] SKIN TEST INTRADERMAL TB) None N PPD placed to ri ght forearm. Lot #[id number] exp 05/2014Patient advised to RTC in 48 hrs for PPD reading.Negative readining on 04/27/2013/pg HIV 1 ANTIBODY SCRN (21414)2013-04-25 00:00:00* Test Item Value Reference Range Interpretation Comme nts HIV 1/O/2 Abs-Index Value (test code = 83439-4) <1.00 N Index Value: Spe cimen reactivity relative to the negative cutoff. HIV 1/O/2 Abs, Qual (test code = 02497-3) Non Reactive N HIV-2 ANTIBODY (82445)2013-04-25 00:00:00* Test Item Value Reference Range Interpretation [...] presence of HIV-2 specific viral bands. HSVIG+HSVIIG+HSVIgM (49956)2013-04-25 00:00:00* Test Item Value Reference Range Interpretation [...] type specific testing. RPR (RAPID PLASMA REAGIN) (08814)2013-04-25 00:00:00* Test Item Value Reference Range Interpretation Comme nts RPR (test code = 59721-2) Non Reactive N HEPATITIS C ANTIBODY (03666)2013-04-25 00:00:00* Test Item Value Reference Range Interpretation [...] a more specific supplemental or PCR testing. [facility] offers HCV Ab w/Reflex to Verification test #[id number]. Chlamydia/GC Amplification(APTIMA SWAB) (58390)2013-04-25 00:00:00* Test Item Value Reference Range Interpretation Comme nts Chlamydia trachomatis, ANDRES (test code = 79348-7) Negative N Neisseria gonorrhoeae, ANDRES (test code = 75855-1) Negative N Please note: (test code = Please note:) [facility] N Acceptable specimens for this test are male urethral swab,endocervical swab and liquid based pap specimens, vaginal swabs inAPTIMA transports and first void urine. See online Directory ofServices for test number for rectal and pharyngeal specimens. *[facility] (17146)2013-04-25 00:00:00* Test Item Value Reference Range Interpretation Comme nts *[facility] (t est code = *[facility] ) Negative N *[facility]PD SKIN TEST INTRADERMAL TB (74434)2013-04-25 00:00:00* Test Item Value Reference Range Interpretation Comme nts *[facility]PD SKIN TEST INTRADERMAL TB (test code = *[facility] SKIN TEST INTRADERMAL TB) None N PPD placed to ri ght forearm. Lot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
[2024-07-22] MEDS ORDERED: NA CHLORIDE 0.9% 0 ML ONE (18:30)
[2024-07-22] MEDS ORDERED: ONDANSETRON 4 MG/2 ML VIAL ONE (18:30)
[2024-07-22] MEDS ORDERED: FAMOTIDINE 20 MG/2 ML VIAL IV ONE (18:30)
[2024-07-22 18:33] LABS: Absolute Basophils 0.1 K/uL (0-0.5); Absolute Eosinophils 0.2 K/uL (0-0.5); Absolute Lymphocytes (CBC) 5.1 K/uL (0.7-4.9); Absolute Neutrophil 4.9 K/uL (1.8-8.0); Basophils % 0.7 % (0-1.3); Hematocrit 38.1 % (36.0-45.0); Lymphocytes % 44.6 % (15.3-44.8); MCH 31.7 pg (27.0-35.0); MCHC 34.2 g/dL (32.0-36.0); MCV 92.8 fL (80-100); MPV 7.3 fL (7.6-11.3); Monocytes % 9.2 % (3.3-12.3); Neutrophils % 43.5 % (41.7-73.7); Nucleated Red Blood Cells % 0.1 % (0-0); Platelets 279 thou/uL (152-406); RBC Red Blood Cell Count 4.11 M/uL (3.86-4.86)
[2024-07-22 18:50] LABS: SARS-CoV-2 Antigen CONTROL BLUE LINE VIS/BG OK; SARS-CoV-2 Antigen Rapid Res Negative (Negative)
[2024-07-22 19:02] LABS: Specific Gravity > 1.030 (1.005-1.030)
[2024-07-22 19:04] LABS: Sqamous Epithelial 20-50 /HPF (None Seen); Urine Bacteria <20 /HPF (<20); Urine Bilirubin NEGATIVE (Negative); Urine Blood Negative (Negative); Urine Clarity Extremely Turbid (Clear); Urine Color Yellow (Yellow); Urine Culture Reflex Order NOT NEEDED; Urine Glucose NEGATIVE (Negative); Urine Ketones TRACE (Negative); Urine Microscopic Reflex YN ORDER UMIC; Urine Mucus 2+ /HPF (None Seen); Urine Nitrite NEGATIVE (Negative); Urine Protein TRACE (Negative); Urine Urobilinogen 1+ (Normal); Urine Yeast (Budding) Trace /HPF (None Seen); Urine pH 5.5 (5.0-7.0)
[2024-07-22 19:15] LABS: Albumin 2.9 g/dL (3.4-5.0); Albumin/Globulin Ratio 0.7 (1.1-1.8); Anion Gap 9.8 mEq/L (5.0-15.0); Bilirubin Total 0.3 mg/dL (0.2-1.0); Globulin 4.1 g/dL (2.3-3.5); Potassium 3.8 mEq/L (3.5-5.1)
[2024-07-22] MEDS ORDERED: DIPHENHYDRAMINE 50 MG/ML VIAL ONE (19:18)
[2024-07-22] MEDS ORDERED: ACETAMINOPHEN 325 MG TABLET ONE (19:18)
[2024-07-22] MEDS ORDERED: METOCLOPRAMIDE 10 MG/2mL INJ ONE (19:18)
[2024-07-22] MEDS ORDERED: NA CHLORIDE 0.9% 50 ML ONE (19:32)
[2024-07-22] MEDS ORDERED: CEFTRIAXONE 1000 MG/VIAL ONE (19:32)
--- NOTE | 2024-07-22 20:04 | ER ---
Nurse's Notes [facility] Name: Trisha Cuadra Age: 28 yrs Sex: Female : 1995 Arrival Date: 07/22/2024 Time: 17:20 Bed 10 Private MD: Diagnosis: Nausea;Cellulitis of other sites-right breast;Abnormal results of liver function studies; related conditions, unspecified, unspecified trimester Presentation: 07/22 17:44 Chief complaint: Patient states: fever x 2-3 days, right breast is red and swollen, pt aa5 states "I am and I need proof of ", reports positive test x 1 month ago. Pt reports vomiting x 1 month ago. Coronavirus screen: vomiting. Ebola Screen: Patient denies travel to an Ebola-affected area in the 21 days before illness onset. Initial Sepsis Screen: Does the patient meet any 2 criteria? HR > 90 bpm. Does the patient have a suspected source of infection? No. Patient's initial sepsis screen is negative. Risk Assessment: Do you want to hurt yourself or someone else? Patient reports no desire to harm self or others. Onset of symptoms was June 2024. 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 - Infectious Disease History:: Denies. - Social history:: Smoking status: Patient reports the use of cigarette tobacco products, smokes one pack cigarettes per day. Screenin:00 [facility] ED Fall Risk Assessment (Adult) History of falling in the last 3 months, jl7 including since admission No falls in past 3 months (0 pts) Confusion or Disorientation No (0 pts) Intoxicated or Sedated No (0 pts) Impaired Gait No (0 pts) Mobility Assist Device Used No (0 pt) Altered Elimination No (0 pt) Score/Fall Risk Level 0 - 2 = Low Risk Oriented to surroundings, Maintained a safe environment. Abuse screen: Denies threats or abuse. Denies injuries from another. Nutritional screening: No deficits noted. Tuberculosis screening: No symptoms or risk factors identified. Assessment: 18:00 General: Appears in no apparent distress. uncomfortable, Behavior is calm, cooperative, jl7 appropriate for age. Pain: Complains of pain in Headache Pain currently is 5 out of 10 on a pain scale. Neuro: Level of Consciousness is awake, alert, obeys commands, Oriented to person, place, time, situation. Cardiovascular: Patient's skin is warm and dry. Respiratory: Airway is patent Respiratory effort is even, unlabored, Respiratory pattern is regular, symmetrical. GI: Reports nausea. Derm: Skin is pink, warm \\T\\ dry. 19:03 Reassessment: Patient appears in no apparent distress at this time. Patient and/or al5 family updated on plan of care and expected duration. Pain level reassessed. Patient is alert, oriented x 3, equal unlabored respirations, skin warm/dry/pink. reports nausea improved, SNELL still 5/10, ERP notified, see MAR for orders. 19:36 General: Appears in no apparent distress. Behavior is calm, cooperative. Neuro: Level al5 of Consciousness is awake, alert, obeys commands, Oriented to person, place, time, situation. Cardiovascular: Patient's skin is warm and dry. Respiratory: Airway is patent Respiratory effort is even, unlabored, Respiratory pattern is regular, symmetrical. Derm: Skin is intact, Skin is pink, warm \\T\\ dry. normal. Vital Signs: 17:44 BP 86 / 53; Pulse 106; Resp 18 S; Temp 99.1(O); Pulse Ox 98% on R/A; Weight 56.7 kg aa5 (R); Height 5 ft. 3 in. (R); 18:39 BP 97 / 56; Pulse 100; Resp 15; Pulse Ox 99% ; Pain 5/10; jl7 19:30 BP 97 / 64; Pulse 91; Resp 18; Pulse Ox 98% on R/A; al5 20:38 BP 109 / 62; Pulse 68; Resp 16; Pulse Ox 98% on R/A; al5 17:44 Body Mass Index 22.14 (56.70 kg, 160.02 cm) aa5 18:39 Pain Scale: Adult jl7 ED Course: 17:23 Patient arrived in ED. mg5 17:25 Frank Matthew PA is PHCP. cp 17:25 Frank Pineda MD is Attending Physician. cp 17:33 Patient's name was called from ER lobby. No response. aa5 17:40 Patient's name was called from ER lobby. No response. aa5 17:44 Arm band placed on. aa5 17:45 Triage completed. aa5 18:00 Patient has correct armband on for positive identification. Provided Education on: use jl7 of call retana. 18:05 Laurie Mina RN is Primary Nurse. jl7 18:30 Initial lab(s) drawn, by nm, sent to lab. Inserted saline lock: 20 gauge in left upper zm arm, using aseptic technique. Blood collected. Flushed with 10 mL NS. 18:30 Urine collected: clean catch specimen, cloudy, COVID swab sent to lab. Flu and/or RSV jl7 swab sent to lab. 19:05 Primary Nurse role handed off by Laurie Mina RN jl7 19:13 Anne-Marie Coleman RN is Primary Nurse. al5 20:36 Assisted provider with: breast exam. IV discontinued, intact, bleeding controlled, No al5 redness/swelling at site. Pressure dressing applied. Administered Medications: 18:35 Drug: NS 0.9% IV 1000 ml IV at 999 ml/hr Per protocol Route: IV; Rate: 999 ml/hr; Site: [facility] left upper arm; 20:39 Follow up: Response: No adverse reaction; IV Status: Completed infusion; IV Intake: al5 1000ml 18:36 Drug: Ondansetron IVP 4 mg IVP once; over 2 minutes Route: IVP; Site: left upper arm; jl7 19:05 Follow up: Response: No adverse reaction; Nausea is decreased al5 18:37 Drug: Famotidine IVP 20 mg IVP once; dilute with 10 mL 0.9% NaCl; give over 2 minutes jl7 Route: IVP; Site: left upper arm; 19:05 Follow up: Response: No adverse reaction al5 19:29 Drug: Acetaminophen PO 650 mg PO once Route: PO; al5 20:37 Follow up: Response: No adverse reaction; Pain is decreased al5 19:30 Drug: metoCLOPramide IVP 10 mg IVP once; over 1 to 2 minutes Route: IVP; Site: left al5 antecubital; 20:37 Follow up: Response: No adverse reaction; Pain is decreased al5 19:30 Drug: diphenhydrAMINE IVP 25 mg IVP once Route: IVP; Site: left antecubital; al5 20:37 Follow up: Response: No adverse reaction; Pain is decreased al5 19:36 Drug: Rocephin IV 1 grams IV at calculated rate once; Given slow IV push per pharmacy al5 instructions Route: IV; Rate: calculated rate; Site: left antecubital; 20:37 Follow up: Response: No adverse reaction; IV Status: Completed infusion; IV Intake: [id number] 20:37 Not Given (Patient Refused): ns 0.9% 1000 ml IV at 1 bolus Per protocol; 1000 mL bolus al5 Medication: 18:00 VIS not applicable for this client. jl7 Intake: 20:37 IV: 50ml; Total: 50ml. al5 20:39 IV: 1000ml; Total: 1050ml. al5 Outcome: 20:03 Discharge ordered by MD. cp 20:38 Discharged to home ambulatory, with family, al5 20:38 Condition: good 20:38 Discharge instructions given to patient, Instructed on discharge instructions, follow up and referral plans. medication usage, Demonstrated understanding of instructions, follow-up care, medications, Prescriptions given X 3, 20:38 Patient left the ED. al5 Signatures: Brandie Farooq, RN RN aa5 Frank Matthew PA PA cp Leal, Jahala, RN RN jl7 Pippa Wilburn Jewell 5 Anne-Marie Coleman RN RN al5
--- NOTE | 2024-07-22 20:05 | EDPHYS ---
Physician Documentation [facility] Name: Trisha Cuadra Age: 28 yrs Sex: Female : 1995 Arrival Date: 07/22/2024 Time: 17:20 Bed 10 Private MD: MIREYA Physician Frank Pineda HPI: 07/22 18:05 This 28 yrs old Female presents to ER via Ambulatory with complaints of Fever. cp 18:05 The patient reports fever, not measured (subjective). cp 18:05 Onset: The symptoms/episode began/occurred 3 day(s) ago. cp 18:05 Associated signs and symptoms: Pertinent positives: vomiting, swelling and redness to cp right breast. 18:05 Patient reports she is currently . unsure how far along. requesting cp verification of . 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 - Infectious Disease History:: Denies. - Social history:: Smoking status: Patient reports the use of cigarette tobacco products, smokes one pack cigarettes per day. ROS: 18:10 Constitutional: Positive for fever, Negative for body aches, chills, poor PO intake, cp 18:10 Eyes: Negative for injury, pain, redness, and discharge, cp 18:10 ENT: Negative for drainage from ear(s), ear pain, sore throat, difficulty swallowing, difficulty handling secretions, 18:10 Respiratory: Negative for cough, shortness of breath, wheezing, 18:10 Abdomen/GI: Positive for nausea and vomiting, Negative for abdominal pain, 18:10 : Negative for urinary symptoms, vaginal bleeding, vaginal discharge, 18:10 Skin: Positive for erythema, swelling, of the right breast, 18:10 All other systems are negative, Exam: 18:15 Constitutional: The patient appears in no acute distress, alert, awake, non-toxic, well cp developed, well nourished, 18:15 Head/Face: Normocephalic, atraumatic. cp 18:15 Eyes: Periorbital structures: appear normal, Conjunctiva: normal, no exudate, no injection, Sclera: no appreciated abnormality, Lids and lashes: appear normal, bilaterally, 18:15 ENT: External ear(s): are unremarkable, Nose: is normal, Mouth: Lips: moist, Oral mucosa: pink and intact, moist, Posterior pharynx: is normal, airway is patent, no erythema, no exudate, 18:15 Neck: ROM/movement: is normal, is supple, without pain, no range of motions limitations, 18:15 Chest/axilla: Breasts: cellulitis, that is mild of the right breast, swelling, that is mild of the right breast, tenderness, that is mild of the right breast, 18:15 Cardiovascular: Rate: tachycardic, Rhythm: regular, 18:15 Respiratory: the patient does not display signs of respiratory distress, Respirations: normal, no use of accessory muscles, no retractions, labored breathing, is not present, Breath sounds: are clear throughout, no decreased breath sounds, no stridor, no wheezing, 18:15 Abdomen/GI: Inspection: abdomen appears normal, Palpation: abdomen is soft and non-tender, in all quadrants, 18:15 Neuro: Orientation: to person, place \T\ time. Mentation: is normal, Vital Signs: 17:44 BP 86 / 53; Pulse 106; Resp 18 S; Temp 99.1(O); Pulse Ox 98% on R/A; Weight 56.7 kg aa5 (R); Height 5 ft. 3 in. (R); 18:39 BP 97 / 56; Pulse 100; Resp 15; Pulse Ox 99% ; Pain 5/10; jl7 19:30 BP 97 / 64; Pulse 91; Resp 18; Pulse Ox 98% on R/A; al5 20:38 BP 109 / 62; Pulse 68; Resp 16; Pulse Ox 98% on R/A; al5 17:44 Body Mass Index 22.14 (56.70 kg, 160.02 cm) aa5 18:39 Pain Scale: Adult jl7 MDM: 17:47 Patient medically screened. [facility] 18:30 Differential diagnosis: viral Infection, bacterial infection, URI, UTI, cellulitis, cp abscess. 19:59 Data reviewed: vital signs, nurses notes, lab test result(s). Response to treatment: cp the patient's symptoms have markedly improved after treatment, and as a result, I will discharge patient. Refusal of service: The patient/guardian displays adequate decision making capability and despite a detailed discussion of alternatives, benefits, risks, and consequences refuses: US of gallbladder and transvaginal US. 07/22 17:59 Order name: Abo/rh Typing; Complete Time: 19:17 07/22 17:59 Order name: CBC with Diff; Complete Time: 19:04 07/22 20:01 Interpretation: Reviewed. 07/22 17:59 Order name: Test, Urine; Complete Time: 19:04 07/22 17:59 Order name: Quantitative Hcg; Complete Time: 19:17 07/22 19:17 Interpretation: Reviewed. 07/22 17:59 Order name: Urinalysis w/ reflexes; Complete Time: 19:05 07/22 19:05 Interpretation: Reviewed. 07/22 17:59 Order name: SARS RAPID; Complete Time: 19:04 07/22 17:59 Order name: Influenza Screen (a \T\ B); Complete Time: 19:04 07/22 17:59 Order name: CMP; Complete Time: 19:17 07/22 19:18 Interpretation: Normal except: NA 134; AST 39; ALT 62; ALK 132; CA 8.4; ALB 2.9; GLOB cp 4.1; A/G 0.7. 07/22 17:59 Order name: IV Saline Lock; Complete Time: 18:28 07/22 17:59 Order name: Labs collected and sent; Complete Time: 18:28 07/22 17:59 Order name: NPO; Complete Time: 18:28 07/22 20:01 Order name: PO challenge; Complete Time: 20:37 cp Administered Medications: 18:35 Drug: NS 0.9% IV 1000 ml IV at 999 ml/hr Per protocol Route: IV; Rate: 999 ml/hr; Site: [facility] left upper arm; 20:39 Follow up: Response: No adverse reaction; IV Status: Completed infusion; IV Intake: al5 1000ml 18:36 Drug: Ondansetron IVP 4 mg IVP once; over 2 minutes Route: IVP; Site: left upper arm; [facility] 19:05 Follow up: Response: No adverse reaction; Nausea is decreased al5 18:37 Drug: Famotidine IVP 20 mg IVP once; dilute with 10 mL 0.9% NaCl; give over 2 minutes jl7 Route: IVP; Site: left upper arm; 19:05 Follow up: Response: No adverse reaction al5 19:29 Drug: Acetaminophen PO 650 mg PO once Route: PO; al5 20:37 Follow up: Response: No adverse reaction; Pain is decreased al5 19:30 Drug: metoCLOPramide IVP 10 mg IVP once; over 1 to 2 minutes Route: IVP; Site: left al5 antecubital; 20:37 Follow up: Response: No adverse reaction; Pain is decreased al5 19:30 Drug: diphenhydrAMINE IVP 25 mg IVP once Route: IVP; Site: left antecubital; al5 20:37 Follow up: Response: No adverse reaction; Pain is decreased al5 19:36 Drug: Rocephin IV 1 grams IV at calculated rate once; Given slow IV push per pharmacy al5 instructions Route: IV; Rate: calculated rate; Site: left antecubital; 20:37 Follow up: Response: No adverse reaction; IV Status: Completed infusion; IV Intake: [id number] 20:37 Not Given (Patient Refused): ns 0.9% 1000 ml IV at 1 bolus Per protocol; 1000 mL bolus al5 Disposition: 07/23 15:57 Co-signature as Attending Physician, Frank Pineda MD I agree with the assessment and ernst plan of care. Disposition Summary: 07/22/24 20:03 Discharge Ordered Notes: Location: Home cp Problem: new cp Symptoms: have improved cp Condition: Stable cp Diagnosis - Nausea cp - Cellulitis of other sites - right breast cp - Abnormal results of liver function studies cp - related conditions, unspecified, unspecified trimester cp Followup: cp - With: Private Physician - When: 1 week - Reason: Recheck today's complaints Discharge Instructions: - Discharge Summary Sheet cp - Abdominal Pain During cp - Nausea, Adult cp - Care cp - Warning Signs During cp Forms: - Medication Reconciliation Form cp - Antibiotic Education cp - Prescription Opioid Use cp - Patient Portal Instructions cp - Leadership Thank You Letter cp Prescriptions: - 114-iron a-g-folate 1 20 mg iron- 1 mg Oral tablet - take 1 tablet ORAL route daily; 60 tablet; Refills: 0, Product Selection cp Permitted - Cephalexin 500 mg Oral Capsule - take 1 capsule ORAL route every 6 hours for 10 days; 40 capsule; Refills: 0, cp Product Selection Permitted - Zofran 4 mg Oral Tablet - take 1 tablet ORAL route every 12 hours As needed; 20 tablet; Refills: 0, cp Product Selection Permitted Signatures: Dispatcher [employer] EDMS Frank Pineda MD MD cha Calderon, Audri, RN RN aa5 Frank Matthew PA PA cp Leal, Jahala, RN RN jl7 Anne-Marie Coleman RN RN al5 Corrections: (The following items were deleted from the chart) 07/22 17:59 17:59 ABO/RH TYPING+BB.LAB.BRZ ordered. EDMS EDMS 17:59 17:59 CBC+H.LAB.BRZ ordered. EDMS EDMS 17:59 17:59 Test, Urine+UC.LAB.BRZ ordered. EDMS EDMS 17:59 17:59 QUANTITATIVE HCG+C.LAB.BRZ ordered. EDMS EDMS 17:59 17:59 Urinalysis+U.LAB.BRZ ordered. EDMS EDMS 17:59 17:59 SARS-COV-2 Antigen Rapid+I.LAB.BRZ ordered. EDMS EDMS 17:59 17:59 Influenza Screen (A \T\ B)+BA.LAB.BRZ ordered. EDMS EDMS 17:59 17:59 COMPREHENSIVE METABOLIC PANEL+C.LAB.BRZ ordered. EDMS EDMS 17:59 17:59 Transvaginal Ob+US.RAD.BRZ ordered. EDMS EDMS 20:04 19:19 Abdomen Limited+US.RAD.BRZ ordered. EDMS EDMS
[2024-07-22] MEDS ORDERED: NA CHLORIDE 0.9% 1,000 ML ONE (20:28)
[2024-07-22 21:46] VITALS: TEMP 99.1
[2024-07-22 21:49] VITALS: O2SAT 98
[2024-07-22 21:51] VITALS: BP 109/62
== END 2024-07-22 20:38 | disposition home or self-care (01) ==
LOC: ER 17:20
DX: O91.111 Abscess of breast associated with pregnancy, first trimester (principal); R94.5 Abnormal results of liver function studies; R11.0 Nausea; Z3A.00 Weeks of gestation of pregnancy not specified
CPT/HCPCS: 36415; 80053; 81001; 81025; 84702; 85025; 86900; 86901; 87804; 87811; 99284; J0696; J1200; J2405; J2765; J7030